=== PATIENT | male | born 1955 | race Caucasian/White ===

== ENCOUNTER 2017-11-30 18:23 | Emergency (ER) | payer OTHER ==
[~2017-11-30] VITALS: Ht 175.3 cm; Wt 90.9 kg
[~2017-11-30 18:23] MED LIST: ASPI-320 PO; DOXE10CA PO; FLUO20CA35 PO; FLV1 PO; LPT40 PO; METO25TA56 PO; MULT-589 PO; NTRSLP4 SL; PANT1TAB4 PO; PLV75 PO; RISP0.5T10 PO; THIA100T27 PO
[2017-11-30 18:29] VITALS: TEMP 36.8; Ht 175.3 cm; Wt 90.9 kg
[2017-11-30] MEDS ORDERED: CETIRIZINE HCL 10 MG TAB PO STA (19:05)
--- NOTE | 2017-11-30 19:17 | EMERGENCY ROOM VISIT NOTE ---
ED Visit Note First contact with patient: 18:36 I have seen and examined this patient with Mague Girard and generally agree with the treatment plan as discussed. Problem List Surgical Problems: (1) H/O umbilical hernia repair Status: Resolved (2) History of back surgery Status: Resolved (3) Hx of neck surgery Status: Resolved (4) S/P inguinal hernia repair Status: Resolved Current/Historical Medications Scheduled Aspirin (Aspirin EC Low Dose), 81 MG PO QAM Atorvastatin (Lipitor), 80 MG PO QAM Clopidogrel Bisulfate (Clopidogrel), 75 MG PO QAM Doxepin (Sinequan), 2 CAP PO HS Fluoxetine (Prozac), 20 MG PO QAM Folic Acid (Folic Acid), 1 MG PO QAM Metoprolol Tartrate (Lopressor) (Lopressor), 1 TAB PO twice weekly Multivitamins (Daily Dahlia), 1 TAB PO QAM Pantoprazole (Pantoprazole Sodium), 40 MG PO QAM Risperidone (Risperdal), 0.5 MG PO BID Thiamine HCl (Vitamin B-1), 100 MG PO QAM Scheduled PRN Nitroglycerin (Nitrostat), 0.4 MG SL PRN PRN for Chest Pain Allergies Coded Allergies: Lorazepam (Verified Adverse Reaction, Severe, SHORTNESS OF BREATH, 11/30/17) Pt. Received 0.5 mg of Ativan at 23:20, subsequently developed shortness of breath and decreased SPO2 - Pt. and subsequently received Flumazenil as well IV Lasix, EKG & CXR Vital Signs Date Time Temp Pulse Resp B/P (MAP) Pulse Ox O2 Delivery O2 Flow Rate FiO2 11/30/17 18:29 36.8 58 20 154/81 94 Room Air Departure Information Referrals Trenton Dean M.D. (PCP) Patient Instructions My [facility]
[2017-11-30] MEDS ORDERED: THIA1TAB11 PO (19:32)
[2017-11-30] MEDS ORDERED: PANT40TA PO (19:32)
[2017-11-30] MEDS ORDERED: LISI-729 PO (19:32)
[2017-11-30] MEDS ORDERED: METO25TA56 PO (19:32)
[2017-11-30] MEDS ORDERED: ASPI81TA28 PO (19:32)
[2017-11-30] MEDS ORDERED: ATOR-24 PO (19:32)
[2017-11-30] MEDS ORDERED: MULT-513 PO (19:32)
[2017-11-30] MEDS ORDERED: NTRGSL/4 UT (19:32)
--- NOTE | 2017-11-30 19:32 | EMERGENCY ROOM VISIT NOTE ---
ED Visit Note First contact with patient: 18:36 CHIEF COMPLAINT: right facial pain HISTORY OF PRESENT ILLNESS: This 62-year-old male patient presents to the emergency department, ambulatory, complaining of right-sided facial pain 3-4 weeks. The patient states he has been experiencing sharp pains intermittently for the past 4 weeks radiating from the right lower jaw to his right forehead. He states the pain does make the eyes water. The pain occurs almost every day at approximately 6 PM. The patient sits outside every day from 6 AM until about 4 PM. The pain occurs in the same location and is not reproducible. Patient denies any mouth swelling or drainage. He denies any dental pain. He denies any fever, chills, nausea, or neck pain. He does report some mild right- sided ear pain and states occasionally he gets vomiting in the mornings. The patient denies any congestion or upper respiratory infection symptoms, but does report some mild postnasal drainage. He has never experienced symptoms similar to this in the past. He has not seen his primary care provider regarding the complaints. REVIEW OF SYSTEMS: A 10 system review of systems was performed with positives and pertinent negatives listed in the history of present illness. All other systems were reviewed and are negative. ALLERGIES: Lorazepam PMH: Heart disease, hyperlipidemia SOCIAL HISTORY: The patient lives locally with family. He admits to smoking cigarettes but denies drug, alcohol use. PHYSICAL EXAM: VITALS: Vitals are noted on the nurse's note and reviewed by myself. Vital signs stable. GENERAL: This is a 62-year-old white male, in no acute distress, nondiaphoretic , well-developed well-nourished. SKIN: The skin was without rashes, erythema, edema, or bruising. There is no tenting of the skin. Capillary reflex less than 2 seconds. HEAD: Normocephalic atraumatic. No facial bone tenderness. No reproducible discomfort in the right mandible, TMJ, or forehead. EARS: Cerumen impaction bilaterally. After removal of most cerumen, external auditory canals clear, tympanic membranes pearly villegas without erythema or effusion bilaterally. EYES: Pupils equal round and reactive to light and accommodation. Conjunctivae without injection, sclerae without icterus. Extraocular movements intact. NOSE: Patent, turbinates without inflammation or discharge. No sinus tenderness. MOUTH: Mucous membranes moist. Tonsils are not enlarged. Pharynx without erythema or exudate. Uvula midline. Airway patent. Tongue does not deviate. NECK: Supple without nuchal rigidity. No lymphadenopathy. No thyromegaly. Cervical spine is nontender. No JVD. HEART: Regular rate and rhythm without murmurs gallops or rubs. LUNGS: Clear to auscultation bilaterally without wheezes, rales or rhonchi. No dullness to percussion. No retractions or accessory muscle use. ABDOMEN: Positive bowel sounds x 4. Normal tympanic percussion. Soft, nontender, without masses or organomegaly. Siegel sign negative. No guarding or rebound tenderness. MUSCULOSKELETAL: No muscle atrophy, erythema, or edema noted. Full range of motion without joint tenderness in all extremities. No tenderness to palpation. Normal gait. Strength 5/5 throughout. NEURO: Patient was alert and oriented to person place and time. Normal sensation to light and sharp touch. Deep tendon reflexes 2+ throughout. No focal neurological deficits. Cranial nerves II through XII intact. EMERGENCY DEPARTMENT COURSE: The patient was seen and evaluated as above. Symptoms are present in the evening after the patient has outside all day. I suspect an allergic rhinitis as the possible cause of the patient's abnormal symptoms. He states he does not experience the symptoms first thing in the morning, and they do seem worse while mowing the grass. The patient's discomfort did improve with Aleve. The patient was given a dose of Zyrtec here in the emergency department. I recommended he start on antihistamine such as Zyrtec 10 mg daily for the next week. I advised him to avoid being outside with high pollen counts or while people are mowing the grass nearby. The patient was agreeable to this treatment plan. He states he does feel that this could potentially be causing his symptoms. He was encouraged to follow-up closely with his PCP, especially if he does not experience significant improvement in symptoms. All questions answered patient satisfaction prior to discharge. Discharge instructions reviewed, the patient was discharged home in good condition. I attest that I have personally reviewed the patient's current medication list. Blood Pressure Screening: Patient was found to have a slightly elevated blood pressure due to circumstances. I do not believe that the patient requires hypertension monitoring. Differential diagnosis includes allergic rhinitis, upper respiratory infection, acute sinusitis, Alcala's palsy, intracranial hemorrhage, headache, stroke, migraine, otitis media, odontalgia, malignancy, and others DIAGNOSIS: Right facial pain The chart was completed utilizing [employer] Speech voice recognition software. Grammatical errors, random word insertions, pronoun errors, and incomplete sentences are an occasional consequence of this system due to software limitations, ambient noise, and hardware issues. Any formal questions or concerns about the content, text, or information contained within the body of this dictation should be directly addressed to the provider for clarification. Problem List Surgical Problems: (1) H/O umbilical hernia repair Status: Resolved (2) History of back surgery Status: Resolved (3) Hx of neck surgery Status: Resolved (4) S/P inguinal hernia repair Status: Resolved Current/Historical Medications Scheduled Aspirin (Aspirin Ec), 81 MG PO DAILY Atorvastatin (Lipitor), 40 MG PO DAILY Doxepin (Sinequan), 2 CAP PO HS Fluoxetine (Prozac), 20 MG PO QAM Folic Acid (Folic Acid), 1 MG PO QAM Lisinopril (Prinivil), 5 MG PO DAILY Metoprolol Tartrate (Lopressor) (Lopressor), 12.5 MG PO BID Multivitamins/Minerals (Mvi With Minerals), 1 TAB PO DAILY Nitroglycerin (Nitrostat), 0.4 MG UT PRN Pantoprazole (Protonix), 40 MG PO DAILY Risperidone (Risperdal), 0.5 MG PO BID Thiamine Mononitrate (Vitamin B1), 100 MG PO DAILY Allergies Coded Allergies: Lorazepam (Verified Adverse Reaction, Severe, SHORTNESS OF BREATH, 11/30/17) Pt. Received 0.5 mg of Ativan at 23:20, subsequently developed shortness of breath and decreased SPO2 - Pt. and subsequently received Flumazenil as well IV Lasix, EKG & CXR Vital Signs Date Time Temp Pulse Resp B/P (MAP) Pulse Ox O2 Delivery O2 Flow Rate FiO2 11/30/17 19:50 52 18 135/87 96 Room Air 11/30/17 18:29 36.8 58 20 154/81 94 Room Air Medications Administered Medications (Trade) Dose Ordered Sig/Ghada Route Start Time Stop Time Status Last Admin Dose Admin Cetirizine HCl (zyrTEC TAB) 10 mg NOW STAT PO 11/30/17 19:05 11/30/17 19:06 DC 11/30/17 19:36 10 MG Departure Information Impression Primary Impression: Right facial pain Dispostion Home / Self-Care Condition GOOD Referrals Trenton Dean M.D. (PCP) Patient Instructions ED Allergy Seasonal, My [facility] Additional Instructions You were seen in the emergency department today for right-sided facial pain. This has been ongoing for approximately 1 month. I do not suspect any acute, severe causes for your symptoms. As discussed, I suspect this may be allergy related. You should take Zyrtec 10 mg daily at bedtime in case of allergy related symptoms. Use Flonase as directed to help with any nasal congestion. Avoid sitting outside during high pollen counts or when grasses being mowed nearby to see if symptoms improve. Follow-up with your PCP in 2-3 days for re-check and ongoing management of your symptoms. Return to the ED for significantly worsening pain, swelling, numbness/tingling, redness, fever, chills, or other concerning symptoms.
[2017-11-30 19:50] VITALS: BP 135/87; PULSE 52; O2SAT 96
== END 2017-11-30 20:12 | disposition home or self-care (01) ==
LOC: C.EDB 18:25 → C.EDD 20:12
DX: R51 Headache (principal); E78.5 Hyperlipidemia, unspecified; F17.210 Nicotine dependence, cigarettes, uncomplicated; Z79.82 Long term (current) use of aspirin; Z79.899 Other long term (current) drug therapy; Z88.8 Allergy status to other drugs, medicaments and biological substances

== ENCOUNTER 2018-05-04 20:46 | Inpatient (IN) | END 2018-05-05 15:06 | disposition home or self-care (01) | LOC: ED 20:46 → 2N 05-05 01:26 → SUATTDRO 05-05 01:26 → 2N 05-05 02:06 ==

== ENCOUNTER 2022-04-25 09:54 | Inpatient (IN) ==
[2022-04-25] MEDS ORDERED: ALBUT/IPRATROP 3MG/0.5MG NEB 3 ML VIAL NEB ONE (10:09)
[2022-04-25] MEDS ORDERED: ALBUT/IPRATROP 3MG/0.5MG NEB 3 ML VIAL NEB STA (10:09)
[2022-04-25] MEDS ORDERED: methylPREDNISolone 125 MG/2 ML VIAL IV STA (10:09)
[2022-04-25] MEDS ORDERED: ALBUT/IPRATROP 3MG/0.5MG NEB 3 ML VIAL ONE (10:11)
[2022-04-25] MEDS ORDERED: AZITHROMYCIN 500 MG in DEXTROSE 5% 250 ML IV ONE (10:12)
[2022-04-25] MEDS: SODIUM CHLORIDE 0.9% 1000ML 1,000 ML IV SCH ×2 (10:25→17:56)
[2022-04-25 10:29] LABS: iSTAT Creatinine 1.7 mg/dl (0.6-1.3); iSTAT Hemoglobin 15.6 g/dl (14.0-18.0); iSTAT Ionized Calcium 1.07 mmol/l (1.12-1.32); iSTAT Potassium 4.8 mmol/L (3.3-5.0)
--- NOTE | 2022-04-25 10:33 | XRay Report ---
XR chest 1V portable CLINICAL HISTORY: Dyspnea TECHNIQUE: Single frontal radiograph of the chest was obtained. Comparison: Comparison is made to chest radiograph dated 721 FINDINGS: ACDF is noted. Calcified aortic knob is seen. Airspace opacities are seen in the bilateral lower lung s, right greater than left. No evidence of pleural effusion or pneumothorax. IMPRESSION: Bilateral lower lung predominant airspace opacities which may represent atelectasis, pneumonia, and/o r aspiration. ACT 112: Negative or not required by law. Electronically signed by: Jimenez Lawrence M.D. 04/25/2022 10:32 AM
[2022-04-25 10:48] LABS: Basophils # (auto) 0.03 K/uL (0-0.2); Basophils % (auto) 0.1 %; Eosinophils # (auto) 0.01 K/uL (0-0.50); Hematocrit (blood only) 41.8 % (40.1-51.0); Hemoglobin 15.3 g/dl (14.0-18.0); Immature Granulocytes % (auto) 1.4 %; Lymphocytes % (auto) 4.6 %; Mean Corpuscular Hemoglobin 37.2 pg (25.0-34.0); Mean Corpuscular Hgb Conc 36.6 g/dL (32.0-36.0); Mean Corpuscular Volume 101.7 fL (80.0-100.0); Monocytes # (auto) 1.26 K/uL (0.24-0.82); Monocytes % (auto) 5.8 %; Neutrophils # (auto) 19.29 K/uL (1.4-6.5); Neutrophils % (auto) 88.1 %; Platelet Count 280 K/uL (130-400); Polychromasia 1+; RDW Standard Deviation 60.3 fL (36.4-46.3); Red Blood Count 4.11 M/uL (4.63-6.08); Toxic Granulation 3+; White Blood Count 21.89 K/ul (4.8-10.8)
[2022-04-25] MEDS ORDERED: cefTRIAXone SODIUM 1,000 MG in DEXTROSE 5% AD-VAN 50 ML IV STA (10:50)
[2022-04-25 10:53] LABS: Albumin Globulin Ratio 0.8 (0.9-2); Albumin Level 3.5 gm/dl (3.4-5.0); Bilirubin,Total 1.9 mg/dl (0.2-1.0); Calcium 8.9 mg/dl (8.5-10.1); Creatinine Clr Calc Pharmacy 40.2 ml/min; Est GFR (African American) 45.1 ml/min; Est GFR (Non-African American) 38.9 ml/min; Globulin 4.4 gm/dl (2.5-4.0); Potassium 4.7 mmol/L (3.5-5.1); Total Protein 7.9 gm/dl (6.0-8.3)
[2022-04-25 10:57] LABS: Troponin I High Sensitivity 36.2 pg/ml (0-20)
--- NOTE | 2022-04-25 11:13 | Emergency Department Note ---
Impression & Plan Pneumonia, COPD with acute exacerbation ED Provider Note CHIEF COMPLAINT: Shortness of breath, cough HISTORY OF PRESENT ILLNESS: This 66-year-old male patient presents to the emergency department with complaints of shortness of breath and cough. The patient states this started several days ago but has become much worse over the last 24 hours. Patient states he currently "cannot breathe." He has never felt this poorly before. He does not wear home oxygen. He did stop smoking and drin stone alcohol 9 days ago. He states he quit "cold turkey." He denies any recent fevers or vomiting. He states he is unable to eat because of nausea, but has been holding fluids down. REVIEW OF SYSTEMS: A review of systems was performed with positives and pertinent negatives listed in the history of present illness. 10 systems were reviewed and are otherwise negative. ALLERGIES: see below MEDICATIONS: see below PMH: see below SOCIAL HISTORY: see below DDx: Reactive airway disease, pneumonia, pneumothorax, COPD, CHF, infections, cardiac ischemia, pulmonary embolism, musculoskeletal, gastrointestinal, as well as other pathologies. PHYSICAL EXAM: Vital signs reviewed. Noted to be hypoxic on room air General: Chronically ill-appearing 66-year-old male, in significant respiratory discomfort HEENT: No scleral icterus, PERRLA, neck supple. Atraumatic. Cardiovascular: Regular rate and rhythm, no extra sounds. Pulmonary: Coarse breath sounds bilaterally, increased work of breathing. On nasal cannula oxygen. Abdomen: Soft, nontender, nondistended, positive bowel sounds. Musculoskeletal: Atraumatic, no peripheral edema. Neurologic: Patient awake alert and oriented x 3, speech is clear Skin: Warm, dry, no rash EMERGENCY DEPARTMENT COURSE/MDM: This patient was evaluated and appeared to be in no significant distress. IV access was obtained the patient was placed on the waredresser noted to be in a sinus tachycardia. Chest x-ray normal sinus rhythm. Chest x-ray is consistent with COPD with patchy lower infiltrates. Blood cultures were obtained, patient was given DuoNeb treatment and IV Solu-Medrol. Patient's WBC is noted to be markedly elevated, procalcito jaky is elevated with a normal lactate. IV ceftriaxone and azithromycin were initiated. Patient's case was discussed with the hospitalist service for admission and further management. Patient is aware of the plan and agreed. MONITORING: An order for cardiac monitoring was placed and the patient is noted to be in a normal sinus rhythm at 99 bpm beats per minute. Chest x-ray to my interpretation reveals changes consistent with COPD and bilateral patchy airspace opacities, otherwise defer to radiology over read. EKG to my interpretation reveals sinus tachycardia with PACs at 101 bpm. Possib le left atrial enlargement. Nonspecific ST abnormality. QTC is 474. DISPOSITION:Admit Past Med/Surg History Medical History Anxiety Arthritis Chronic back pain GERD (gastroesophageal reflux disease) Hearing deficit Hyperlipidemia Hypertension Myocardial infarction 03/06/2017 On anticoagulant therapy on plavix daily Shoulder pain, right Surgical History History of arthroscopy of left shoulder x2 History of cardiac cath 2016 History of esophagogastroduodenoscopy (EGD) History of fusion of cervical spine x2--normal ROM History of heart artery stent 2 stents 02/2017 @ [facility] follows with Dr. Negro History of left inguinal hernia repair History of lumbar discectomy History of right inguinal hernia repair History of surgical procedure on eye proper using laser left History of tooth extraction all teeth removed Family History Mother Family history of diabetes mellitus Family hx of colon cancer Brother Family history of esophageal cancer twin brother Other No family history of adverse response to anesthesia Social History Smoking Status: Former smoker Tobacco Type: Cigarettes Cigarettes Per Day: 20 a day; Second Hand Exposure: No; Hx Alcohol Use: Yes Alcohol type: beer Hx Substance Use: No Preferred Language: [place] Communication Ability: Effective Marketing And Communications Officer Required: No Beliefs That Will Affect Care: None Current Living Situation: Family Feels Safe at Home: Yes Seatbelt Use: always Assistive Devices: None Allergies Allergies Allergy/AdvReac Type Severity Reaction Status Date / Time No Known Allergies Allergy Verified 04/25/22 14:59 Home Meds Previous Rx's Medication Instructions Recorded isosorbide mononitrate 30 mg 30 mg PO QAM #90 tabs 09/08/21 tablet,extended release 24 hr clopidogrel 75 mg tablet (Plavix) 75 mg PO QAM #90 tabs 09/09/21 metoprolol succinate 25 mg 25 mg PO QAM #90 tabs 09/30/21 tablet,extended release 24 hr atorvastatin 40 mg tablet (Lipitor) 40 mg PO QAM #90 tabs 02/06/22 fluticasone furoate 100 1 puff inhalation DAILY #1 inhaler 05/02/22 mcg-vilanterol 25 mcg/dose inhalation powder (Breo Ellipta) ipratropium 0.5 mg-albuterol 3 mg 3 ml inhalation Q6R PRN 05/02/22 (2.5 mg base)/3 mL nebulization cough/wheeze/shortness of breath soln #1 box levofloxacin 750 mg tablet 750 mg PO DAILY 3 days #3 tabs 05/02/22 lisinopril 10 mg tablet 5 mg PO QAM #30 tabs 05/02/22 prednisone 10 mg tablet 10 mg PO DIRECTED #20 tabs 05/02/22 thiamine HCl (vitamin B1) 100 mg 200 mg PO BID 30 days #120 tabs 05/02/22 tablet Results & Data (ED) Vital Signs Vital Signs - 24 hr 04/25/22 09:59 04/25/22 10:24 04/25/22 10:04 Temperature 36.0 C L Temperature Source Temporal Artery Scan Pulse Rate 101 H Pulse Rate [Finger] 99 H 101 H Pulse Rhythm Regular Pulse Strength Normal Respiratory Rate 40 H 38 H 42 H Respiratory Effort / Characteristics Spontaneous Accessory Muscle Use Short of Breath SOB on Exertion Tripoding Spontaneous Accessory Muscle Use Labored Moaning Pursed Lip Respiratory Depth Retractive Respiratory Pattern Tachypnea Tachypnea Blood Pressure 125/60 Blood Pressure [Right Arm] 95/65 L Blood Pressure Mean 81 Blood Pressure Mean [Right Arm] 75 Blood Pressure Position Sitting Blood Pressure Position [Right Arm] Sitting Pulse Oximetry 78 L 91 90 Oxygen Delivery Method Room Air Nebulizer Oxymask Oxygen Flow Rate 7 8 Sepsis Recent Fever Within 48 Hours No Sepsis New/Unexplained Change in Mental Status No Sepsis Action Taken by Nursing Physician Notified 04/25/22 10:04 Temperature Temperature Source Pulse Rate Pulse Rate [Finger] Pulse Rhythm Pulse Strength Respiratory Rate Respiratory Effort / Characteristics Respiratory Depth Respiratory Pattern Blood Pressure Blood Pressure [Right Arm] Blood Pressure Mean Blood Pressure Mean [Right Arm] Blood Pressure Position Blood Pressure Position [Right Arm] Pulse Oximetry 90 Oxygen Delivery Method Oxymask Oxygen Flow Rate 8 Sepsis Recent Fever Within 48 Hours Sepsis New/Unexplained Change in Mental Status Sepsis Action Taken by [facility] Medications Current Medication List: was personally reviewed by me Laboratory Data Attestation: I reviewed the patient's lab results. 05/02/22 06:14 05/02/22 06:14 Lab Results 04/25/22 04/25/22 04/25/22 Range/Units 10:15 10:15 10:15 WBC 21.89 H (4.8-10.8) K/ul RBC 4.11 L (4.63-6.08) M/uL Hgb 15.3 (14.0-18.0) g/dl POC Hgb (14.0-18.0) g/dl Hct 41.8 (40.1-51.0) % POC Hct (42-52) % MCV 101.7 H (80.0-100.0) fL MCH 37.2 H (25.0-34.0) pg MCHC 36.6 H (32.0-36.0) g/dL RDW Std Deviation 60.3 H (36.4-46.3) fL RDW Coeff of Beronica 16.0 H (11.5-14.5) % Plt Count 280 (130-400) K/uL MPV 10.0 (9.4-12.4) fL Immature Gran % (Auto) 1.4 % Neut % (Auto) 88.1 % Lymph % (Auto) 4.6 % [place] % (Auto) 5.8 % Eos % (Auto) 0.0 % Baso % (Auto) 0.1 % Neut # (Auto) 19.29 H (1.4-6.5) K/uL Lymph # (Auto) 1.00 L (1.2-3.4) K/uL [place] # (Auto) 1.26 H (0.24-0.82) K/uL Eos # (Auto) 0.01 (0-0.50) K/uL Baso # (Auto) 0.03 (0-0.2) K/uL Immature Gran # (Auto) 0.30 H (0.00-0.02) K/uL Toxic Granulation 3+ Polychromasia 1+ POC Sodium (135-144) mmol/L Sodium 131 L (136-145) mmol/L POC Potassium (3.3-5.0) mmol/L Potassium 4.7 (3.5-5.1) mmol/L POC Chloride (101-112) mmol/L Chloride 96 L (98-107) mmol/L Carbon Dioxide 23 (21-32) mmol/L POC Total CO2 (24-31) mmol/L Anion Gap 12 H (3-11) POC Anion Gap (16-25) mmol/L POC BUN (7-18) mg/dl BUN 37 H (6-23) mg/dl Creatinine 1.76 H (0.6-1.4) mg/dl POC Creatinine (0.6-1.3) mg/dl Est Cr Clr Drug Dosing 40.2 ml/min Est GFR ( Amer) 45.1 ml/min Est GFR (Non-Af Amer) 38.9 ml/min BUN/Creatinine Ratio 21.0 H (10-20) Glucose 172 H (70-99(Fasting)) mg/dl POC Glucose (other) (70-99) mg/dl Lactate (0.4-2.0) mmol/L Calcium 8.9 (8.5-10.1) mg/dl POC Ioniz Calcium Marti (1.12-1.32) mmol/l Total Bilirubin 1.9 H (0.2-1.0) mg/dl AST 100 H (13-39) U/L ALT 61 H (7-52) U/L Alkaline Phosphatase 101 (34-104) U/L Troponin I High Sens 36.2 H (0-20) pg/ml C-Reactive Protein 33.28 H (0-0.5) mg/dl Total Protein 7.9 (6.0-8.3) gm/dl Albumin 3.5 (3.4-5.0) gm/dl Globulin 4.4 H (2.5-4.0) gm/dl Albumin/Globulin Ratio 0.8 L (0.9-2) Procalcitonin (0-0.5) ng/ml SARS-CoV-2 (PCR) (Negative) 04/25/22 04/25/22 04/25/22 Range/Units 10:15 10:16 11:01 WBC (4.8-10.8) K/ul RBC (4.63-6.08) M/uL Hgb (14.0-18.0) g/dl POC Hgb 15.6 (14.0-18.0) g/dl Hct (40.1-51.0) % POC Hct 46 (42-52) % MCV (80.0-100.0) fL MCH (25.0-34.0) pg MCHC (32.0-36.0) g/dL RDW Std Deviation (36.4-46.3) fL RDW Coeff of Beronica (11.5-14.5) % Plt Count (130-400) K/uL MPV (9.4-12.4) fL Immature Gran % (Auto) % Neut % (Auto) % Lymph % (Auto) % [place] % (Auto) % Eos % (Auto) % Baso % (Auto) % Neut # (Auto) (1.4-6.5) K/uL Lymph # (Auto) (1.2-3.4) K/uL [place] # (Auto) (0.24-0.82) K/uL Eos # (Auto) (0-0.50) K/uL Baso # (Auto) (0-0.2) K/uL Immature Gran # (Auto) (0.00-0.02) K/uL Toxic Granulation Polychromasia POC Sodium 131 L (135-144) mmol/L Sodium (136-145) mmol/L POC Potassium 4.8 (3.3-5.0) mmol/L Potassium (3.5-5.1) mmol/L POC Chloride 98 L (101-112) mmol/L Chloride (98-107) mmol/L Carbon Dioxide (21-32) mmol/L POC Total CO2 22 L (24-31) mmol/L Anion Gap (3-11) POC Anion Gap 17.0 (16-25) mmol/L POC BUN 35 H (7-18) mg/dl BUN (6-23) mg/dl Creatinine (0.6-1.4) mg/dl POC Creatinine 1.7 H (0.6-1.3) mg/dl Est Cr Clr Drug Dosing ml/min Est GFR ( Amer) ml/min Est GFR (Non-Af Amer) ml/min BUN/Creatinine Ratio (10-20) Glucose (70-99(Fasting)) mg/dl POC Glucose (other) 172 H (70-99) mg/dl Lactate 1.6 (0.4-2.0) mmol/L Calcium (8.5-10.1) mg/dl POC Ioniz Calcium Marti 1.07 L (1.12-1.32) mmol/l Total Bilirubin (0.2-1.0) mg/dl AST (13-39) U/L ALT (7-52) U/L Alkaline Phosphatase (34-104) U/L Troponin I High Sens (0-20) pg/ml C-Reactive Protein (0-0.5) mg/dl Total Protein (6.0-8.3) gm/dl Albumin (3.4-5.0) gm/dl Globulin (2.5-4.0) gm/dl Albumin/Globulin Ratio (0.9-2) Procalcitonin 0.86 H (0-0.5) ng/ml SARS-CoV-2 (PCR) (Negative) 04/25/22 Range/Units 11:35 WBC (4.8-10.8) K/ul RBC (4.63-6.08) M/uL Hgb (14.0-18.0) g/dl POC Hgb (14.0-18.0) g/dl Hct (40.1-51.0) % POC Hct (42-52) % MCV (80.0-100.0) fL MCH (25.0-34.0) pg MCHC (32.0-36.0) g/dL RDW Std Deviation (36.4-46.3) fL RDW Coeff of Beronica (11.5-14.5) % Plt Count (130-400) K/uL MPV (9.4-12.4) fL Immature Gran % (Auto) % Neut % (Auto) % Lymph % (Auto) % [place] % (Auto) % Eos % (Auto) % Baso % (Auto) % Neut # (Auto) (1.4-6.5) K/uL Lymph # (Auto) (1.2-3.4) K/uL [place] # (Auto) (0.24-0.82) K/uL Eos # (Auto) (0-0.50) K/uL Baso # (Auto) (0-0.2) K/uL Immature Gran # (Auto) (0.00-0.02) K/uL Toxic Granulation Polychromasia POC Sodium (135-144) mmol/L Sodium (136-145) mmol/L POC Potassium (3.3-5.0) mmol/L Potassium (3.5-5.1) mmol/L POC Chloride (101-112) mmol/L Chloride (98-107) mmol/L Carbon Dioxide (21-32) mmol/L POC Total CO2 (24-31) mmol/L Anion Gap (3-11) POC Anion Gap (16-25) mmol/L POC BUN (7-18) mg/dl BUN (6-23) mg/dl Creatinine (0.6-1.4) mg/dl POC Creatinine (0.6-1.3) mg/dl Est Cr Clr Drug Dosing ml/min Est GFR ( Amer) ml/min Est GFR (Non-Af Amer) ml/min BUN/Creatinine Ratio (10-20) Glucose (70-99(Fasting)) mg/dl POC Glucose (other) (70-99) mg/dl Lactate (0.4-2.0) mmol/L Calcium (8.5-10.1) mg/dl POC Ioniz Calcium Marti (1.12-1.32) mmol/l Total Bilirubin (0.2-1.0) mg/dl AST (13-39) U/L ALT (7-52) U/L Alkaline Phosphatase (34-104) U/L Troponin I High Sens (0-20) pg/ml C-Reactive Protein (0-0.5) mg/dl Total Protein (6.0-8.3) gm/dl Albumin (3.4-5.0) gm/dl Globulin (2.5-4.0) gm/dl Albumin/Globulin Ratio (0.9-2) Procalcitonin (0-0.5) ng/ml SARS-CoV-2 (PCR) NEGATIVE (Negative) Administered Medications Discontinued Medications Albuterol (Albut/Ipratrop 3mg/0.5mg Neb 3 Ml Vial) 3 ml NEB NOW STA; Protocol Stop: 04/25/22 10:10 Last Admin: 04/25/22 10:25 Dose: 3 ml Documented By: ODALIS Albuterol (Albut/Ipratrop 3mg/0.5mg Neb 3 Ml Vial) 12 ml NEB ONE ONE; Protocol Stop: 04/25/22 10:10 Last Admin: 04/25/22 10:20 Dose: 12 ml Documented By: ARLEY Albuterol (Albut/Ipratrop 3mg/0.5mg Neb 3 Ml Vial) Confirm Administered Dose 3 ml .ROUTE .STK-MED ONE Stop: 04/25/22 10:12 Last Admin: 04/25/22 10:25 Dose: Not Given Documented By: ODALIS Albuterol (Albut/Ipratrop 3mg/0.5mg Neb 3 Ml Vial) 3 ml INH Q6R ANGEL Stop: 05/25/22 18:59 Last Admin: 05/02/22 13:20 Dose: Not Given Documented By: Admin: 05/02/22 07:14 Dose: 3 ml Documented By: Admin: 05/02/22 01:58 Dose: Not Given Documented By: Admin: 05/01/22 20:10 Dose: 3 ml Documented By: Admin: 05/01/22 12:32 Dose: 3 ml Documented By: Admin: 05/01/22 07:23 Dose: 3 ml Documented By: Admin: 05/01/22 01:12 Dose: 3 ml Documented By: Admin: 04/30/22 19:36 Dose: 3 ml Documented By: Admin: 04/30/22 13:07 Dose: 3 ml Documented By: Admin: 04/30/22 07:15 Dose: 3 ml Documented By: Admin: 04/30/22 00:12 Dose: 3 ml Documented By: Admin: 04/29/22 20:21 Dose: 3 ml Documented By: Admin: 04/29/22 12:53 Dose: 3 ml Documented By: Admin: 04/29/22 05:08 Dose: 3 ml Documented By: Admin: 04/29/22 00:25 Dose: 3 ml Documented By: Admin: 04/28/22 19:20 Dose: 3 ml Documented By: Admin: 04/28/22 13:02 Dose: 3 ml Documented By: Admin: 04/28/22 07:24 Dose: 3 ml Documented By: Admin: 04/28/22 00:38 Dose: 3 ml Documented By: Admin: 04/27/22 19:33 Dose: Not Given Documented By: Admin: 04/27/22 12:17 Dose: 3 ml Documented By: Admin: 04/27/22 05:04 Dose: 3 ml Documented By: Admin: 04/27/22 00:37 Dose: 3 ml Documented By: Admin: 04/26/22 19:42 Dose: 3 ml Documented By: Admin: 04/26/22 13:06 Dose: 3 ml Documented By: Admin: 04/26/22 05:40 Dose: 3 ml Documented By: Admin: 04/25/22 23:40 Dose: 3 ml Documented By: Admin: 04/25/22 19:14 Dose: 3 ml Documented By: FAVIO Atorvastatin Calcium (Atorvastatin 40 Mg Tab) 40 mg PO QA ANGEL Stop: 05/26/22 08:59 Last Admin: 05/02/22 08:20 Dose: 40 mg Documented By: Admin: 05/01/22 08:53 Dose: 40 mg Documented By: Admin: 04/30/22 08:36 Dose: 40 mg Documented By: Admin: 04/29/22 09:16 Dose: 40 mg Documented By: Admin: 04/28/22 09:52 Dose: 40 mg Documented By: Admin: 04/27/22 08:52 Dose: 40 mg Documented By: Admin: 04/26/22 08:53 Dose: 40 mg Documented By: SAUL Clopidogrel Bisulfate (Clopidogrel Bisulfate 75 Mg Tab) [facility] [place] Stop: 05/26/22 08:59 Last Admin: 05/02/22 09:44 Dose: 75 mg Documented By: Admin: 05/01/22 08:53 Dose: 75 mg Documented By: Admin: 04/30/22 08:36 Dose: 75 mg Documented By: Admin: 04/29/22 09:16 Dose: 75 mg Documented By: Admin: 04/28/22 09:52 Dose: 75 mg Documented By: Admin: 04/27/22 08:52 Dose: 75 mg Documented By: Admin: 04/26/22 08:53 Dose: 75 mg Documented By: SAUL Enoxaparin Sodium (Enoxaparin Inj 40 Mg/0.4 Ml Syr) 40 mg SQ Q24H ANGEL Stop: 05/25/22 16:59 Last Admin: 05/01/22 17:18 Dose: 40 mg Documented By: Admin: 04/30/22 17:45 Dose: 40 mg Documented By: Admin: 04/29/22 18:15 Dose: 40 mg Documented By: Admin: 04/28/22 17:19 Dose: 40 mg Documented By: Admin: 04/27/22 17:41 Dose: 40 mg Documented By: Admin: 04/26/22 17:17 Dose: 40 mg Documented By: Admin: 04/25/22 17:55 Dose: 40 mg Documented By: BISMARK Fluticasone/Vilanterol (Fluticasone/Vilanterol 100/25mcg 14 Puffs/Inhaler) 1 puffs INH DAILY ANGEL Stop: 05/26/22 14:14 Last Admin: 05/02/22 08:20 Dose: 1 puffs Documented By: Admin: 05/01/22 08:53 Dose: 1 puffs Documented By: Admin: 04/30/22 08:36 Dose: 1 puffs Documented By: Admin: 04/29/22 09:16 Dose: 1 puffs Documented By: Admin: 04/28/22 09:53 Dose: 1 puffs Documented By: Admin: 04/27/22 08:52 Dose: 1 puffs Documented By: Admin: 04/26/22 14:39 Dose: 1 puffs Documented By: SAUL Folic Acid (Folic Acid 1 Mg Tab) 1 mg PO QAM ANGEL Stop: 05/25/22 16:59 Last Admin: 05/02/22 08:20 Dose: 1 mg Documented By: Admin: 05/01/22 08:54 Dose: 1 mg Documented By: Admin: 04/30/22 08:36 Dose: 1 mg Documented By: Admin: 04/29/22 09:17 Dose: 1 mg Documented By: Admin: 04/28/22 09:52 Dose: 1 mg Documented By: Admin: 04/27/22 08:52 Dose: 1 mg Documented By: Admin: 04/26/22 08:52 Dose: 1 mg Documented By: Admin: 04/25/22 17:55 Dose: 1 mg Documented By: BISMARK Gabapentin (Gabapentin 600 Mg Tab) 600 mg PO NOW ONE Stop: 04/26/22 14:04 Last Admin: 04/26/22 14:39 Dose: 600 mg Documented By: SAUL Gabapentin (Gabapentin 100 Mg Cap) 100 mg PO ANGEL Stop: 04/27/22 06:01 Last Admin: 04/27/22 05:27 Dose: 100 mg Documented By: Admin: 04/26/22 21:43 Dose: 100 mg Documented By: ANDREAS Gabapentin (Gabapentin 600 Mg Tab) 600 mg PO Q24H ANGEL Stop: 04/27/22 14:31 Last Admin: 04/27/22 14:33 Dose: 600 mg Documented By: MARINE Gabapentin (Gabapentin 400 Mg Cap) 400 mg PO Q24H ANGEL Stop: 04/28/22 14:31 Last Admin: 04/28/22 14:56 Dose: 400 mg Documented By: SUHAIL Gabapentin (Gabapentin 100 Mg Cap) 200 mg PO Q24H ANGEL Stop: 04/29/22 14:31 Last Admin: 04/29/22 14:30 Dose: 200 mg Documented By: KT Guaifenesin (Guaifenesin 600 Mg Tabcr) 1,200 mg PO BID ANGEL Stop: 05/25/22 20:59 Last Admin: 05/02/22 08:19 Dose: 1,200 mg Documented By: Admin: 05/01/22 20:31 Dose: 1,200 mg Documented By: Admin: 05/01/22 08:53 Dose: 1,200 mg Documented By: Admin: 04/30/22 21:32 Dose: 1,200 mg Documented By: Admin: 04/30/22 08:37 Dose: 1,200 mg Documented By: Admin: 04/29/22 22:06 Dose: 1,200 mg Documented By: Admin: 04/29/22 09:17 Dose: 1,200 mg Documented By: Admin: 04/28/22 21:44 Dose: 1,200 mg Documented By: Admin: 04/28/22 09:52 Dose: 1,200 mg Documented By: Admin: 04/27/22 19:42 Dose: 1,200 mg Documented By: Admin: 04/27/22 08:52 Dose: 1,200 mg Documented By: Admin: 04/26/22 21:43 Dose: 1,200 mg Documented By: Admin: 04/26/22 08:52 Dose: 1,200 mg Documented By: Admin: 04/25/22 20:26 Dose: 1,200 mg Documented By: ILIA Azithromycin 500 mg/ Dextrose 255 mls @ 125 mls/hr IV ONE ONE Stop: 04/25/22 12:14 Last Infusion: 04/25/22 13:49 Dose: 0 mls/hr Documented By: [id number] Admin: 04/25/22 11:25 Dose: 125 mls/hr Documented By: [id number] Sodium Chloride (Nss 1000ml) 1,000 mls @ 50 mls/hr IV .Q20H ANGEL Stop: 05/25/22 10:14 Last Infusion: 04/26/22 17:37 Dose: 0 mls/hr Documented By: Admin: 04/26/22 09:26 Dose: 125 mls/hr Documented By: Infusion: 04/26/22 09:26 Dose: 125 mls/hr Documented By: Admin: 04/26/22 01:37 Dose: 125 mls/hr Documented By: Infusion: 04/26/22 01:37 Dose: 125 mls/hr Documented By: Admin: 04/25/22 17:56 Dose: 125 mls/hr Documented By: Infusion: 04/25/22 17:44 Dose: 0 mls/hr Documented By: Admin: 04/25/22 10:25 Dose: 125 mls/hr Documented By: ODALIS Ceftriaxone Sodium 1,000 mg/ (Dextrose) 50 mls @ 100 mls/hr IV NOW STA Stop: 04/25/22 11:19 Last Infusion: 04/25/22 13:49 Dose: 0 mls/hr Documented By: [id number] Admin: 04/25/22 11:25 Dose: 100 mls/hr Documented By: [id number] Ceftriaxone Sodium 1,000 mg/ (Dextrose) 50 mls @ 100 mls/hr IV Q24H ANGEL; Protocol Stop: 05/03/22 10:59 Last Infusion: 04/28/22 12:26 Dose: 0 mls/hr Documented By: KJRafa Admin: 04/28/22 11:45 Dose: 100 mls/hr Documented By: Infusion: 04/27/22 10:47 Dose: 0 mls/hr Documented By: Admin: 04/27/22 10:14 Dose: 100 mls/hr Documented By: Infusion: 04/26/22 14:29 Dose: 0 mls/hr Documented By: Admin: 04/26/22 13:54 Dose: 100 mls/hr Documented By: SAUL Azithromycin 500 mg/ Dextrose 255 mls @ 127.5 mls/hr IV Q24H ANGEL Stop: 05/03/22 10:59 Last Infusion: 04/28/22 12:26 Dose: 0 mls/hr Documented By: Admin: 04/28/22 10:02 Dose: 127.5 mls/hr Documented By: Infusion: 04/27/22 12:43 Dose: 0 mls/hr Documented By: Admin: 04/27/22 10:41 Dose: 127.5 mls/hr Documented By: Infusion: 04/26/22 14:08 Dose: 0 mls/hr Documented By: Admin: 04/26/22 11:31 Dose: 127.5 mls/hr Documented By: SAUL Methylprednisolone 40 mg/ (Syringe) 0.64 mls @ 1.5 mls/min IV BID ANGEL Stop: 05/26/22 20:59 Last Admin: 05/02/22 08:19 Dose: 1.5 mls/min Documented By: Admin: 05/01/22 20:28 Dose: 1.5 mls/min Documented By: Admin: 05/01/22 08:54 Dose: 1.5 mls/min Documented By: Admin: 04/30/22 21:33 Dose: 1.5 mls/min Documented By: Admin: 04/30/22 08:35 Dose: 1.5 mls/min Documented By: Admin: 04/29/22 22:07 Dose: 1.5 mls/min Documented By: Admin: 04/29/22 09:18 Dose: 1.5 mls/min Documented By: Admin: 04/28/22 21:44 Dose: 1.5 mls/min Documented By: Admin: 04/28/22 09:53 Dose: 1.5 mls/min Documented By: Admin: 04/27/22 19:42 Dose: 1.5 mls/min Documented By: Admin: 04/27/22 08:52 Dose: 1.5 mls/min Documented By: Admin: 04/26/22 21:43 Dose: 1.5 mls/min Documented By: ANDREAS Methylprednisolone 60 mg/ (Syringe) 0.96 mls @ 1.5 mls/min IV 0100 ONE Stop: 04/27/22 01:01 Last Admin: 04/27/22 01:41 Dose: 1.5 mls/min Documented By: ANDREAS Cefepime HCl 1,000 mg/ Syringe 10 mls @ 5 mls/min IV Q12H ANGEL; Protocol Stop: 05/06/22 08:44 Last Admin: 05/02/22 08:23 Dose: 5 mls/min Documented By: Admin: 05/01/22 20:27 Dose: 5 mls/min Documented By: Admin: 05/01/22 08:52 Dose: 5 mls/min Documented By: Admin: 04/30/22 21:32 Dose: 5 mls/min Documented By: Admin: 04/30/22 08:35 Dose: 5 mls/min Documented By: Admin: 04/29/22 22:18 Dose: 5 mls/min Documented By: Admin: 04/29/22 09:16 Dose: 5 mls/min Documented By: KT Insulin Aspart (Insulin Aspart Per Unit) 0 units SC ACHS ANGEL Stop: 05/29/22 21:59 Last Admin: 05/02/22 11:53 Dose: Not Given Documented By: Admin: 05/02/22 08:13 Dose: 2 units Documented By: SAUL Co-signed By: [email or web address] Admin: 05/01/22 20:54 Dose: 2 units Documented By: OSKAR Co-signed By: BEAU Admin: 05/01/22 17:01 Dose: 4 units Documented By: KAYLA Co-signed By: [id number] Admin: 05/01/22 12:23 Dose: 6 units Documented By: KAYLA Co-signed By: [id number] Admin: 05/01/22 08:36 Dose: 4 units Documented By: KAYLA Co-signed By: [id number] Admin: 04/30/22 21:32 Dose: Not Given Documented By: Admin: 04/30/22 17:14 Dose: 13 units Documented By: KAYLA Co-signed By: [id number] Admin: 04/30/22 12:40 Dose: 10 units Documented By: KAYLA Co-signed By: [id number] Admin: 04/30/22 08:26 Dose: 2 units Documented By: KAYLA Co-signed By: [id number] Admin: 04/29/22 22:05 Dose: 2 units Documented By: KIKA Co-signed By: BEAU Insulin Glargine (Lantus Per Unit Charge) 8 units SQ HS ANGEL Stop: 05/28/22 21:34 Last Admin: 05/01/22 20:55 Dose: 8 units Documented By: OSKAR Co-signed By: BEAU Admin: 04/30/22 21:32 Dose: 8 units Documented By: KIKA Co-signed By: MARIPOSA Admin: 04/29/22 22:05 Dose: 8 units Documented By: KIKA Co-signed By: BEAU Admin: 04/28/22 21:40 Dose: 8 units Documented By: KIKA Co-signed By: MARIPOSA Ioversol (Optiray 350 100ml) 113 ml IV ONCE ONE Stop: 04/26/22 15:18 Last Admin: 04/26/22 15:19 Dose: 113 ml Documented By: DON Isosorbide Mononitrate (Isosorbide [place] Extended Rel 30 Mg Tabcr) 30 mg PO QAM [facility] Stop: 05/26/22 08:59 Last Admin: 05/02/22 08:19 Dose: 30 mg Documented By: Admin: 05/01/22 08:53 Dose: 30 mg Documented By: Admin: 04/30/22 08:37 Dose: 30 mg Documented By: Admin: 04/29/22 09:17 Dose: 30 mg Documented By: Admin: 04/28/22 09:52 Dose: 30 mg Documented By: Admin: 04/27/22 08:52 Dose: 30 mg Documented By: Admin: 04/26/22 08:52 Dose: 30 mg Documented By: SAUL Levofloxacin (Levofloxacin 750 Mg Tab) 750 mg PO DAILY ANGEL Stop: 05/06/22 15:59 Last Admin: 05/02/22 15:06 Dose: 750 mg Documented By: SAUL Methylprednisolone (Methylprednisolone 125 Mg/2 Ml Vial) 60 mg IV NOW STA Stop: 04/25/22 10:10 Last Admin: 04/25/22 10:23 Dose: 60 mg Documented By: ODALIS Metoprolol Succinate (Metoprolol Succ 25mg Ext Rel Tab) [facility] [place] Stop: 05/26/22 08:59 Last Admin: 05/02/22 08:20 Dose: 25 mg Documented By: Admin: 05/01/22 08:53 Dose: 25 mg Documented By: Admin: 04/30/22 08:36 Dose: 25 mg Documented By: Admin: 04/29/22 09:18 Dose: 25 mg Documented By: Admin: 04/28/22 09:52 Dose: 25 mg Documented By: Admin: 04/27/22 08:52 Dose: 25 mg Documented By: Admin: 04/26/22 08:53 Dose: 25 mg Documented By: SAUL Prednisone (Prednisone 20 Mg Tab) 40 mg PO [facility] Stop: 05/01/22 08:59 Last Admin: 04/26/22 08:52 Dose: 40 mg Documented By: SAUL Sodium Chloride (Sodium Chlor 7% 4 Ml Neb) 4 ml NEB BIDR [facility] Stop: 05/27/22 20:59 Last Admin: 05/02/22 07:14 Dose: 4 ml Documented By: Admin: 05/01/22 20:10 Dose: 4 ml Documented By: Admin: 05/01/22 07:23 Dose: 4 ml Documented By: Admin: 04/30/22 19:36 Dose: 4 ml Documented By: Admin: 04/30/22 07:15 Dose: 4 ml Documented By: Admin: 04/29/22 20:21 Dose: 4 ml Documented By: Admin: 04/29/22 08:05 Dose: 4 ml Documented By: Admin: 04/28/22 19:21 Dose: 4 ml Documented By: Admin: 04/28/22 07:24 Dose: 4 ml Documented By: Admin: 04/27/22 20:33 Dose: Not Given Documented By: CS Thiamine HCl (Thiamine Hcl 100 Mg Tab) 100 mg PO [facility] Stop: 05/25/22 16:59 Last Admin: 05/02/22 08:19 Dose: 100 mg Documented By: Admin: 05/01/22 08:53 Dose: 100 mg Documented By: Admin: 04/30/22 08:36 Dose: 100 mg Documented By: Admin: 04/29/22 09:18 Dose: 100 mg Documented By: Admin: 04/28/22 09:52 Dose: 100 mg Documented By: Admin: 04/27/22 08:52 Dose: 100 mg Documented By: Admin: 04/26/22 08:52 Dose: 100 mg Documented By: Admin: 04/25/22 17:55 Dose: 100 mg Documented By: JRT Imaging Data Radiologist's Impression: Chest X-Ray 04/25/22 10:04 XR chest 1V portable CLINICAL HISTORY: Dyspnea TECHNIQUE: Single frontal radiograph of the chest was obtained. Comparison: Comparison is made to chest radiograph dated 721 FINDINGS: ACDF is noted. Calcified aortic knob is seen. Airspace opacities are seen in the bilateral lower lungs, right greater than left. No evidence of pleural effusion or pneumothorax. IMPRESSION: Bilateral lower lung predominant airspace opacities which may represent atelectasis, pneumonia, and/or aspiration. ACT 112: Negative or not required by law. Electronically signed by: Jimenez Lawrence M.D. 04/25/2022 10:32 AM Blood Pressure Blood Pressure Findings: Low blood pressure Discharge Plan Visit Data Chief Complaint: Cough Stated Complaint: COUGH X9 DAYS ED Provider: Belkys Lozano Discharge Problem: Pneumonia, COPD with acute exacerbation Patient Disposition: Admitted As Inpatient Discharge Instructions Interventions: ED Discharge Assessment Last Done: 04/25/22 15:53
--- NOTE | 2022-04-25 13:03 | History & Physical Report ---
Date of Service April 25, 2022 Assessment & Plan (1) Community acquired pneumonia: Plan: 9 days of night sweats, fatigue, weakness, anorexia. Presented hypoxic 78% on room air, tachypneic with RR 3040s, now breathing more comfortably after nebulizer treatment, IV steroids. CXR: Bilateral lower lung predominant airspace opacities which may represent atelectasis, pneumonia, and/or aspiration. WBC 21 with left shift, Pro-Farzad 0.86, lactate 1.6. CRP pending. COVID-negative. Will treat as CAP, with azithromycin and Rocephin Supportive care: DuoNebs scheduled and as needed, Mucinex, added prednisone, flutter valve and incentive spirometry, Tylenol for pain/fevers. (2) Acute respiratory failure: Plan: Secondary to pneumonia, patient does not wear oxygen at home but a longstand ing history of tobacco use, may have underlying COPD. ABG obtained on presentation, however CO2 on chemistry panel 23. Management of pneumonia as above. (3) Sepsis: Plan: Secondary to bacterial pneumonia, WBC 21, RR 3040s, HR > 90. Management of pneumonia/respiratory failure as above. (4) Acute kidney injury: Plan: Creatinine 1.76, baseline 0.7-0.9. Likely secondary to dehydration and infection. Received IVF in ED, will continue on the floor. Hold lisinopril until renal function improves. Monitor renal function on a.m. labs. Avoid nephrotoxins, renally dose medications as able. (5) Hyponatremia: Plan: 131, is fairly consistent with his baseline of the ears, likely secondary to beer potomania. We will give some IVF for YULISSA likely secondary to dehydration or infection, follow sodium on AM labs. (6) CAD, multiple vessel: Plan: Anterior STEMI 2016: SP PCI, SALBADOR to ostial LAD and circumflex. Repeat May 2018: Patent LAD stent, moderate LCx stent ISR, negative IFR mid RCA Continue metoprolol, isosorbide mononitrate; hold lisinopril due to YULISSA. Continue Plavix. Continue statin. (7) Ischemic cardiomyopathy: Plan: History of after his anterior STEMI in 2015, EF recovered in 19. Exercise SPECT 05/2018: Positive for small amount of mild anterior apical/apical ischemia (SDS 4), 7.2 METS, LVEF 56%. (8) HTN (hypertension): Plan: Patient is borderline hypotensive in the ED, did take his morning meds today, [employer] SERVICES DIRECTOR> metoprolol 25 mg daily, lisinopril 10 mg daily, isosorbide mononitrate 30 mg daily. Will have these scheduled to be given tomorrow, with hold parameters in the case the patient remains hypotensive. Monitor BP closely. (9) Rotator cuff tear, right: Plan: Follows with Dr. Lopez with orthopedic surgery, patient is planning to undergo reverse shoulder replacement this spring. Prescribed Percocet as needed for pain. (10) Alcohol use disorder: Plan: Patient regularly drinks 10 to 10 cans of beer daily, however has not been able to do so for 9 days given his illness. Has been tremulous for the past 9 days may be multifactorial to withdrawal and his night sweats, will place on AWSS this at risk protocol. Daily thiamine and folate supplementation. T bili 1.9, AST 100, ALT 61. Has a history of elevated LFTs, today they are mildly increased compared to labs from November 2020. Without any abdominal pain, vomiting, ascites. Suspect secondary to chronic alcohol use disorder. Continue to trend while admitted. (11) Tobacco abuse: Plan: Longstanding history of 1 pack/day tobacco use, has not smoked in 9 days due to illness. He is declining a nicotine patch at this time. Smoking cessation encouraged. Plan Admit to PCU. SCDs, Lovenox for VTE PPx. Conditional code: Yes to CPR/defibrillation/pressures, NO intubation/artificial airway as discussed with patient at bedside. His surrogate decision maker would be his , Sofia De La Cruz [phone] History of Present Illness Chief Complaint: fatigue, night sweats x 9 days Primary Care Provider: Trenton Dean MD Aram Pedritogloria is a 66-year-old male with past medical history significant for CAD, PAD, hypertension, dyslipidemia, alcohol use disorder, and tobacco use who is presenting today with 9 days of night sweats and fatigue. Nearly 2 weeks ago on , 04/14, patient began developing night sweats, fatigue, chills, and nausea. He has been taking NyQuil regularly for relief of symptoms, without success. He is struggling to eat much and has been only able to drink small amounts of fruit juices and water for the past 9 days, noting he has not had any alcohol, cigarettes, or formed meals for 9 days now. He has been somewhat tremulous which he attributes to both his night sweats and sudden alcohol cessation, otherwise is without any fevers, chest pain, cough, or shortness of breath but notes he just feels fatigued with any activities. He has not not vomited or had any abdominal pain, diarrhea, or constipation. He has not had any seizure-like activity, or audio, visual, or tactile hallucinations. On presentation to ED, he was 78% on room air, tachypneic with RR 3040s, borderline tachycardic and mildly hypotensive however maintaining MAP >65. Now on 6 L NC with SPO2 94%. Labs notable for WBC of 21 with left shift, sodium 131, BUN 37, creatinine 1.76, T bili 1.9, AST 100, ALT 60. Troponin 36.2. CRP and procalcitonin pending, lactate normal at 1.6. COVID-negative. CXR shows bilateral lower lung predominant airspace opacities likely representing atelectasis versus pneumonia versus aspiration. Allergies Allergy/AdvReac Type Severity Reaction Status Date / Time No Known Allergies Allergy Verified 04/25/22 14:59 Home Medications Medication Instructions Recorded Confirmed Type isosorbide mononitrate 30 mg 30 mg PO QAM #90 tabs 09/08/21 04/25/22 Rx tablet,extended release 24 hr clopidogrel 75 mg tablet (Plavix) 75 mg PO QAM #90 tabs 09/09/21 04/25/22 Rx metoprolol succinate 25 mg 25 mg PO QAM #90 tabs 09/30/21 04/25/22 Rx tablet,extended release 24 hr atorvastatin 40 mg tablet (Lipitor) 40 mg PO QAM #90 tabs 02/06/22 04/25/22 Rx fluticasone furoate 100 1 puff inhalation DAILY #1 inhaler 05/02/22 Rx mcg-vilanterol 25 mcg/dose inhalation powder (Breo Ellipta) ipratropium 0.5 mg-albuterol 3 mg 3 ml inhalation Q6R PRN 05/02/22 Rx (2.5 mg base)/3 mL nebulization cough/wheeze/shortness of breath soln #1 box levofloxacin 750 mg tablet 750 mg PO DAILY 3 days #3 tabs 05/02/22 Rx lisinopril 10 mg tablet 5 mg PO QAM #30 tabs 05/02/22 04/25/22 Rx prednisone 10 mg tablet 10 mg PO DIRECTED #20 tabs 05/02/22 Rx thiamine HCl (vitamin B1) 100 mg 200 mg PO BID 30 days #120 tabs 05/02/22 Rx tablet Past Med/Surg History Medical History Anxiety Arthritis Chronic back pain GERD (gastroesophageal reflux disease) Hearing deficit Hyperlipidemia Hypertension Myocardial infarction 03/06/2017 On anticoagulant therapy on plavix daily Shoulder pain, right Surgical History History of arthroscopy of left shoulder x2 History of cardiac cath 2016 History of esophagogastroduodenoscopy (EGD) History of fusion of cervical spine x2--normal ROM History of heart artery stent 2 stents 02/2017 @ [facility] follows with Dr. Negro History of left inguinal hernia repair History of lumbar discectomy History of right inguinal hernia repair History of surgical procedure on eye proper using laser left History of tooth extraction all teeth removed Family History Mother Family history of diabetes mellitus Family hx of colon cancer Brother Family history of esophageal cancer twin brother Other No family history of adverse response to anesthesia Social History Smoking Status: Former smoker Tobacco Type: Cigarettes Cigarettes Per Day: 20 a day; Second Hand Exposure: No; Hx Alcohol Use: Yes Alcohol type: beer Hx Substance Use: No Preferred Language: Romanian Communication Ability: Effective Production Recorder Required: No Beliefs That Will Affect Care: None Current Living Situation: Family Feels Safe at Home: Yes Seatbelt Use: always Assistive Devices: None Review of Systems Review of Systems: Constitutional: night sweats, fatigue, weakness, anorexia x9 days Eyes: No diplopia, no worsening or blurred vision ENT: normal hearing, no trouble swallowing Respiratory: chronic cough, no worsening cough, sputum, dyspnea at rest or on exertion Cardiovascular: No chest pain, tightness or palpitations Abdomen: No pain, nausea, vomiting, diarrhea or constipation : Denies dysuria, hematuria, increased urgency/frequency, urinary retention Musculoskeletal: No joint pain, calf pain, swelling Neurologic: No weakness, numbness/tingling, or balance problems Psychiatric: No anxiety or depression Skin: No rash or itch Physical Exam Physical Exam: General: awake, alert, no apparent distress, on 6 L NC Head: Normocephalic, atraumatic ENT: PERRL, EOMI, no pharyngeal exudate, mucous membranes moist Chest: Coarse breath sounds in bilateral lower lobes with increased work of breathing, no accessory muscle use, on 6 L NC Cardiac: Regular rate and rhythm, no murmur, no JVD, normal peripheral pulses, good capillary refill Abdominal: NABS x 4 quadrants, soft, nontender to palpation, no rebound, guarding or tenderness Extremities: Normal inspection, no peripheral edema or erythema, calfs nontender to palpation Psych: Normal mood and affect Neuro: AAO x 3, strength intact bilaterally and rated 5/5, no motor deficits, speech is clear, no peripheral sensory deficits Skin: no rash or erythema Results & Data Results & Data ([facility]) Vital Signs (Past 12 Hours) Vital Signs Temp Pulse Pulse Resp BP BP Pulse Ox 04/25/22 12:42 94 H 31 H 94 04/25/22 12:42 90/65 L 04/25/22 12:30 88 31 H 86 L 04/25/22 12:30 89/59 L 04/25/22 12:00 99 H 37 H 89 L 04/25/22 12:00 100/59 L 04/25/22 11:30 101 H 37 H 87 L 04/25/22 11:30 87/62 L 04/25/22 11:08 90/57 L 04/25/22 11:08 99 H 27 H 04/25/22 11:00 97 H 47 H 95 04/25/22 11:00 84/61 L 04/25/22 10:04 90 04/25/22 10:04 101 H 42 H 95/65 L 90 04/25/22 10:24 99 H 38 H 91 04/25/22 09:59 36.0 C L 101 H 40 H 125/60 78 L O2 Del Method O2 Flow Rate 04/25/22 12:42 Nasal Cannula 6 04/25/22 12:42 04/25/22 12:30 Nasal Cannula 4 04/25/22 12:30 04/25/22 12:00 Aerosol Mask 7 04/25/22 12:00 04/25/22 11:30 Aerosol Mask 7 04/25/22 11:30 04/25/22 11:08 04/25/22 11:08 04/25/22 11:00 Aerosol Mask 7 04/25/22 11:00 04/25/22 10:04 Oxymask 8 04/25/22 10:04 Oxymask 8 04/25/22 10:24 Nebulizer 7 04/25/22 09:59 Room Air Laboratory Results Abnormal lab results 04/25/22 04/25/22 04/25/22 Range/Units 10:15 10:15 10:15 WBC 21.89 H (4.8-10.8) K/ul RBC 4.11 L (4.63-6.08) M/uL MCV 101.7 H (80.0-100.0) fL MCH 37.2 H (25.0-34.0) pg MCHC 36.6 H (32.0-36.0) g/dL RDW Std Deviation 60.3 H (36.4-46.3) fL RDW Coeff of Beronica 16.0 H (11.5-14.5) % Neut # (Auto) 19.29 H (1.4-6.5) K/uL Lymph # (Auto) 1.00 L (1.2-3.4) K/uL Stearns # (Auto) 1.26 H (0.24-0.82) K/uL Immature Gran # (Auto) 0.30 H (0.00-0.02) K/uL POC Sodium (135-144) mmol/L Sodium 131 L (136-145) mmol/L POC Chloride (101-112) mmol/L Chloride 96 L (98-107) mmol/L POC Total CO2 (24-31) mmol/L Anion Gap 12 H (3-11) POC BUN (7-18) mg/dl BUN 37 H (6-23) mg/dl Creatinine 1.76 H (0.6-1.4) mg/dl POC Creatinine (0.6-1.3) mg/dl BUN/Creatinine Ratio 21.0 H (10-20) Glucose 172 H (70-99(Fasting)) mg/dl POC Glucose (other) (70-99) mg/dl POC Ioniz Calcium Marti (1.12-1.32) mmol/l Total Bilirubin 1.9 H (0.2-1.0) mg/dl AST 100 H (13-39) U/L ALT 61 H (7-52) U/L Troponin I High Sens 36.2 H (0-20) pg/ml Globulin 4.4 H (2.5-4.0) gm/dl Albumin/Globulin Ratio 0.8 L (0.9-2) Procalcitonin 0.86 H (0-0.5) ng/ml 04/25/22 Range/Units 10:16 WBC (4.8-10.8) K/ul RBC (4.63-6.08) M/uL MCV (80.0-100.0) fL MCH (25.0-34.0) pg MCHC (32.0-36.0) g/dL RDW Std Deviation (36.4-46.3) fL RDW Coeff of Beronica (11.5-14.5) % Neut # (Auto) (1.4-6.5) K/uL Lymph # (Auto) (1.2-3.4) K/uL Stearns # (Auto) (0.24-0.82) K/uL Immature Gran # (Auto) (0.00-0.02) K/uL POC Sodium 131 L (135-144) mmol/L Sodium (136-145) mmol/L POC Chloride 98 L (101-112) mmol/L Chloride (98-107) mmol/L POC Total CO2 22 L (24-31) mmol/L Anion Gap (3-11) POC BUN 35 H (7-18) mg/dl BUN (6-23) mg/dl Creatinine (0.6-1.4) mg/dl POC Creatinine 1.7 H (0.6-1.3) mg/dl BUN/Creatinine Ratio (10-20) Glucose (70-99(Fasting)) mg/dl POC Glucose (other) 172 H (70-99) mg/dl POC Ioniz Calcium Marti 1.07 L (1.12-1.32) mmol/l Total Bilirubin (0.2-1.0) mg/dl AST (13-39) U/L ALT (7-52) U/L Troponin I High Sens (0-20) pg/ml Globulin (2.5-4.0) gm/dl Albumin/Globulin Ratio (0.9-2) Procalcitonin (0-0.5) ng/ml Diagnostic Findings Chest X-Ray 04/25/22 10:04 XR chest 1V portable CLINICAL HISTORY: Dyspnea TECHNIQUE: Single frontal radiograph of the chest was obtained. Comparison: Comparison is made to chest radiograph dated 72 FINDINGS: ACDF is noted. Calcified aortic knob is seen. Airspace opacities are seen in the bilateral lower lungs, right greater than left. No evidence of pleural effusion or pneumothorax. IMPRESSION: Bilateral lower lung predominant airspace opacities which may represent atelectasis, pneumonia, and/or aspiration. ACT 112: Negative or not required by law. Electronically signed by: Jimenez Lawrence M.D. 04/25/2022 10:32 AM Code Status & VTE Plan Code Status Conditional Code-- agreeable to CPR/defibrillation/standard ACLS management but DOES NOT want artificial airway/intubation under any circumstances. Supervising Physician Co-Signing Physician Notes Patient seen and examined at bedside. During face to face encounter, I performed a physical examination and clinical history. Patient will be admitted for community acquired pneumonia. Patient will be placed on antibiotics. I discussed plan of care with [facility] Deana and patient. I reviewed above note and agree with it. PG Care Time/CCT Total # of Minutes Spent Total Time Spent with Patient: Total time spent is greater than 50% in coordination of care (as documented) at patient's floor/unit and/or counseling patient: Coding Level of Care Code 90103 INT INP/OBS CARE 3/75MIN Diagnoses Community acquired pneumonia J18.9 Acute respiratory failure J96.00 Sepsis A41.9 Acute kidney injury N17.9 Hyponatremia E87.1 CAD, multiple vessel I25.10 Ischemic cardiomyopathy I25.5 HTN (hypertension) I10 Rotator cuff tear, right M75.101 Alcohol use disorder F19.90 Tobacco abuse Z72.0
[2022-04-25] MEDS ORDERED: POLYETHYLENE (MIRALAX) 17 GM PACK PO PRN (16:35)
[2022-04-25] MEDS ORDERED: LORazepam 2 MG/1 ML VIAL IV PRN (16:35)
[2022-04-25] MEDS ORDERED: ALBUT/IPRATROP 3MG/0.5MG NEB 3 ML VIAL NEB PRN (16:35)
[2022-04-25] MEDS ORDERED: ONDANSETRON INJ 2 MG/ML 2 ML VIAL IV PRN (16:35)
[2022-04-25] MEDS ORDERED: NITROGLYCERIN SL 0.4 MG/TAB TAB SL PRN (16:35)
[2022-04-25] MEDS ORDERED: ACETAMINOPHEN 325 MG TAB PO PRN (16:35)
[2022-04-25] MEDS ORDERED: oxyCODONE/ACETAMINOPHEN 5mg/325mg TAB PO PRN (16:35)
[2022-04-25] MEDS ORDERED: ALUMINUM/MAGNESIUM SUSP 30 ML UDC PO PRN (16:35)
[2022-04-25] MEDS: ENOXAPARIN INJ 40 MG/0.4 ML SYR SQ SCH (17:55)
[2022-04-25] MEDS: FOLIC ACID 1 MG TAB PO SCH (17:55)
[2022-04-25] MEDS: THIAMINE HCL 100 MG TAB PO SCH (17:55)
[2022-04-25] MEDS: ALBUT/IPRATROP 3MG/0.5MG NEB 3 ML VIAL INH SCH ×2 (19:14→23:40)
[2022-04-25] MEDS: guaiFENesin 600 MG TABCR PO SCH (20:26)
[2022-04-26] MEDS: SODIUM CHLORIDE 0.9% 1000ML 1,000 ML IV SCH ×2 (01:37→09:26)
[2022-04-26] MEDS: ALBUT/IPRATROP 3MG/0.5MG NEB 3 ML VIAL INH SCH ×3 (05:40→19:42)
[2022-04-26 07:07] LABS: Hematocrit (blood only) 36.6 % (40.1-51.0); Hemoglobin 13.2 g/dl (14.0-18.0); Mean Corpuscular Hemoglobin 37.8 pg (25.0-34.0); Mean Corpuscular Hgb Conc 36.1 g/dL (32.0-36.0); Mean Corpuscular Volume 104.9 fL (80.0-100.0); Mean Platelet Volume 10.4 fL (9.4-12.4); Platelet Count 258 K/uL (130-400); RDW Coefficient of Variation 15.8 % (11.5-14.5); RDW Standard Deviation 60.4 fL (36.4-46.3); Red Blood Count 3.49 M/uL (4.63-6.08); White Blood Count 24.81 K/ul (4.8-10.8)
[2022-04-26 07:08] LABS: Albumin Globulin Ratio 0.8 (0.9-2); Albumin Level 3.1 gm/dl (3.4-5.0); BUN Creatinine Ratio 39.1 (10-20); Bilirubin,Total 0.8 mg/dl (0.2-1.0); C Reactive Protein 21.98 mg/dl (0-0.5); Calcium 7.8 mg/dl (8.5-10.1); Creatinine Clr Calc Pharmacy 81.3 ml/min; Est GFR (African American) 102.8 ml/min; Est GFR (Non-African American) 88.7 ml/min; Globulin 3.8 gm/dl (2.5-4.0); Potassium 4.3 mmol/L (3.5-5.1); Total Protein 6.9 gm/dl (6.0-8.3)
[2022-04-26 07:17] LABS: Acanthocytes 2+; Basophils # (auto) 0.02 K/uL (0-0.2); Basophils % (auto) 0.1 %; Echinocytes 2+; Lymphocytes # (auto) 1.12 K/uL (1.2-3.4); Lymphocytes % (auto) 4.5 %; Monocytes # (auto) 0.45 K/uL (0.24-0.82); Monocytes % (auto) 1.8 %; Neutrophils # (auto) 22.72 K/uL (1.4-6.5); Neutrophils % (auto) 91.6 %; Polychromasia 1+; Toxic Granulation 2+
[2022-04-26] MEDS: ISOSORBIDE MONO EXTENDED REL 30 MG TABCR PO SCH (08:52)
[2022-04-26] MEDS: guaiFENesin 600 MG TABCR PO SCH ×2 (08:52→21:43)
[2022-04-26] MEDS: FOLIC ACID 1 MG TAB PO SCH (08:52)
[2022-04-26] MEDS: THIAMINE HCL 100 MG TAB PO SCH (08:52)
[2022-04-26] MEDS: METOPROLOL SUCC 25MG EXT REL TAB PO SCH (08:53)
[2022-04-26] MEDS: CLOPIDOGREL BISULFATE 75 MG TAB PO SCH (08:53)
[2022-04-26] MEDS: ATORVASTATIN 40 MG TAB PO SCH (08:53)
[2022-04-26] MEDS ORDERED: predniSONE 20 MG TAB PO SCH (09:00)
[2022-04-26] MEDS: AZITHROMYCIN 500 MG in DEXTROSE 5% 250 ML IV SCH (11:31)
[2022-04-26 11:51] LABS: Influenza A virus by PCR Negative (Neg); Influenza B virus by PCR Negative (Neg); RSV by PCR Negative (Neg); SARS CoV2 RNA(COVID-19) Ceph NEGATIVE (Negative)
[2022-04-26] MEDS: cefTRIAXone SODIUM 1,000 MG in DEXTROSE 5% AD-VAN 50 ML IV SCH (13:54)
[2022-04-26] MEDS ORDERED: GABAPENTIN 600MG ALCOHOL WITHDRAWAL LOAD PO STA (14:03)
[2022-04-26] MEDS ORDERED: LORazepam 1 MG TAB PO PRN ×3 (14:03)
[2022-04-26] MEDS ORDERED: GABAPENTIN 600 MG TAB PO ONE (14:03)
[2022-04-26] MEDS ORDERED: Ativan PO Alcohol Withdrawal--Active Protocol PO PRN (14:03)
--- NOTE | 2022-04-26 14:07 | Hospitalist Progress Note ---
Date of Service April 26, 2022 Assessment & Plan (1) Community acquired pneumonia: Plan: Severe, with resulting acute hypoxic respiratory failure. CXR and CT chest with b/l pneumonia. Remains on rocephin/zithromax. Repeat COVID/flu/RSV today negative. Cont supportive care. adding steroids for likely underlying COPD exacerbation. (2) Acute respiratory failure: Plan: 2nd to #1 Likely with underlying COPD with exacerbation cont abx change prednisone to solumedrol 40mg BID cont bronchodilators add breo once daily mucolytics (3) Sepsis: Plan: 2nd to #1 follow blood cultures (4) Acute kidney injury: Plan: sepsis associated resolved creatinine back at normal stop IVF BMP am (5) Hyponatremia: Plan: 131 yesterday 133 today likely 2nd to chronic etoh use/"beer potomania" daily BMP (6) CAD, multiple vessel: Plan: Anterior STEMI 2016: SP PCI, SALBADOR to ostial LAD and circumflex. Repeat May 2018: Patent LAD stent, moderate LCx stent ISR, negative IFR mid RCA Continue metoprolol, isosorbide mononitrate; hold lisinopril due to YULISSA. Continue Plavix. Continue statin. no evidence of ACS (7) Ischemic cardiomyopathy: Plan: History of after his anterior STEMI in 2016 Exercise SPECT 05/2018: Positive for small amount of mild anterior a pical/apical ischemia (SDS 4), 7.2 METS, LVEF 56%. no clinical or radiographic evidence of decompensated CHF (8) HTN (hypertension): Plan: BPs stable today on metoprolol + imdur (9) Rotator cuff tear, right: Plan: Follows with Dr. 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 Plan Lovenox 40mg daily - DVT proph Conditional code: Yes to CPR/defibrillation/pressures, NO intubation/artificial airway as discussed with patient at bedside by admitting MD Surrogate decision- , Sofia De La Cruz [phone] Admission and Anticipated Discharge Date Admission Date: April 25, 2022 Subjective patient c/o ongoing cough dyspnea wheezing admits that he is "going through withdrawal" he was very angry when I told him he needed a few more days to get better in the hospital he said "I have an appointment on May 03!" Review of Systems Review of Systems: gen - fatigue, appetite fair cv - no chest pain pulm - dyspnea, wheezing, cough GI - no abd pain/nausea/emesis Physical Exam Physical Exam: gen - coughing, looks dyspneic, agitated mouth - MMM neck - no JVD heart - RRR s1 s2; no murmur lungs - diffuse wheezing all lung segments; crackles b/l; tachypnea abd - soft NT ND BS+ ext - no edema, pulses 2+ b/l neuro - tremors present, agitated Results & Data Results & Data ([facility]) Vital Signs (Past 12 Hours) Vital Signs Temp Pulse Pulse Resp BP BP Pulse Ox 04/26/22 13:06 72 18 94 04/26/22 08:00 04/26/22 11:11 36.3 C L 69 22 126/82 92 04/26/22 08:00 73 04/26/22 08:00 04/26/22 07:10 36.8 C 83 20 119/73 91 04/26/22 05:40 90 18 94 04/26/22 03:40 36.4 C L 22 134/78 97 Pulse Ox O2 Del Method O2 Del Method O2 Flow Rate O2 Flow Rate 04/26/22 13:06 Nasal Cannula 6 04/26/22 08:00 92 Nasal Cannula 6 04/26/22 11:11 Nasal Cannula 6 04/26/22 08:00 04/26/22 08:00 Nasal Cannula 6 04/26/22 07:10 Nasal Cannula 6 04/26/22 05:40 Nasal Cannula 6 04/26/22 03:40 Nasal Cannula 6 Laboratory Results Laboratory Results - last 24 hr 04/25/22 04/25/22 04/25/22 14:16 15:46 18:48 WBC RBC Hgb Hct MCV MCH MCHC RDW Std Deviation RDW Coeff of Beronica Plt Count MPV Immature Gran % (Auto) Neut % (Auto) Lymph % (Auto) [place] % (Auto) Eos % (Auto) Baso % (Auto) Neut # (Auto) Lymph # (Auto) [place] # (Auto) Eos # (Auto) Baso # (Auto) Immature Gran # (Auto) Toxic Granulation Polychromasia Echinocytes Acanthocytes (Spur) Sodium Potassium Chloride Carbon Dioxide Anion Gap BUN Creatinine Est Cr Clr Drug Dosing Est GFR ( Amer) Est GFR (Non-Af Amer) BUN/Creatinine Ratio Glucose Calcium Total Bilirubin AST ALT Alkaline Phosphatase Troponin I High Sens 26.0 H D 28.0 H C-Reactive Protein Total Protein Albumin Globulin Albumin/Globulin Ratio Procalcitonin Nasal Screen MRSA (PCR) Negative SARS-CoV-2 (PCR) Influenza Type A (PCR) Influenza Type B (PCR) RSV (RT-PCR) 04/26/22 04/26/22 04/26/22 00:36 06:17 06:17 WBC 24.81 H RBC 3.49 L Hgb 13.2 L Hct 36.6 L MCV 104.9 H MCH 37.8 H MCHC 36.1 H RDW Std Deviation 60.4 H RDW Coeff of Beronica 15.8 H Plt Count 258 MPV 10.4 Immature Gran % (Auto) 2.0 Neut % (Auto) 91.6 Lymph % (Auto) 4.5 [place] % (Auto) 1.8 Eos % (Auto) 0.0 Baso % (Auto) 0.1 Neut # (Auto) 22.72 H Lymph # (Auto) 1.12 L [place] # (Auto) 0.45 Eos # (Auto) 0.00 Baso # (Auto) 0.02 Immature Gran # (Auto) 0.50 H Toxic Granulation 2+ Polychromasia 1+ Echinocytes 2+ Acanthocytes (Spur) 2+ Sodium 133 L Potassium 4.3 Chloride 102 Carbon Dioxide 25 Anion Gap 6 BUN 34 H Creatinine 0.87 D Est Cr Clr Drug Dosing 81.3 Est GFR ( Amer) 102.8 Est GFR (Non-Af Amer) 88.7 BUN/Creatinine Ratio 39.1 H Glucose 161 H Calcium 7.8 L Total Bilirubin 0.8 D AST 77 H ALT 51 Alkaline Phosphatase 82 Troponin I High Sens 29.2 H C-Reactive Protein 21.98 H Total Protein 6.9 Albumin 3.1 L Globulin 3.8 Albumin/Globulin Ratio 0.8 L Procalcitonin Nasal Screen MRSA (PCR) SARS-CoV-2 (PCR) Influenza Type A (PCR) Influenza Type B (PCR) RSV (RT-PCR) 04/26/22 04/26/22 04/26/22 06:17 06:17 10:50 WBC RBC Hgb Hct MCV MCH MCHC RDW Std Deviation RDW Coeff of Beronica Plt Count MPV Immature Gran % (Auto) Neut % (Auto) Lymph % (Auto) [place] % (Auto) Eos % (Auto) Baso % (Auto) Neut # (Auto) Lymph # (Auto) [place] # (Auto) Eos # (Auto) Baso # (Auto) Immature Gran # (Auto) Toxic Granulation Polychromasia Echinocytes Acanthocytes (Spur) Sodium Potassium Chloride Carbon Dioxide Anion Gap BUN Creatinine Est Cr Clr Drug Dosing Est GFR ( Amer) Est GFR (Non-Af Amer) BUN/Creatinine Ratio Glucose Calcium Total Bilirubin AST ALT Alkaline Phosphatase Troponin I High Sens 22.3 H C-Reactive Protein Total Protein Albumin Globulin Albumin/Globulin Ratio Procalcitonin 0.48 Nasal Screen MRSA (PCR) SARS-CoV-2 (PCR) NEGATIVE Influenza Type A (PCR) Negative Influenza Type B (PCR) Negative RSV (RT-PCR) Negative Diagnostic Findings Chest CTA 04/26/22 14:01 CT ANGIOGRAM OF THE CHEST CLINICAL HISTORY: Acute respiratory failure. COMPARISON STUDY: Chest x-ray dated 04/25/2022. Chest CT dated 01/03/2019. TECHNIQUE: Following the IV administration of 113 cc of Optiray 320, CT angiogram of the chest was performed from the upper abdomen to the thoracic inlet utilizing the pulmonary embolus protocol. Images are reviewed in the axial, sagittal, and coronal planes. 3-D MIPS images are created and assessed. IV contrast was administered without complication. A dose lowering technique was utilized adhering to the principles of ALARA. The examination is significantly degraded by motion artifact. CT DOSE: 515.88 mGy.cm FINDINGS: Thyroid: Imaged portions of the thyroid gland are normal in size and attenuation. Thoracic aorta: There is atherosclerotic calcification of the thoracic aorta, which is normal in caliber and demonstrates standard 3-vessel arch anatomy. The thoracic aorta is not well opacified. Pulmonary vasculature: The main pulmonary arteries are dilated indicating pulmonary artery hypertension. There are no filling defects identified in main, lobar, or proximal segmental pulmonary branches to suggest pulmonary embolus. The segmental and subsegmental vessels are suboptimally assessed due to motion artifact. Heart: The heart is enlarged and without pericardial effusion. The coronary arteries density calcified. Lungs and pleural spaces: Evaluation of the lung parenchyma is significantly compromised by motion artifact. Mild emphysematous change is noted. The trachea and central airways appear clear. Multifocal airspace consolidation is seen throughout both lungs, right greater than left. There are scattered calcified granulomas. Trace pleural effusions are seen at both lung bases. Foci of pro bable scarring are seen throughout both lungs. Mediastinum: There are numerous mildly enlarged adjacent lymph nodes. AP window nodes measure up to 14 mm in short axis. A precarinal node measures 11 mm in short axis. Calcified mediastinal nodes are similar to previous. Kaitlynn: Enlarged hilar nodes measure up to 14 mm in short axis. Axillae: There is no axillary lymphadenopathy. Upper abdomen: A 6 cm simple cyst is partially visualized arising from the upper pole of the right kidney. A small hiatal hernia is noted. Skeletal structures: The skeletal structures are osteopenic. There is a chronic compression deformity of T12. Fusion hardware is seen in the lower cervical spine. No lytic or blastic lesion is seen. IMPRESSION: 1. There is no evidence of central pulmonary embolus in the main, lobar, or proximal segmental pulmonary arteries. The segmental and subsegmental branches are suboptimally assessed due to significant motion artifact. 2. Cardiomegaly and mild emphysema. 3. Multifocal airspace consolidation is seen throughout both lungs and is typical in appearance for pneumonia. Radiographic follow-up to resolution is recommended. A follow-up chest CT in several months time is recommended to document complete resolution and to evaluate the underlying lung parenchyma. 4. Trace pleural effusions. 5. Mildly enlarged mediastinal and hilar lymph nodes are likely reactive. 6. Additional findings as above. ACT 112: Negative or not required by law. Electronically signed by: Gilberto Castañeda M.D. 04/26/2022 4:01 PM PG Care Time/CCT Total # of Minutes Spent Total Time Spent with Patient: Total time spent is greater than 50% in coordination of care (as documented) at patient's floor/unit and/or counseling patient: Coding Level of Care Code 93681 SUB INP/OBS CARE 3/50MIN Diagnoses Community acquired pneumonia J18.9 Acute respiratory failure J96.00 Sepsis A41.9 Acute kidney injury N17.9 Hyponatremia E87.1 CAD, multiple vessel I25.10 Ischemic cardiomyopathy I25.5 HTN (hypertension) I10 Rotator cuff tear, right M75.101 Alcohol use disorder F19.90 Tobacco abuse Z72.0
[2022-04-26] MEDS: FLUTICASONE/VILANTEROL 100/25MCG 14 PUFFS/INHALER INH SCH (14:39)
[2022-04-26] MEDS ORDERED: OPTIRAY 350 100ml IV ONE (15:17)
--- NOTE | 2022-04-26 16:03 | CT Scan Report ---
CT ANGIOGRAM OF THE CHEST CLINICAL HISTORY: Acute respiratory failure. COMPARISON STUDY: Chest x-ray dated 04/25/2022. Chest CT dated 01/03/2019. TECHNIQUE: Following the IV administration of 113 cc of Optiray 320, CT angiogram of the chest was pe rformed from the upper abdomen to the thoracic inlet utilizing the pulmonary embolus protocol. Images are reviewed in the axial, sagittal, and coronal planes. 3-D MIPS images are created and assessed. I V contrast was administered without complication. A dose lowering technique was utilized adhering to the principles of ALARA. The examination is significantly degraded by motion artifact. CT DOSE: 515.88 mGy.cm FINDINGS: Thyroid: Imaged portions of the thyroid gland are normal in size and attenuation. Thoracic aorta: There is atherosclerotic calcification of the thoracic aorta, which is normal in jimy eric and demonstrates standard 3-vessel arch anatomy. The thoracic aorta is not well opacified. Pulmonary vasculature: The main pulmonary arteries are dilated indicating pulmonary artery hypertensi on. There are no filling defects identified in main, lobar, or proximal segmental pulmonary branches to suggest pulmonary embolus. The segmental and subsegmental vessels are suboptimally assessed due to motion artifact. Heart: The heart is enlarged and without pericardial effusion. The coronary arteries density calcifie d. Lungs and pleural spaces: Evaluation of the lung parenchyma is significantly compromised by motion ar tifact. Mild emphysematous change is noted. The trachea and central airways appear clear. Multifocal airspace consolidation is seen throughout both lungs, right greater than left. There are scattered ca lcified granulomas. Trace pleural effusions are seen at both lung bases. Foci of probable scarring ar e seen throughout both lungs. Mediastinum: There are numerous mildly enlarged adjacent lymph nodes. AP window nodes measure up to 1 4 mm in short axis. A precarinal node measures 11 mm in short axis. Calcified mediastinal nodes are s imilar to previous. Kaitlynn: Enlarged hilar nodes measure up to 14 mm in short axis. Axillae: There is no axillary lymphadenopathy. Upper abdomen: A 6 cm simple cyst is partially visualized arising from the upper pole of the right ki dney. A small hiatal hernia is noted. Skeletal structures: The skeletal structures are osteopenic. There is a chronic compression deformity of T12. Fusion hardware is seen in the lower cervical spine. No lytic or blastic lesion is seen. IMPRESSION: 1. There is no evidence of central pulmonary embolus in the main, lobar, or proximal segmental pulmon yary arteries. The segmental and subsegmental branches are suboptimally assessed due to significant mo tion artifact. 2. Cardiomegaly and mild emphysema. 3. Multifocal airspace consolidation is seen throughout both lungs and is typical in appearance for p neumonia. Radiographic follow-up to resolution is recommended. A follow-up chest CT in several months time is recommended to document complete resolution and to evaluate the underlying lung parenchyma. 4. Trace pleural effusions. 5. Mildly enlarged mediastinal and hilar lymph nodes are likely reactive. 6. Additional findings as above. ACT 112: Negative or not required by law. Electronically signed by: Gilberto Castañeda M.D. 04/26/2022 4:01 PM
[2022-04-26] MEDS: ENOXAPARIN INJ 40 MG/0.4 ML SYR SQ SCH (17:17)
[2022-04-26] MEDS: GABAPENTIN 100 MG CAP PO SCH (21:43)
[2022-04-26] MEDS: methylPREDNISolone 40 MG in SYRINGE 0 ML IV SCH (21:43)
[2022-04-27] MEDS: ALBUT/IPRATROP 3MG/0.5MG NEB 3 ML VIAL INH SCH ×4 (00:37→19:33)
[2022-04-27] MEDS ORDERED: methylPREDNISolone 60 MG in SYRINGE 0 ML IV ONE (01:00)
[2022-04-27 02:48] LABS: Appearance Urine Clear (Clear); Bilirubin Urine Negative (Negative); Blood Urine Negative (Negative); Color Urine Yellow; Glucose Urine UA Negative (Negative); Ketones Urine Negative (Negative); Leukocyte Esterase Urine Negative (Negative); Nitrite Urine Negative (Negative); Protein Urine Negative (Negative); Urobilinogen Urine Positive (Negative); pH Urine 5.5 (4.5-7.5)
[2022-04-27] MEDS: GABAPENTIN 100 MG CAP PO SCH (05:27)
[2022-04-27] MEDS: THIAMINE HCL 100 MG TAB PO SCH (08:52)
[2022-04-27] MEDS: ISOSORBIDE MONO EXTENDED REL 30 MG TABCR PO SCH (08:52)
[2022-04-27] MEDS: methylPREDNISolone 40 MG in SYRINGE 0 ML IV SCH ×2 (08:52→19:42)
[2022-04-27] MEDS: METOPROLOL SUCC 25MG EXT REL TAB PO SCH (08:52)
[2022-04-27] MEDS: CLOPIDOGREL BISULFATE 75 MG TAB PO SCH (08:52)
[2022-04-27] MEDS: guaiFENesin 600 MG TABCR PO SCH ×2 (08:52→19:42)
[2022-04-27] MEDS: FOLIC ACID 1 MG TAB PO SCH (08:52)
[2022-04-27] MEDS: FLUTICASONE/VILANTEROL 100/25MCG 14 PUFFS/INHALER INH SCH (08:52)
[2022-04-27] MEDS: ATORVASTATIN 40 MG TAB PO SCH (08:52)
[2022-04-27] MEDS: cefTRIAXone SODIUM 1,000 MG in DEXTROSE 5% AD-VAN 50 ML IV SCH (10:14)
[2022-04-27] MEDS: AZITHROMYCIN 500 MG in DEXTROSE 5% 250 ML IV SCH (10:41)
[2022-04-27 10:54] LABS: Hematocrit (blood only) 33.3 % (40.1-51.0); Hemoglobin 11.9 g/dl (14.0-18.0); Mean Corpuscular Hemoglobin 37.5 pg (25.0-34.0); Mean Corpuscular Hgb Conc 35.7 g/dL (32.0-36.0); Mean Platelet Volume 10.3 fL (9.4-12.4); Platelet Count 262 K/uL (130-400); RDW Coefficient of Variation 16.5 % (11.5-14.5); RDW Standard Deviation 64.5 fL (36.4-46.3); Red Blood Count 3.17 M/uL (4.63-6.08); White Blood Count 19.74 K/ul (4.8-10.8)
[2022-04-27 11:16] LABS: BUN Creatinine Ratio 32.9 (10-20); Creatinine Clr Calc Pharmacy 96.8 ml/min; Est GFR (African American) 110.5 ml/min; Est GFR (Non-African American) 95.3 ml/min; Potassium 4.4 mmol/L (3.5-5.1)
[2022-04-27 11:32] LABS: Thyroid Stimulating Hormone 0.125 uIu/ml (0.300-4.500)
[2022-04-27 12:04] LABS: T4 Free Thyroxine 1.51 ng/dl (0.61-1.60)
[2022-04-27] MEDS ORDERED: GABAPENTIN 600 MG TAB PO SCH (14:30)
[2022-04-27] MEDS: ENOXAPARIN INJ 40 MG/0.4 ML SYR SQ SCH (17:41)
--- NOTE | 2022-04-27 20:16 | Hospitalist Progress Note ---
Date of Service April 27, 2022 Assessment & Plan (1) Community acquired pneumonia: Plan: Severe, with resulting acute hypoxic respiratory failure. CXR and CT chest with b/l pneumonia. Remains on rocephin/zithromax. Day #2 of each. Plan 7 days total of IV/PO abx. Send sputum cx. Blood cultures negative. Repeat COVID/flu/RSV negative. Cont supportive care. (2) Acute respiratory failure: Plan: 2nd to #1 Likely with underlying COPD with exacerbation as well ongoing O2 requirement - slightly better than yesterday cont abx cont solumedrol 40mg BID - no change today cont bronchodilators cont breo once daily add saline nebs BID (3) Sepsis: Plan: 2nd to #1 follow blood cultures but thus far negative (4) Acute kidney injury: Plan: sepsis associated resolved creatinine back at normal BMP am (5) Hyponatremia: Plan: stable likely 2nd to chronic etoh use/"beer potomania" daily BMP (6) CAD, multiple vessel: Plan: Anterior STEMI 2016: SP PCI, SALBADOR to ostial LAD and circumflex. Repeat May 2018: Patent LAD stent, moderate LCx stent ISR, negative IFR mid RCA Continue metoprolol, isosorbide mononitrate; hold lisinopril due to YULISSA. Continue Plavix. Continue statin. no evidence of ACS (7) Ischemic cardiomyopathy: Plan: History of after his anterior STEMI in 2016 Exercise SPECT 05/2018: Positive for small amount of mild anterior apical/apical ischemia (SDS 4), 7.2 METS, LVEF 56%. no clinical or radiographic evidence of decompensated CHF stopped IVF (8) HTN (hypertension): Plan: BPs acceptable on metoprolol + imdur (9) Rotator cuff tear, right: Plan: Follows with Dr. 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 Plan Lovenox 40mg daily - DVT proph Conditional code: Yes to CPR/defibrillation/pressures, NO intubation/artificial airway as discussed with patient at bedside by admitting MD Surrogate decision- , Sofia De La Cruz [phone] will need PT/OT Admission and Anticipated Discharge Date Admission Date: April 25, 2022 Subjective patient feels similar to yesterday except "maybe not as shaky" cough continues with sputum production no dyspnea at rest; ongoing GOMEZ ongoing wheezing eating better tele overnight NSR Review of Systems Review of Systems: gen - no fevers or chills cv - no chest pain pulm - no hemoptysis GI - no nausea/vomiting Physical Exam Physical Exam: gen - coughing, looks a little better than yesterday mouth - MMM neck - no JVD heart - RRR s1 s2; no murmur lungs - diffuse wheezing all lung segments - no changes; rhonchi; scattered crackles b/l; tachypnea a little better today abd - soft NT ND BS+ ext - no edema, pulses 2+ b/l neuro - tremors a bit better today psych - a/o x 3 Results & Data Results & Data ([facility]) Vital Signs (Past 12 Hours) Vital Signs Temp Pulse Pulse Resp BP Pulse Ox O2 Del Method 04/27/22 20:13 Nasal Cannula 04/27/22 19:38 36.5 C 68 18 153/83 H 95 Nasal Cannula 04/27/22 17:00 36.7 C 87 18 118/63 97 Room Air 04/27/22 16:05 74 04/27/22 12:17 76 91 Nasal Cannula 04/27/22 08:45 Nasal Cannula O2 Flow Rate 04/27/22 20:13 4 04/27/22 19:38 6 04/27/22 17:00 04/27/22 16:05 04/27/22 12:17 4 04/27/22 08:45 4 Laboratory Results Laboratory Results - last 24 hr 04/27/22 04/27/22 04/27/22 00:30 10:41 10:41 WBC 19.74 H RBC 3.17 L Hgb 11.9 L Hct 33.3 L MCV 105.0 H MCH 37.5 H MCHC 35.7 RDW Std Deviation 64.5 H RDW Coeff of Beronica 16.5 H Plt Count 262 MPV 10.3 Sodium 133 L Potassium 4.4 Chloride 101 Carbon Dioxide 27 Anion Gap 5 BUN 24 H Creatinine 0.73 Est Cr Clr Drug Dosing 96.8 Est GFR ( Amer) 110.5 Est GFR (Non-Af Amer) 95.3 BUN/Creatinine Ratio 32.9 H Glucose 256 H Calcium 8.0 L Vitamin B12 Folate TSH Free T4 Urine Color Yellow Urine Appearance Clear Urine pH 5.5 Ur Specific [place] 1.040 H Urine Protein Negative Urine Glucose (UA) Negative Urine Ketones Negative Urine Blood Negative Urine Nitrite Negative Urine Bilirubin Negative Urine Urobilinogen Positive H Ur Leukocyte Esterase Negative 04/27/22 04/27/22 10:41 10:41 WBC RBC Hgb Hct MCV MCH MCHC RDW Std Deviation RDW Coeff of Beronica Plt Count MPV Sodium Potassium Chloride Carbon Dioxide Anion Gap BUN Creatinine Est Cr Clr Drug Dosing Est GFR ( Amer) Est GFR (Non-Af Amer) BUN/Creatinine Ratio Glucose Calcium Vitamin B12 953 H Folate 16.85 TSH 0.125 L Free T4 1.51 Urine Color Urine Appearance Urine pH Ur Specific [place] Urine Protein Urine Glucose (UA) Urine Ketones Urine Blood Urine Nitrite Urine Bilirubin Urine Urobilinogen Ur Leukocyte Esterase Diagnostic Findings blood cx's negative PG Care Time/CCT Total # of Minutes Spent Total Time Spent with Patient: Total time spent is greater than 50% in coordination of care (as documented) at patient's floor/unit and/or counseling patient: Coding Level of Care Code 93482 SUB INP/OBS CARE 2/35MIN Diagnoses Community acquired pneumonia J18.9 Acute respiratory failure J96.00 Sepsis A41.9 Acute kidney injury N17.9 Hyponatremia E87.1 CAD, multiple vessel I25.10 Ischemic cardiomyopathy I25.5 HTN (hypertension) I10 Rotator cuff tear, right M75.101 Alcohol use disorder F19.90 Tobacco abuse Z72.0
[2022-04-27] MEDS: SODIUM CHLOR 7% 4 ML NEB NEB SCH (20:33)
[2022-04-28] MEDS: ALBUT/IPRATROP 3MG/0.5MG NEB 3 ML VIAL INH SCH ×4 (00:38→19:20)
[2022-04-28] MEDS: SODIUM CHLOR 7% 4 ML NEB NEB SCH ×2 (07:24→19:21)
[2022-04-28] MEDS: FOLIC ACID 1 MG TAB PO SCH (09:52)
[2022-04-28] MEDS: THIAMINE HCL 100 MG TAB PO SCH (09:52)
[2022-04-28] MEDS: guaiFENesin 600 MG TABCR PO SCH ×2 (09:52→21:44)
[2022-04-28] MEDS: ATORVASTATIN 40 MG TAB PO SCH (09:52)
[2022-04-28] MEDS: METOPROLOL SUCC 25MG EXT REL TAB PO SCH (09:52)
[2022-04-28] MEDS: ISOSORBIDE MONO EXTENDED REL 30 MG TABCR PO SCH (09:52)
[2022-04-28] MEDS: CLOPIDOGREL BISULFATE 75 MG TAB PO SCH (09:52)
[2022-04-28] MEDS: methylPREDNISolone 40 MG in SYRINGE 0 ML IV SCH ×2 (09:53→21:44)
[2022-04-28] MEDS: FLUTICASONE/VILANTEROL 100/25MCG 14 PUFFS/INHALER INH SCH (09:53)
[2022-04-28] MEDS: AZITHROMYCIN 500 MG in DEXTROSE 5% 250 ML IV SCH (10:02)
[2022-04-28 10:39] LABS: Estimated Average Glucose 131 mg/dl; Hemoglobin A1C 6.2 % (4.5-5.6)
[2022-04-28] MEDS: cefTRIAXone SODIUM 1,000 MG in DEXTROSE 5% AD-VAN 50 ML IV SCH (11:45)
[2022-04-28] MEDS ORDERED: GABAPENTIN 400 MG CAP PO SCH (14:30)
[2022-04-28] MEDS: ENOXAPARIN INJ 40 MG/0.4 ML SYR SQ SCH (17:19)
--- NOTE | 2022-04-28 21:34 | Hospitalist Progress Note ---
Date of Service April 28, 2022 Assessment & Plan (1) Community acquired pneumonia: Plan: Severe, with resulting acute hypoxic respiratory failure. CXR and CT chest with b/l pneumonia. Remains on rocephin/zithromax. Day #3 of each. Plan 7 days total of IV/PO abx. Sputum cx pending. Blood cultures negative to date. Repeat COVID/flu/RSV negative. Cont supportive care. (2) Acute respiratory failure: Plan: ACUTE HYPOXIC RESPIRATORY FAILURE 2nd to #1, and likely has COPD exacerbation as well ongoing O2 requirement - slightly better than yesterday - now down to 3 L NC O2 cont abx for pneumonia; f/u on sputum cx cont solumedrol 40mg BID - no change today cont bronchodilators cont breo once daily cont saline nebs BID cont mucinex BID (3) Sepsis: Plan: 2nd to #1 resolved blood cx's negative (4) Acute kidney injury: Plan: sepsis associated resolved creatinine now normal repeat BMP am (5) Hyponatremia: Plan: stable likely 2nd to chronic etoh use/"beer potomania" AM BMP for stability (6) CAD, multiple vessel: Plan: Anterior STEMI 2016: SP PCI, SALBADOR to ostial LAD and circumflex. Repeat May 2018: Patent LAD stent, moderate LCx stent ISR, negative IFR mid RCA Continue metoprolol, isosorbide mononitrate; hold lisinopril due to YULISSA. Continue Plavix. Continue statin. no evidence of ACS (7) Ischemic cardiomyopathy: Plan: History of after his anterior STEMI in 2016 Exercise SPECT 05/2018: Positive for small amount of mild anterior apical/apical ischemia (SDS 4), 7.2 METS, LVEF 56%. no clinical or radiographic evidence of decompensated CHF (8) HTN (hypertension): Plan: BPs mildly high today on metoprolol + imdur if still high tomorrow consider titration etoh withdrawal likely contributing to high BPs as well (9) Rotator cuff tear, right: Plan: Follows with Dr. 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 Plan Lovenox 40mg daily - DVT proph Conditional code: Yes to CPR/defibrillation/pressures, NO intubation/artificial airway as discussed with patient at bedside by admitting MD Surrogate decision- , Sofia De La Cruz [phone] will need PT/OT Admission and Anticipated Discharge Date Admission Date: April 25, 2022 Subjective patient receiving a neb during my visit coughing up copious amounts of purulent sputum still with dyspnea and dyspnea on exertion along with wheezing still with shakes but feels they are mild and he denies needing more medication for this no fevers eating 100% of meals tele overnight wnl down to 3 L NC O2 Review of Systems Review of Systems: gen - no fevers cv - no chest pain pulm - no hemoptysis GI - no diarrhea; normal BMs Physical Exam Physical Exam: gen - significant coughing, copious sputum (spitting into the trash can); shaky mouth - MMM neck - no JVD heart - RRR s1 s2; no murmur lungs - diffuse wheezing all lung segments - scant improvement if any; airation, however, is improved; rhonchi anteriorly/upper lobes; scattered crackles b/l; ta chypnea still present abd - soft NT ND BS+ ext - no edema, pulses 2+ b/l neuro - tremors same as yesterday psych - a/o x 3; no DTs Results & Data Results & Data ([facility]) Vital Signs (Past 12 Hours) Vital Signs Temp Pulse Pulse Resp BP Pulse Ox Pulse Ox 04/28/22 19:44 36.7 C 72 20 153/81 H 95 04/28/22 19:21 64 89 L 04/28/22 16:25 68 04/28/22 16:00 89 L 04/28/22 16:00 89 L 04/28/22 15:41 36.4 C L 81 20 149/72 H 89 L 04/28/22 13:02 56 L 18 94 04/28/22 11:54 36.3 C L 61 18 144/81 H 95 O2 Del Method O2 Del Method O2 Flow Rate O2 Flow Rate 04/28/22 19:44 Nasal Cannula 3 04/28/22 19:21 Nasal Cannula 3 04/28/22 16:25 04/28/22 16:00 Nasal Cannula 3 04/28/22 16:00 Nasal Cannula 3 04/28/22 15:41 Nasal Cannula 3 04/28/22 13:02 Nasal Cannula 4 04/28/22 11:54 Nasal Cannula Laboratory Results Laboratory Results - last 24 hr 04/27/22 04/28/22 04/28/22 10:41 07:25 11:18 POC Glucose 140 H 162 H Estimat Average Glucose 131 Hemoglobin A1c 6.2 H 04/28/22 04/28/22 16:31 20:12 POC Glucose 172 H 228 H Estimat Average Glucose Hemoglobin A1c Diagnostic Findings blood cx's negative sputum cx pending PG Care Time/CCT Total # of Minutes Spent Total Time Spent with Patient: Total time spent is greater than 50% in coordination of care (as documented) at patient's floor/unit and/or counseling patient: Coding Level of Care Code 22993 SUB INP/OBS CARE 2/35MIN Diagnoses Community acquired pneumonia J18.9 Acute respiratory failure J96.00 Sepsis A41.9 Acute kidney injury N17.9 Hyponatremia E87.1 CAD, multiple vessel I25.10 Ischemic cardiomyopathy I25.5 HTN (hypertension) I10 Rotator cuff tear, right M75.101 Alcohol use disorder F19.90 Tobacco abuse Z72.0
[2022-04-28] MEDS: LANTUS PER UNIT CHARGE SQ SCH (21:40)
[2022-04-29] MEDS: ALBUT/IPRATROP 3MG/0.5MG NEB 3 ML VIAL INH SCH ×4 (00:25→20:21)
[2022-04-29 07:13] LABS: Hematocrit (blood only) 36.7 % (40.1-51.0); Hemoglobin 13.3 g/dl (14.0-18.0); Mean Corpuscular Hgb Conc 36.2 g/dL (32.0-36.0); Mean Corpuscular Volume 102.2 fL (80.0-100.0); Platelet Count 289 K/uL (130-400); RDW Coefficient of Variation 16.1 % (11.5-14.5); RDW Standard Deviation 59.8 fL (36.4-46.3); Red Blood Count 3.59 M/uL (4.63-6.08); White Blood Count 15.64 K/ul (4.8-10.8)
[2022-04-29 07:47] LABS: BUN Creatinine Ratio 31.8 (10-20); Calcium 8.2 mg/dl (8.5-10.1); Creatinine Clr Calc Pharmacy 107.1 ml/min; Est GFR (African American) 115.1 ml/min; Est GFR (Non-African American) 99.3 ml/min; Magnesium 1.8 mg/dl (1.7-2.4); Potassium 4.3 mmol/L (3.5-5.1)
[2022-04-29] MEDS: SODIUM CHLOR 7% 4 ML NEB NEB SCH ×2 (08:05→20:21)
[2022-04-29] MEDS ORDERED: AZITHROMYCIN 250 MG TAB PO SCH (09:00)
--- NOTE | 2022-04-29 09:09 | XRay Report ---
XR chest 1V portable CLINICAL HISTORY: Pneumonia. COMPARISON STUDY: Chest radiograph April 25, [address] April 26, 2022. FINDINGS: There is no pneumothorax or pleural effusion. Mild bilateral hilar enlargement is unchanged . Cardiomediastinal silhouette is stable. There is no evidence for pulmonary edema. Reticulonodular i nterstitial thickening is again noted. Patchy opacities have slightly improved. IMPRESSION: Findings suggestive of slight improvement in multifocal pneumonia. Continued radiographi c follow-up to ensure resolution is recommended. ACT 112: Negative or not required by law. Electronically signed by: Juve Patel M.D. 04/29/2022 9:07 AM
[2022-04-29] MEDS: CLOPIDOGREL BISULFATE 75 MG TAB PO SCH (09:16)
[2022-04-29] MEDS: FLUTICASONE/VILANTEROL 100/25MCG 14 PUFFS/INHALER INH SCH (09:16)
[2022-04-29] MEDS: ATORVASTATIN 40 MG TAB PO SCH (09:16)
[2022-04-29] MEDS: CEFEPIME 1,000 MG in SYRINGE 0 ML IV SCH ×2 (09:16→22:18)
[2022-04-29] MEDS: FOLIC ACID 1 MG TAB PO SCH (09:17)
[2022-04-29] MEDS: guaiFENesin 600 MG TABCR PO SCH ×2 (09:17→22:06)
[2022-04-29] MEDS: ISOSORBIDE MONO EXTENDED REL 30 MG TABCR PO SCH (09:17)
[2022-04-29] MEDS: METOPROLOL SUCC 25MG EXT REL TAB PO SCH (09:18)
[2022-04-29] MEDS: methylPREDNISolone 40 MG in SYRINGE 0 ML IV SCH ×2 (09:18→22:07)
[2022-04-29] MEDS: THIAMINE HCL 100 MG TAB PO SCH (09:18)
--- NOTE | 2022-04-29 14:16 | Hospitalist Progress Note ---
Date of Service April 29, 2022 Assessment & Plan (1) Community acquired pneumonia: Plan: Gram-negative's isolated. Considering his history of alcoholism, this could be Klebsiella. Antibiotics switched to cefepime, day 1. Await final identification of pathogen and adjust antibiotics accordingly. Chest x-ray obtained today, April 29, looks a little better. Will obtain chest x-rays every 2 days while hospitalized. He will need outpatient chest x-ray until pne umonia has completely cleared. Blood cultures negative. Repeat COVID/flu/RSV negative. (2) Acute respiratory failure: Plan: ACUTE HYPOXIC RESPIRATORY FAILURE. Due to pneumonia and suspected exacerbation of COPD. Treat underlying pneumonia and wean oxygen off as tolerated. Serial chest x-rays until clear. (3) Sepsis: Plan: Present on admission. Now resolved. Blood cx's negative (4) Acute kidney injury: Plan: sepsis associated. Resolved with IV fluids. Monitor intake and output. Serial labs (5) Hyponatremia: Plan: stable. Mild. Likely 2nd to chronic etoh use/"beer potomania". Serial labs (6) CAD, multiple vessel: Plan: History of Anterior STEMI 2016: SP PCI, SALBADOR to ostial LAD and circumflex. Stable. Medical management (7) Ischemic cardiomyopathy: Plan: History of after his anterior STEMI in 2016. Currently stable. Medical management (8) HTN (hypertension): Plan: Treated with metoprolol and Imdur. Blood pressure is acceptable (9) Rotator cuff tear, right: Plan: Follows with Dr. Lopez with orthopedic surgery. Planned reverse shoulder replacement later this year (10) Alcohol use disorder: Plan: Patient regularly drinks beer daily. Cont AWSS protocol with gabapentin + symptom/score triggered ativan prn . Telemetry . (11) Tobacco abuse: Plan: Longstanding history of 1 pack/day tobacco use. Counselled to quit Plan Lovenox 40mg daily - DVT proph Disposition: Hopeful discharge to home later this week. Admission and Anticipated Discharge Date Admission Date: April 25, 2022 Subjective Alert and oriented. No new problems. He feels his respiratory status has improved. Portable chest x-ray obtained today, April 29, appears better. Gram-negative rods isolated in the sputum. Antibiotics switched to intravenous cefepime, day 1. Considering his alcoholism history, this could be Klebsiella. He is also on intravenous Solu-Medrol. He continues to require oxygen per nasal cannula. White blood cell count is trending down Review of Systems Review of Systems: Constitutional-no fever or chills ENT-no blurred vision, no double vision, no epistaxis, no sore throat Respiratory-productive cough. No wheezing. No hemoptysis Cardiac-no palpitations, no chest pain, no syncope GI-no nausea, vomiting, diarrhea, melena, hematochezia -no urinary retention, no urinary incontinence, no dysuria, no hematuria Musculoskeletal-no joint pain, no muscle tenderness Skin-no bruising, no rashes, no pruritus Neuro-no isolated weakness, no paresthesia, no weakness Psych-no depression, no anxiety Physical Exam Physical Exam: General-alert and oriented x3, no fevers, no chills HEENT-head atraumatic and normocephalic, pupils equal and reactive to light, extraocular muscles intact Neck-no lymphadenopathy or thyromegaly, trachea midline Chest-scattered bilateral rhonchi. No wheezing Cardiac-regular rate and rhythm, normal S1 and S2 Abdomen-normal bowel sounds, nontender, no hepatosplenomegaly Extremities-no cyanosis, clubbing, or edema Neuro-cranial nerves II through XII intact, motor and sensory function within normal limits, strength symmetrical , no focal deficits Psych-normal affect, normal mood Results & Data Results & Data ([facility]) Vital Signs (Past 12 Hours) Vital Signs Temp Pulse Pulse Resp BP BP Pulse Ox 04/29/22 12:53 66 20 94 04/29/22 12:28 91 04/29/22 12:21 36.4 C L 70 20 145/83 H 93 04/29/22 07:00 66 04/29/22 08:00 04/29/22 11:22 04/29/22 08:05 88 22 89 L 04/29/22 08:02 36.3 C L 58 L 19 161/88 H 92 04/29/22 07:34 04/29/22 05:08 61 20 92 04/29/22 02:58 36.4 C L 64 20 149/84 H 92 Pulse Ox Pulse Ox Pulse Ox Pulse Ox O2 Del Method O2 Del Method O2 Flow Rate 04/29/22 12:53 Nasal Cannula 2 04/29/22 12:28 04/29/22 12:21 Nasal Cannula 3 04/29/22 07:00 04/29/22 08:00 92 Nasal Cannula 04/29/22 11:22 90 88 L 90 04/29/22 08:05 Nasal Cannula 2.5 04/29/22 08:02 Nasal Cannula 3 04/29/22 07:34 Nasal Cannula 2 04/29/22 05:08 Nasal Cannula 2 04/29/22 02:58 Nasal Cannula 3 O2 Flow Rate O2 Flow Rate O2 Flow Rate O2 Flow Rate 04/29/22 12:53 04/29/22 12:28 04/29/22 12:21 04/29/22 07:00 04/29/22 08:00 3 04/29/22 11:22 2.5 2.5 2.5 04/29/22 08:05 04/29/22 08:02 04/29/22 07:34 04/29/22 05:08 04/29/22 02:58 Laboratory Results 04/29/22 06:21 04/29/22 06:21 PG Care Time/CCT Total # of Minutes Spent Total Time Spent with Patient: Total time spent is greater than 50% in coordination of care (as documented) at patient's floor/unit and/or counseling patient: Coding Level of Care Code 22626 SUB INP/OBS CARE 3/50MIN Diagnoses Community acquired pneumonia J18.9 Acute respiratory failure J96.00 Sepsis A41.9 Acute kidney injury N17.9 Hyponatremia E87.1 CAD, multiple vessel I25.10 Ischemic cardiomyopathy I25.5 HTN (hypertension) I10 Rotator cuff tear, right M75.101 Alcohol use disorder F19.90 Tobacco abuse Z72.0
[2022-04-29] MEDS ORDERED: GABAPENTIN 100 MG CAP PO SCH (14:30)
[2022-04-29] MEDS: ENOXAPARIN INJ 40 MG/0.4 ML SYR SQ SCH (18:15)
[2022-04-29] MEDS: INSULIN ASPART PER UNIT SC SCH (22:05)
[2022-04-29] MEDS: LANTUS PER UNIT CHARGE SQ SCH (22:05)
[2022-04-30] MEDS: ALBUT/IPRATROP 3MG/0.5MG NEB 3 ML VIAL INH SCH ×4 (00:12→19:36)
[2022-04-30] MEDS: SODIUM CHLOR 7% 4 ML NEB NEB SCH ×2 (07:15→19:36)
[2022-04-30] MEDS: INSULIN ASPART PER UNIT SC SCH ×4 (08:26→21:32)
[2022-04-30] MEDS: methylPREDNISolone 40 MG in SYRINGE 0 ML IV SCH ×2 (08:35→21:33)
[2022-04-30] MEDS: CEFEPIME 1,000 MG in SYRINGE 0 ML IV SCH ×2 (08:35→21:32)
[2022-04-30] MEDS: FLUTICASONE/VILANTEROL 100/25MCG 14 PUFFS/INHALER INH SCH (08:36)
[2022-04-30] MEDS: CLOPIDOGREL BISULFATE 75 MG TAB PO SCH (08:36)
[2022-04-30] MEDS: ATORVASTATIN 40 MG TAB PO SCH (08:36)
[2022-04-30] MEDS: METOPROLOL SUCC 25MG EXT REL TAB PO SCH (08:36)
[2022-04-30] MEDS: THIAMINE HCL 100 MG TAB PO SCH (08:36)
[2022-04-30] MEDS: FOLIC ACID 1 MG TAB PO SCH (08:36)
[2022-04-30] MEDS: guaiFENesin 600 MG TABCR PO SCH ×2 (08:37→21:32)
[2022-04-30] MEDS: ISOSORBIDE MONO EXTENDED REL 30 MG TABCR PO SCH (08:37)
[2022-04-30] MEDS: ENOXAPARIN INJ 40 MG/0.4 ML SYR SQ SCH (17:45)
[2022-04-30] MEDS: LANTUS PER UNIT CHARGE SQ SCH (21:32)
--- NOTE | 2022-04-30 23:10 | Hospitalist Progress Note ---
Date of Service April 30, 2022 Assessment & Plan (1) Community acquired pneumonia: Plan: Gram-negative's isolated. Considering his history of alcoholism, this could be Klebsiella. Antibiotics switched to cefepime, day 1. Await final identification of pathogen and adjust antibiotics accordingly. Chest x-ray obtained today, April 29, looks a little better. Will obtain chest x-rays every 2 days while hospitalized. He will need outpatient chest x-ray until pne umonia has completely cleared. Blood cultures negative. Repeat COVID/flu/RSV negative. (2) Acute respiratory failure: Plan: ACUTE HYPOXIC RESPIRATORY FAILURE. Due to pneumonia and suspected exacerbation of COPD. Treat underlying pneumonia and wean oxygen off as tolerated. Serial chest x-rays until clear. (3) Sepsis: Plan: Present on admission. Now resolved. Blood cx's negative (4) Acute kidney injury: Plan: sepsis associated. Resolved with IV fluids. Monitor intake and output. Serial labs (5) Hyponatremia: Plan: stable. Mild. Likely 2nd to chronic etoh use/"beer potomania". Serial labs (6) CAD, multiple vessel: Plan: History of Anterior STEMI 2016: SP PCI, SALBADOR to ostial LAD and circumflex. Stable. Medical management (7) Ischemic cardiomyopathy: Plan: History of after his anterior STEMI in 2016. Currently stable. Medical management (8) HTN (hypertension): Plan: Treated with metoprolol and Imdur. Blood pressure is acceptable (9) Rotator cuff tear, right: Plan: Follows with Dr. Lopez with orthopedic surgery. Planned reverse shoulder replacement later this year (10) Alcohol use disorder: Plan: Patient regularly drinks beer daily. Cont AWSS protocol with gabapentin + symptom/score triggered ativan prn . Telemetry . (11) Tobacco abuse: Plan: Longstanding history of 1 pack/day tobacco use. Counselled to quit Plan Lovenox 40mg daily - DVT proph Disposition: Hopeful discharge to home later this week. Admission and Anticipated Discharge Date Admission Date: April 25, 2022 Subjective Patient reports improvement in his respiratory status progressively portable Gram-negative rods isolated in the sputum. Add patient on intravenous cefepime, . He is also on intravenous Solu-Medrol. He continues to require oxygen per nasal cannula. White blood cell count is trending down Physical Exam Physical Exam: Head and ENT no thyroid enlargement trachea midline Cardiovascular S1-S2 are normal no S3 Lungs bilateral air entry fair no wheezing Abdomen soft nondistended positive bowel sounds no rebound tenderness Extremity shows trace edema Neurologically no focal deficits Skin shows no rash no cyanosis Results & Data Results & Data ([facility]) Vital Signs (Past 12 Hours) Vital Signs Temp Pulse Resp BP Pulse Ox O2 Del Method O2 Del Method 04/30/22 21:47 Nasal Cannula 04/30/22 19:32 36.5 C 53 L 20 109/62 92 Nasal Cannula 04/30/22 19:38 69 20 91 Nasal Cannula 04/30/22 16:52 36.8 C 66 16 115/68 94 Nasal Cannula 04/30/22 16:00 Nasal Cannula 04/30/22 14:00 92 Nasal Cannula 04/30/22 13:08 64 18 Nasal Cannula 04/30/22 11:54 36.5 C 77 20 100/63 90 Nasal Cannula O2 Flow Rate O2 Flow Rate 04/30/22 21:47 2.5 04/30/22 19:32 2.0 04/30/22 19:38 2 04/30/22 16:52 2 04/30/22 16:00 2 04/30/22 14:00 2.5 04/30/22 13:08 2 04/30/22 11:54 2 PG Care Time/CCT Total # of Minutes Spent Total Time Spent with Patient: Total time spent is greater than 50% in coordination of care (as documented) at patient's floor/unit and/or counseling patient: Coding Level of Care Code 39043 SUB INP/OBS CARE 2/35MIN Diagnoses Community acquired pneumonia J18.9 Acute respiratory failure J96.00 Sepsis A41.9 Acute kidney injury N17.9 Hyponatremia E87.1 CAD, multiple vessel I25.10 Ischemic cardiomyopathy I25.5 HTN (hypertension) I10 Rotator cuff tear, right M75.101 Alcohol use disorder F19.90 Tobacco abuse Z72.0
[2022-05-01] MEDS: ALBUT/IPRATROP 3MG/0.5MG NEB 3 ML VIAL INH SCH ×4 (01:12→20:10)
[2022-05-01 07:06] LABS: Basophils # (auto) 0.13 K/uL (0-0.2); Basophils % (auto) 0.7 %; Hematocrit (blood only) 38.1 % (40.1-51.0); Hemoglobin 13.7 g/dl (14.0-18.0); Immature Granulocytes # (auto) 0.73 K/uL (0.00-0.02); Immature Granulocytes % (auto) 4.1 %; Lymphocytes # (auto) 2.38 K/uL (1.2-3.4); Lymphocytes % (auto) 13.3 %; Mean Corpuscular Hemoglobin 37.4 pg (25.0-34.0); Mean Corpuscular Volume 104.1 fL (80.0-100.0); Mean Platelet Volume 10.2 fL (9.4-12.4); Monocytes # (auto) 0.84 K/uL (0.24-0.82); Monocytes % (auto) 4.7 %; Neutrophils # (auto) 13.84 K/uL (1.4-6.5); Neutrophils % (auto) 77.2 %; Platelet Count 280 K/uL (130-400); RDW Coefficient of Variation 16.1 % (11.5-14.5); RDW Standard Deviation 61.7 fL (36.4-46.3); Red Blood Count 3.66 M/uL (4.63-6.08); White Blood Count 17.92 K/ul (4.8-10.8)
[2022-05-01] MEDS: SODIUM CHLOR 7% 4 ML NEB NEB SCH ×2 (07:23→20:10)
[2022-05-01 07:28] LABS: BUN Creatinine Ratio 35.7 (10-20); Calcium 8.2 mg/dl (8.5-10.1); Creatinine Clr Calc Pharmacy 77.6 ml/min; Est GFR (African American) 104.3 ml/min
[2022-05-01] MEDS: INSULIN ASPART PER UNIT SC SCH ×4 (08:36→20:54)
[2022-05-01] MEDS: CEFEPIME 1,000 MG in SYRINGE 0 ML IV SCH ×2 (08:52→20:27)
[2022-05-01] MEDS: guaiFENesin 600 MG TABCR PO SCH ×2 (08:53→20:31)
[2022-05-01] MEDS: THIAMINE HCL 100 MG TAB PO SCH (08:53)
[2022-05-01] MEDS: FLUTICASONE/VILANTEROL 100/25MCG 14 PUFFS/INHALER INH SCH (08:53)
[2022-05-01] MEDS: ATORVASTATIN 40 MG TAB PO SCH (08:53)
[2022-05-01] MEDS: ISOSORBIDE MONO EXTENDED REL 30 MG TABCR PO SCH (08:53)
[2022-05-01] MEDS: CLOPIDOGREL BISULFATE 75 MG TAB PO SCH (08:53)
[2022-05-01] MEDS: METOPROLOL SUCC 25MG EXT REL TAB PO SCH (08:53)
[2022-05-01] MEDS: FOLIC ACID 1 MG TAB PO SCH (08:54)
[2022-05-01] MEDS: methylPREDNISolone 40 MG in SYRINGE 0 ML IV SCH ×2 (08:54→20:28)
[2022-05-01] MEDS: ENOXAPARIN INJ 40 MG/0.4 ML SYR SQ SCH (17:18)
--- NOTE | 2022-05-01 19:31 | Hospitalist Progress Note ---
Date of Service May 01, 2022 Assessment & Plan (1) Community acquired pneumonia: Plan: Gram-negative's isolated. Considering his history of alcoholism, this could be Klebsiella. Antibiotics switched to cefepime, Await final identification of pathogen and adjust antibiotics accordingly. Chest x-ray obtained today, April 29, looks a little better. Will obtain chest x-rays every 2 days while hospitalized. He will need outpatient chest x-ray until pneumonia has completely cleared. Blood cultures negative. Repeat COVID/flu/RSV negative. 05/01 -patient showing progress in respiratory status on IV antibiotics Continue oxygen supplementation to maintain sats over 90 (2) Acute respiratory failure: Plan: ACUTE HYPOXIC RESPIRATORY FAILURE. Due to pneumonia and suspected exacerbation of COPD. Treat underlying pneumonia and wean oxygen off as tolerated. Serial chest x-rays until clear. (3) Sepsis: Plan: Present on admission. Now resolved. Blood cx's negative (4) Acute kidney injury: Plan: sepsis associated. Resolved with IV fluids. Monitor intake and output. Serial labs (5) Hyponatremia: Plan: stable. Mild. Likely 2nd to chronic etoh use/"beer potomania". Serial labs (6) CAD, multiple vessel: Plan: History of Anterior STEMI 2016: SP PCI, SALBADOR to ostial LAD and circumflex. Stable. Medical management (7) Ischemic cardiomyopathy: Plan: History of after his anterior STEMI in 2016. Currently stable. Medical management (8) HTN (hypertension): Plan: Treated with metoprolol and Imdur. Blood pressure is acceptable (9) Rotator cuff tear, right: Plan: Follows with Dr. Lopez with orthopedic surgery. Planned reverse shoulder replacement later this year (10) Alcohol use disorder: Plan: Patient regularly drinks beer daily. Cont AWSS protocol with gabapentin + symptom/score triggered ativan prn . Telemetry . Continue monitoring for withdrawal and with patient's repeated tendency to aspiration patient advised alcohol support assistance (11) Tobacco abuse: Plan: Longstanding history of 1 pack/day tobacco use. Counselled to quit Plan Admission and Anticipated Discharge Date Admission Date: April 25, 2022 Subjective Patient has slight improvement in his respiratory status on IV antibiotics but still requires oxygen supplementation No chest pain or shortness of breath reported Review of Systems Review of Systems: Constitutional-no fever or chills ENT-no blurred vision, no double vision, no epistaxis, no sore throat Respiratory-productive cough. No wheezing. No hemoptysis Cardiac-no palpitations, no chest pain, no syncope GI-no nausea, vomiting, diarrhea, melena, hematochezia -no urinary retention, no urinary incontinence, no dysuria, no hematuria Musculoskeletal-no joint pain, Physical Exam Physical Exam: Head and ENT no thyroid enlargement trachea midline Cardiovascular S1-S2 are normal no S3 Lungs bilateral air entry fair no wheezing Abdomen soft nondistended positive bowel sounds no rebound tenderness Extremity shows trace edema Neurologically no focal deficits Skin shows no rash no cyanosis Results & Data Results & Data ([facility]) Vital Signs (Past 12 Hours) Vital Signs Temp Pulse Resp BP BP Pulse Ox Pulse Ox 05/01/22 19:21 36.6 C 59 L 18 151/81 H 94 05/01/22 16:00 95 05/01/22 15:58 36.7 C 65 22 127/69 96 05/01/22 12:33 36.5 C 67 18 128/74 93 05/01/22 12:32 71 20 91 05/01/22 08:00 05/01/22 08:46 93 05/01/22 08:28 36.5 C 94 H 24 101/67 88 L O2 Del Method O2 Del Method O2 Flow Rate O2 Flow Rate 05/01/22 19:21 Nasal Cannula 3 05/01/22 16:00 Nasal Cannula 3 05/01/22 15:58 Nasal Cannula 3 05/01/22 12:33 Nasal Cannula 2 05/01/22 12:32 Nasal Cannula 3 05/01/22 08:00 Nasal Cannula 2 05/01/22 08:46 Nasal Cannula 3 05/01/22 08:28 Nasal Cannula 2 PG Care Time/CCT Total # of Minutes Spent Total Time Spent with Patient: Total time spent is greater than 50% in coordination of care (as documented) at patient's floor/unit and/or counseling patient: Coding Level of Care Code 24390 SUB INP/OBS CARE 2/35MIN Diagnoses Community acquired pneumonia J18.9 Acute respiratory failure J96.00 Sepsis A41.9 Acute kidney injury N17.9 Hyponatremia E87.1 CAD, multiple vessel I25.10 Ischemic cardiomyopathy I25.5 HTN (hypertension) I10 Rotator cuff tear, right M75.101 Alcohol use disorder F19.90 Tobacco abuse Z72.0
[2022-05-01] MEDS: LANTUS PER UNIT CHARGE SQ SCH (20:55)
[2022-05-02] MEDS: ALBUT/IPRATROP 3MG/0.5MG NEB 3 ML VIAL INH SCH ×3 (01:58→13:20)
[2022-05-02 06:54] LABS: Basophils # (auto) 0.13 K/uL (0-0.2); Basophils % (auto) 0.7 %; Hematocrit (blood only) 37.3 % (40.1-51.0); Hemoglobin 13.5 g/dl (14.0-18.0); Immature Granulocytes # (auto) 0.78 K/uL (0.00-0.02); Immature Granulocytes % (auto) 4.4 %; Lymphocytes % (auto) 13.6 %; Mean Corpuscular Hemoglobin 36.8 pg (25.0-34.0); Mean Corpuscular Hgb Conc 36.2 g/dL (32.0-36.0); Mean Corpuscular Volume 101.6 fL (80.0-100.0); Mean Platelet Volume 10.1 fL (9.4-12.4); Monocytes # (auto) 1.05 K/uL (0.24-0.82); Monocytes % (auto) 5.9 %; Neutrophils # (auto) 13.29 K/uL (1.4-6.5); Neutrophils % (auto) 75.4 %; Nucleated RBC # (auto) 0.02 K/uL (0-0); Nucleated RBC % (auto) 0.1 %; Platelet Count 262 K/uL (130-400); RDW Coefficient of Variation 16.3 % (11.5-14.5); RDW Standard Deviation 59.9 fL (36.4-46.3); Red Blood Count 3.67 M/uL (4.63-6.08); White Blood Count 17.65 K/ul (4.8-10.8)
[2022-05-02] MEDS: SODIUM CHLOR 7% 4 ML NEB NEB SCH (07:14)
[2022-05-02 07:31] LABS: BUN Creatinine Ratio 37.8 (10-20); Calcium 8.3 mg/dl (8.5-10.1); Creatinine Clr Calc Pharmacy 88.5 ml/min; Est GFR (African American) 109.8 ml/min; Est GFR (Non-African American) 94.8 ml/min; Potassium 4.8 mmol/L (3.5-5.1)
[2022-05-02] MEDS: INSULIN ASPART PER UNIT SC SCH ×2 (08:13→11:53)
[2022-05-02] MEDS: ISOSORBIDE MONO EXTENDED REL 30 MG TABCR PO SCH (08:19)
[2022-05-02] MEDS: guaiFENesin 600 MG TABCR PO SCH (08:19)
[2022-05-02] MEDS: methylPREDNISolone 40 MG in SYRINGE 0 ML IV SCH (08:19)
[2022-05-02] MEDS: THIAMINE HCL 100 MG TAB PO SCH (08:19)
[2022-05-02] MEDS: METOPROLOL SUCC 25MG EXT REL TAB PO SCH (08:20)
[2022-05-02] MEDS: FOLIC ACID 1 MG TAB PO SCH (08:20)
[2022-05-02] MEDS: FLUTICASONE/VILANTEROL 100/25MCG 14 PUFFS/INHALER INH SCH (08:20)
[2022-05-02] MEDS: ATORVASTATIN 40 MG TAB PO SCH (08:20)
[2022-05-02] MEDS: CEFEPIME 1,000 MG in SYRINGE 0 ML IV SCH (08:23)
[2022-05-02] MEDS: CLOPIDOGREL BISULFATE 75 MG TAB PO SCH (09:44)
--- NOTE | 2022-05-02 15:21 | Discharge Summary ---
Date of Service date of admission - April 25, 2022 date of discharge - May 02, 2022 Admission HPI Per Admitting Provider Aram De La Cruz is a 66-year-old male with past medical history significant for CAD, PAD, hypertension, dyslipidemia, alcohol use disorder, and tobacco use who is presenting today with 9 days of night sweats and fatigue. Nearly 2 weeks ago on , 04/14, patient began developing night sweats, fatigue, chills, and nausea. He has been taking NyQuil regularly for relief of symptoms, without success. He is struggling to eat much and has been only able to drink small amounts of fruit juices and water for the past 9 days, noting he has not had any alcohol, cigarettes, or formed meals for 9 days now. He has been somewhat tremulous which he attributes to both his night sweats and sudden alcohol cessation, otherwise is without any fevers, chest pain, cough, or shortness of breath but notes he just feels fatigued with any activities. He has not not vomited or had any abdominal pain, diarrhea, or constipation. He has not had any seizure-like activity, or audio, visual, or tactile hallucinations. On presentation to ED, he was 78% on room air, tachypneic with RR 3040s, borderline tachycardic and mildly hypotensive however maintaining MAP >65. Now on 6 L NC with SPO2 94%. Labs notable for WBC of 21 with left shift, sodium 131, BUN 37, creatinine 1.76, T bili 1.9, AST 100, ALT 60. Troponin 36.2. CRP and procalcitonin pending, lactate normal at 1.6. COVID-negative. CXR shows bilateral lower lung predominant airspace opacities likely representing atelectasis versus pneumonia versus aspiration. Principal Diagnosis 1. acute hypoxic respiratory failure 2. bilateral pneumonia 3. suspected COPD with exacerbation 4. alcohol abuse with alcohol withdrawal 5. CAD 6. acute kidney injury - resolved 7. sepsis 2nd to #2 - resolved Discharge Exam gen - looks much better than earlier in the stay; shakes/tremors resolved; minimal cough; thin mouth - MMM neck - no JVD heart - RRR s1 s2; no murmur lungs - b/l wheezing much improved from prior exams; airation improved b/l; rhonchi resolved; crackles improved b/l; no increased work of breathing abd - soft NT ND BS+ ext - no edema, pulses 2+ b/l neuro - tremors resolved psych - a/o x 3; no DTs Discharge Data Allergies Allergy/AdvReac Type Severity Reaction Status Date / Time No Known Allergies Allergy Verified 04/25/22 14:59 Consultations PT, OT Diabetes Education Procedures Performed 2-step ambulatory O2 test -- no need for home O2 Ordered Studies Chest X-Ray 04/25/22 10:04 XR chest 1V portable CLINICAL HISTORY: Dyspnea TECHNIQUE: Single frontal radiograph of the chest was obtained. Comparison: Comparison is made to chest radiograph dated 721 FINDINGS: ACDF is noted. Calcified aortic knob is seen. Airspace opacities are seen in the bilateral lower lungs, right greater than left. No evidence of pleural effusion or pneumothorax. IMPRESSION: Bilateral lower lung predominant airspace opacities which may represent atelectasis, pneumonia, and/or aspiration. ACT 112: Negative or not required by law. Electronically signed by: Jimenez Lawrence M.D. 04/25/2022 10:32 AM Chest CTA 04/26/22 14:01 CT ANGIOGRAM OF THE CHEST CLINICAL HISTORY: Acute respiratory failure. COMPARISON STUDY: Chest x-ray dated 04/25/2022. Chest CT dated 01/03/2019. TECHNIQUE: Following the IV administration of 113 cc of Optiray 320, CT angiogram of the chest was performed from the upper abdomen to the thoracic inlet utilizing the pulmonary embolus protocol. Images are reviewed in the axial, sagittal, and coronal planes. 3-D MIPS images are created and assessed. IV contrast was administered without complication. A dose lowering technique was utilized adhering to the principles of ALARA. The examination is significantly degraded by motion artifact. CT DOSE: 515.88 mGy.cm FINDINGS: Thyroid: Imaged portions of the thyroid gland are normal in size and attenuation. Thoracic aorta: There is atherosclerotic calcification of the thoracic aorta, which is normal in caliber and demonstrates standard 3-vessel arch anatomy. The thoracic aorta is not well opacified. Pulmonary vasculature: The main pulmonary arteries are dilated indicating pulmonary artery hypertension. There are no filling defects identified in main, lobar, or proximal segmental pulmonary branches to suggest pulmonary embolus. The segmental and subsegmental vessels are suboptimally assessed due to motion artifact. Heart: The heart is enlarged and without pericardial effusion. The coronary arteries density calcified. Lungs and pleural spaces: Evaluation of the lung parenchyma is significantly compromised by motion artifact. Mild emphysematous change is noted. The trachea and central airways appear clear. Multifocal airspace consolidation is seen throughout both lungs, right greater than left. There are scattered calcified granulomas. Trace pleural effusions are seen at both lung bases. Foci of probable scarring are seen throughout both lungs. Mediastinum: There are numerous mildly enlarged adjacent lymph nodes. AP window nodes measure up to 14 mm in short axis. A precarinal node measures 11 mm in short axis. Calcified mediastinal nodes are similar to previous. Kaitlynn: Enlarged hilar nodes measure up to 14 mm in short axis. Axillae: There is no axillary lymphadenopathy. Upper abdomen: A 6 cm simple cyst is partially visualized arising from the upper pole of the right kidney. A small hiatal hernia is noted. Skeletal structures: The skeletal structures are osteopenic. There is a chronic compression deformity of T12. Fusion hardware is seen in the lower cervical spine. No lytic or blastic lesion is seen. IMPRESSION: 1. There is no evidence of central pulmonary embolus in the main, lobar, or proximal segmental pulmonary arteries. The segmental and subsegmental branches are suboptimally assessed due to significant motion artifact. 2. Cardiomegaly and mild emphysema. 3. Multifocal airspace consolidation is seen throughout both lungs and is typical in appearance for pneumonia. Radiographic follow-up to resolution is recommended. A follow-up chest CT in several months time is recommended to document complete resolution and to evaluate the underlying lung parenchyma. 4. Trace pleural effusions. 5. Mildly enlarged mediastinal and hilar lymph nodes are likely reactive. 6. Additional findings as above. ACT 112: Negative or not required by law. Electronically signed by: Gilberto Castañeda M.D. 04/26/2022 4:01 PM Chest X-Ray 04/29/22 08:43 XR chest 1V portable CLINICAL HISTORY: Pneumonia. COMPARISON STUDY: Chest radiograph April 25, [address] April 26, 2022. FINDINGS: There is no pneumothorax or pleural effusion. Mild bilateral hilar enlargement is unchanged. Cardiomediastinal silhouette is stable. There is no evidence for pulmonary edema. Reticulonodular interstitial thickening is again noted. Patchy opacities have slightly improved. IMPRESSION: Findings suggestive of slight improvement in multifocal pneumonia. Continued radiographic follow-up to ensure resolution is recommended. ACT 112: Negative or not required by law. Electronically signed by: Juve Patel M.D. 04/29/2022 9:07 AM Hospital Course (1) Bilateral pneumonia: Severe, with resulting acute hypoxic respiratory failure. CXR and CT chest with b/l pneumonia. Peak O2 requirement was 8 L NC O2. By discharge was fully weaned off supplemental O2, and he passed his 2-step ambulatory O2 test. Blood cultures were negative while here. COVID/Flu/RSV testing were negative. Initially was treated with IV rocephin/zithromax. Sputum culture, however, grew pansensitive pseudomonas and thus the above antibiotics were changed to IV cefepime. He received IV cefepime until the day of discharge at which time he was changed to PO Levaquin 750mg daily for 3 additional days. He did receive dedicated pseudomonas coverage for a total of 7 days of IV/PO therapy. I recommended that he establish care with [facility] in light of suspected COPD, the severity of his pneumonia, need for follow-up imaging and PFTs, etc. (2) Acute respiratory failure: ACUTE HYPOXIC RESPIRATORY FAILURE - 2nd to #1, and likely has underlying COPD with exacerbation as well. Received IV antibiotics, IV steroids, bronchodilators, saline nebs, mucolytics, and other supportive care. Again his peak O2 requirement was 8 liters NC O2. By discharge he was fully weaned off O2 and passed his 2-step ambulatory O2 test. He will finish a course of PO antibiotics/steroids, continue on albuterol/ipratropium nebs prn, and remain on Breo daily until seen by [facility]. (3) Sepsis: 2nd to #1 resolved blood cx's negative while here (4) Acute kidney injury: sepsis associated YULISSA - resolved peak Cr was 1.7 discharge Cr was 0.7 (5) Hyponatremia: likely 2nd to chronic etoh use/"beer potomania" lowest Na level = 131 discharge Na level = 132 his hyponatremia is largely chronic as Na levels dating back to 2019 have been low (6) CAD, multiple vessel: Anterior STEMI 2016: PCI, SALBADOR to ostial LAD and circumflex. Repeat cath in May 2018: * 40-50% ostial circumflex in-stent restenosis, 40-50% diffuse mid circumflex * 50-60% latemid RCA (IFR 0.96). * Widely patent proximal LAD stent, distal LAD with CHRISTINE II flow potentially suggestive of microvascular dysfunction Continue metoprolol, isosorbide mononitrate; lisinopril was held due to YULISSA but later resumed at 1/2 his previous dose - he will now take 5mg daily. Continue Plavix. Continue statin. no evidence of ACS while here. (7) Ischemic cardiomyopathy: History of such after his anterior STEMI in 2016. Exercise SPECT 05/2018: Positive for small amount of mild anterior apical/apical ischemia (SDS 4), 7.2 METS, LVEF 56%. No clinical or radiographic evidence of decompensated CHF during his stay or during his acute hypoxic respiratory failure. (8) HTN (hypertension): BPs were initially low at time of ER presentation likely due to sepsis from his pneumonia. BPs quickly normalized. Later in the stay his BPs were high likely due to etoh withdrawal. BPs at discharge are stable/controlled. (9) Rotator cuff tear, right: Follows with Dr. Rufino Lopez with [facility] orthopedic surgery Patient is planning to undergo reverse shoulder replacement later this year. (10) Alcohol use disorder: Patient regularly drinks 10+ cans of beer daily. He presented in active Etoh withdrawal. He was placed on AWSS protocol with gabapentin + symptom/score triggered ativan prn. During his withdrawal he remained stable on telemetry. He was given folate/thiamine supplementation. By discharge his alcohol withdrawal was finished. He was counseled and encouraged to remain abstinent from EtoH and tobacco but I am uncertain if he will comply. (11) Tobacco abuse: Longstanding history of 1 pack/day tobacco use. Counseled and encouraged to remain smoke free. (12) Alcohol withdrawal: See #10 above. resolved by time of discharge. (13) COPD (chronic obstructive pulmonary disease): SUSPECTED based on long-standing tobacco abuse, emphysematous changes on CT chest, extensive wheezing on examination, etc. He has been set up with [facility] to establish care, obtain PFTs, etc. (14) Prediabetes: Hba1c 6.2%. I encouraged him to speak with his PCP about this diagnosis and the ramifications of such. No specific medicinal Rx advised at this time. f/u with PCP for ongoing surveillance. Plan passed PT/OT evals he will be returning to [facility]rest home Total Time Total Time Spent Total Time Spent (In Minutes): 50 Discharge Plan Discharge Items Patient Disposition: Home - Self-Care Reason For Visit: Pneumonia Discharge Diagnosis: 1. Severe pneumonia - improving 2. Suspected COPD with exacerbation - follow-up with [facility] needed 3. Sepsis due to #1 4. Coronary Artery Disease 5. Alcohol and tobacco use 6. Newly found "prediabetes" Activity: As commented below Activity Comment: gradually increase your activities over the next 7 days Non-emergency contact: Primary Care Provider and Quarter Inspector Call non-emergency contact if: you have any medication questions, your symptoms worsen and you have a fever Follow-up/Referrals: Trenton Dean III, MD [Primary Care Provider] - 05/05/22 3:00 pm (see the [facility] office in 1 week for recheck May 05, 2022 @ 3 pm [facility] Attempted to call, no answer, unable to leave message) Durga Smith MD [Physician] - 05/19/22 8:45 am ( see Dr Smith or any of his pulmonology partners for suspected COPD ; first available appointment May 19 2022 @ [address] Posey Attempted to call, no answer, unable to leave message) Diet: Heart Healthy Addtl Attending Provider Instructions: Mr Dorothy, You had a lengthy hospitalization due to severe pneumonia. I also suspect that you have underlying COPD (emphysema) due to tobacco usage. You also went through alcohol withdrawal. Your pneumonia improved with antibiotics, the suspected COPD improved with nebulizer treatments & steroids, and your alcohol withdrawal has resolved. Please make every effort to abstain from alcohol moving forward. If you need help abstaining from alcohol please speak with your family doctor about resources in the community to remain alcohol-free. Recommendations - 1. antibiotics - levofloxacin 750mg once daily x 3 days beginning 05/03/22. 2. for your breathing - * prednisone taper - begin on 05/03/22; take with food; the prednisone will reduce inflammation in your lungs and help with your breathing * duoneb treatments - 1 treatment every 6 hours as needed for cough/wheeze/shortness of breath * Breo inhaler - 1 puff once daily every day; rinse your mouth with water and spit out after using the inhaler * [id number] mucinex is good for cough; you can take up to 1200mg twice daily as needed for cough 3. take thiamine 200mg twice daily x 30 days 4. LOWER your lisinopril dose to 5mg (1/2 tablet) once daily 5. your hemoglobin a1c - a blood test for sugar diabetes - returned mildly high at 6.2%; this value places you in the "prediabetes" category. I am not recommending any medication at this time for this problem. See handouts on pre- diabetes & the "a1c" test. Talk to your doctor about ways to control this with diet. Alcohol cessation will lower your chances of developing diabetes. 6. please make every effort to remain smoke-free. Continued smoking will allow ongoing damage to your lungs much of which will be permanent. Please talk to your doctor about ways to quit smoking. Follow-up - see separate section Return to [facility] if - * you have recurrent fevers over 100 degrees * you have worsening shortness of breath * you have chest pains * you develop severe diarrhea * any other concerns It was our pleasure to care for you at [facility]! Please continue to feel better, Dr Norris Pending Studies at Discharge: No Stand-Alone Forms: My [facility], Smoking Cessation Medications and DC Order Prescriptions: New ipratropium-albuterol 0.5 mg-3 mg(2.5 mg base)/3 mL Solution For Nebulization 3 ml inhalation Q6R PRN (Reason: cough/wheeze/shortness of breath) Qty: 1 0RF thiamine HCl (vitamin B1) 100 mg Tablet 200 mg PO BID 30 Days Qty: 120 0RF fluticasone furoate-vilanterol [Breo Ellipta] 100-25 mcg/dose Blister With Device 1 puff inhalation DAILY Qty: 1 2RF Rx Instructions: rinse mouth with water after using. prednisone 10 mg tablet 10 mg PO DIRECTED Qty: 20 0RF Rx Instructions: start 05/03/22: 4 tabs days 1/2; 3 tabs days 3/4; 2 tabs days 5/6; 1 tab days 7/8. Take with food. Continued isosorbide mononitrate 30 mg tablet extended release 24 hr 30 mg PO QAM Qty: 90 3RF clopidogrel [Plavix] 75 mg tablet 75 mg PO QAM Qty: 90 3RF metoprolol succinate 25 mg tablet extended release 24 hr 25 mg PO QAM Qty: 90 3RF atorvastatin [Lipitor] 40 mg tablet 40 mg PO QAM Qty: 90 3RF Changed lisinopril 10 mg tablet 5 mg PO QAM Qty: 30 11RF Discharge Orders: Discharge Order (Routine); Ordered 05/02/22 Ordered By: Paul Norris Admission Data Admit Date/Time: 04/25/22 13:08 Attending Provider: Paul Norris Admit Provider: Jose Garcia Primary Care Provider: Trenton Dean III Other Providers: Jose Garcia Other Interventions: Discharge Summary Assessment (RN) Last Done: 05/02/22 14:48 Coding Level of Care Code HOSP INP/OBS DISCH >30 MIN Diagnoses Bilateral pneumonia J18.9 Acute respiratory failure J96.00 Sepsis A41.9 Acute kidney injury N17.9 Hyponatremia E87.1 CAD, multiple vessel I25.10 Ischemic cardiomyopathy I25.5 HTN (hypertension) I10 Rotator cuff tear, right M75.101 Alcohol use disorder F19.90 Tobacco abuse Z72.0 Alcohol withdrawal F10.939 COPD (chronic obstructive pulmonary disease) J44.9 Prediabetes R73.03
[2022-05-02] MEDS ORDERED: levoFLOXacin 750 MG TAB PO SCH (16:00)
== END 2022-05-02 15:41 | disposition home or self-care (01) | DRG 871 ==
LOC: ED 09:54 → 2S 13:08 → SUATTDRO 13:08 → 2S 15:53
DX: I25.2 Old myocardial infarction; Z79.02 Long term (current) use of antithrombotics/antiplatelets; J96.01 Acute respiratory failure with hypoxia; F17.210 Nicotine dependence, cigarettes, uncomplicated; I25.10 Atherosclerotic heart disease of native coronary artery without angina pectoris; Z79.899 Other long term (current) drug therapy; J43.9 Emphysema, unspecified; M75.101 Unspecified rotator cuff tear or rupture of right shoulder, not specified as traumatic; J15.1 Pneumonia due to Pseudomonas; I10 Essential (primary) hypertension; E87.1 Hypo-osmolality and hyponatremia; R65.20 Severe sepsis without septic shock; E86.0 Dehydration; Z83.3 Family history of diabetes mellitus; E78.5 Hyperlipidemia, unspecified; Z20.822 Contact with and (suspected) exposure to COVID-19; F10.139 Alcohol abuse with withdrawal, unspecified; I25.5 Ischemic cardiomyopathy; Z95.5 Presence of coronary angioplasty implant and graft; A41.52 Sepsis due to Pseudomonas; N17.9 Acute kidney failure, unspecified; R73.03 Prediabetes; Z79.51 Long term (current) use of inhaled steroids

== ENCOUNTER 2022-06-13 04:41 | Inpatient (IN) ==
--- NOTE | 2022-05-16 09:58 | PAT Medication Instructions ---
Medication Instructions Date of Service May 16, 2022 Home Medications Medication Instructions Recorded isosorbide mononitrate 30 mg 30 mg PO QAM #90 tabs 09/08/21 tablet,extended release 24 hr clopidogrel 75 mg tablet (Plavix) 75 mg PO QAM #90 tabs 09/09/21 metoprolol succinate 25 mg 25 mg PO QAM #90 tabs 09/30/21 tablet,extended release 24 hr atorvastatin 40 mg tablet (Lipitor) 40 mg PO QAM #90 tabs 02/06/22 thiamine HCl (vitamin B1) 100 mg 200 mg PO BID 30 days #120 tabs 05/02/22 tablet isosorbide mononitrate 30 mg tablet,extended release 24 hr 30 mg PO QAM clopidogrel 75 mg tablet (Plavix) 75 mg PO QAM metoprolol succinate 25 mg tablet,extended release 24 hr 25 mg PO QAM atorvastatin 40 mg tablet (Lipitor) 40 mg PO QAM thiamine HCl (vitamin B1) 100 mg tablet 200 mg PO BID fluticasone furoate 100 mcg-vilanterol 25 mcg/dose inhalation powder (Breo Ellipta) 1 puff inhalation QAM ipratropium 0.5 mg-albuterol 3 mg (2.5 mg base)/3 mL nebulization soln 3 ml inhalation Q6H PRN lisinopril 10 mg tablet 10 mg PO QAM nitroglycerin 0.4 mg sublingual tablet 0.4 mg sublingual UD PRN Continue as directed nitroglycerin 0.4 mg sublingual tablet 0.4 mg sublingual UD PRN(if needed) ASK your prescriber and surgeon clopidogrel 75 mg tablet (Plavix) 75 mg PO QAM STOP taking 2 weeks before surgery (or as soon as possible if surgery is within 2 weeks) DO NOT take the morning of surgery thiamine HCl (vitamin B1) 100 mg tablet 200 mg PO BID lisinopril 10 mg tablet 10 mg PO QAM Take morning of surgery With a small sip of water, OTHERWISE NOTHING TO EAT OR DRINK AFTER MIDNIGHT: isosorbide mononitrate 30 mg tablet,extended release 24 hr 30 mg PO QAM metoprolol succinate 25 mg tablet,extended release 24 hr 25 mg PO QAM atorvastatin 40 mg tablet (Lipitor) 40 mg PO QAM fluticasone furoate 100 mcg-vilanterol 25 mcg/dose inhalation powder (Breo Ellipta) 1 puff inhalation QAM ipratropium 0.5 mg-albuterol 3 mg (2.5 mg base)/3 mL nebulization soln 3 ml inhalation Q6H PRN(if needed) Take evening before surgery thiamine HCl (vitamin B1) 100 mg tablet 200 mg PO BID ipratropium 0.5 mg-albuterol 3 mg (2.5 mg base)/3 mL nebulization soln 3 ml inhalation Q6H PRN(if needed) Other Notes If you have any questions please call us at [phone] or [phone] or [phone] or [phone]
--- NOTE | 2022-06-06 08:59 | Anesthesiology Consultation ---
Date of Service June 06, 2022 Assessment & Plan (1) Encounter for pre-operative examination: Chart Review Chart Review: Acceptable Risk for Surgery and Patient seen in Pre Admission Testing -Discussed with Dr. Alcantar- pt follows routinely with cardio- good functional status- patient can proceed as scheduled Prior to 04/2022 [facility] admission- drinking 10-12 beers daily- currently drinking 4-5 beers/week Pt is NOT an Outpatient Joint candidate Per PAT appt on 06/06/22, patient denies any recent travel. Pt resides at [facility]. Pt is NOT vaccinated for Covid. Preop Covid testing needed (surgeon's office informed) . Educated on importance of using Covid precautions one week prior to surgery Pt admitted to [facility] 04/26/22-05/02/22= patient admitted for acute hypoxic respiratory failure, bilateral pneumonia, suspected COPD with exacerbation, alcohol abuse with alcohol withdrawal, CAD, YULISSA (resolved), sepsis secondary to pneumonia (resolved). Bilateral pneumoniaresulting in acute hypoxic respiratory failure. Was up to 8 L NC O2. By discharge was fully weaned off supplemental oxygen. Repeat blood cultures were negative elevated. COVID/flu/RSV testing was negative. Treated with IV antibiotics. Hyponatremialikely secondary to chronic EtOH use. CADcontinue current medications. No evidence of ACS while here. Ischemic cardiomyopathystatus post anterior STEMI in 2015. EF improved 2018. No clinical or radiographic evidence of decompensated CHF during stay. Hypertensioninitially low at time of ER presentationBPs quickly normalized. Stable/controlled at discharge. Rotator cuff tearfollowing with Orthoplanning to undergo right reverse shoulder replacement later this year. Alcohol usedrinks 10+ cans of beer daily. By discharge alcohol withdrawal was finished. Tobacco abuse. COPDsuspectedhas been set up with pulmonary to establish care. Prediabetesencouraged to follow-up with PCP. Last seen by cardiology 02/02/2022 = anterior STEMI status post PCI to ostial LAD and circumflex in 2015. Repeat cath 2018 showed patent LAD stent, moderate left circumflex in-stent restenosis. Negative IFR of mid RCA. Ischemic cardiomyopathy/LV dysfunctionrecovered EF May 2018. Hypertension. Suspected PAD with diminished lower extremity pulses. No recent claudication. Dyslipidemiaon statin. Heavy alcohol use. Tobacco use. " Stable from cardiac standpoint. Primary limited by right upper extremity pain/numbness in the setting of rotator cuff and median ulnar neuropathy. With walking no recurrent anginal symptoms. Plan to continue single antiplatelet therapy with Plavix. Increase lisinopril from 5 to 10 mg. Continue Imdur/metoprolol. Will resume atorvastatin. Follow-up in 9 months. Teaching & Discussion Pre-Anesthesia Teaching/Discussion Notes: Instructed NPO after midnight before surgery,except medications with 15 cc of water. Medication instructions provided according to the PAT guidelines. History Surgery Operation Date: 06/13/22 08:50 Proposed Procedures p Right Reverse Total Shoulder Arthroplasty - Rufino Lopez DO s Right Carpal Tunnel Release - Rufino Lopez DO Height/Weight Height: 5 ft 9 in Weight: 74.8 kg Allergies Allergy/AdvReac Type Severity Reaction Status Date / Time No Known Allergies Allergy Verified 05/13/22 09:42 Medications Home Medications Medication Instructions Recorded Confirmed Last Taken isosorbide mononitrate 30 mg 30 mg PO QAM #90 tabs 09/08/21 05/13/22 Unknown tablet,extended release 24 hr clopidogrel 75 mg tablet (Plavix) 75 mg PO QAM #90 tabs 09/09/21 05/13/22 Unknown metoprolol succinate 25 mg 25 mg PO QAM #90 tabs 09/30/21 05/13/22 Unknown tablet,extended release 24 hr atorvastatin 40 mg tablet (Lipitor) 40 mg PO QAM #90 tabs 02/06/22 05/13/22 Unknown fluticasone furoate 100 1 puff inhalation QAM 05/13/22 05/13/22 Unknown mcg-vilanterol 25 mcg/dose inhalation powder (Breo Ellipta) ipratropium 0.5 mg-albuterol 3 mg 3 ml inhalation Q6H PRN 05/13/22 05/13/22 Unknown (2.5 mg base)/3 mL nebulization cough/wheeze/shortness of breath soln lisinopril 10 mg tablet 10 mg PO QAM 05/13/22 05/13/22 Unknown nitroglycerin 0.4 mg sublingual 0.4 mg sublingual UD PRN Chest Pain 05/13/22 05/13/22 Unknown tablet oxycodone-acetaminophen 5 mg-325 1 tab PO Q6H PRN pain #20 tabs 05/20/22 Unknown mg tablet (Percocet) Past Medical History Medical History (Updated 06/07/22 @ 08:33 by Chuyita Valente PA-C) Alcohol use disorder Anxiety CAD (coronary artery disease) Anterior STEMI 2015- PCI, [place] to ostial LAD and Cx Repeat cath 2018- showed 40-50% ostial Cx in stent restenosis, 40-50% d iffuse mid circumflex, 50-60% latemid RCA (IFR 0.96). Widely patent proximal LAD stent, distal LAD with CHRISTINE II flow potentially suggestive of microvascular dysfunction Chronic back pain COPD (chronic obstructive pulmonary disease) Breathing stable GERD (gastroesophageal reflux disease) Well controlled and stable Hearing deficit No hearing aids History of pneumonia [facility] admission, 04/2022 > currently using inhaler and nebulizer at home PRN- symptoms improved HTN (hypertension) Hx of carpal tunnel syndrome Right Hyperlipidemia Hypertension Hyponatremia Ischemic cardiomyopathy Myocardial infarction 2017 Poor historian Prediabetes Hgb A1C 6.2 on 04/27/22 Sepsis 04/2022- admitted for sepsis and pneumonia - treated- symptoms resolved Tobacco abuse Exercise / Class Metabolic Activity II 4-5 Yardwork/Stairs/Walk up hill (one flight of stairs - no chest pain or SOB ) Past Family History Family History Mother Family history of diabetes mellitus Family hx of colon cancer Brother Family history of esophageal cancer twin brother Other No family history of adverse response to anesthesia Past Surgical History Surgical History History of arthroscopy of left shoulder x2 History of cardiac cath 2017 > stents x2 2019 > no stents History of esophagogastroduodenoscopy (EGD) History of fusion of cervical spine x2--normal ROM History of heart artery stent 2 stents 02/2017 @ [facility] follows with Dr. Negro History of left inguinal hernia repair History of lumbar discectomy History of right inguinal hernia repair History of surgical procedure on eye proper using laser left History of tooth extraction all teeth removed Past Anesthesia History No Hx of Anesthesia Complications and No Family Hx of Anesthesia Complications History of PONV No Hx of PONV and No Hx of Motion Sickness Social History Smoking Status: Current every day smoker tobacco type: cigarettes Smoking cigarettes per day: 4cigs/day (heavier smoker prior to 04/2022) Do You Dip or Chew Tobacco: Yes (hx-quit 27 years ago) Hx Alcohol Use: Yes Alcohol type: beer alcohol intake frequency: other Alcohol Intake Frequency Comment: Was drinking 10-12 beers per day- now 4 beers/week since 04/2022 Hx Substance Use: No substance use type: does not use Review of Systems Patient denies chest pain, shortness of breath, dyspnea on exertion, cough, wheezing, palpitations. No hx of seizures, stroke, apnea/snoring. No hx of blood clots or blood transfusions Physical Exam Vital Signs VITALS BP 147/74 P 54 TEMP 98.1 SP02 96% RESP 16 Constitutional no acute distress ENMT Mouth: no TMJ clicking Thyromental Distance: > or= 3.5 Finger Breadths (3.5) Mallampati Class: II Full dentures on top and bottom Neck + limited neck extension (mild) Respiratory normal respiratory effort; no respiratory distress Auscultation: lungs clear to auscultation bilaterally (mild course breath sounds throughout) and + diminished lung sounds; no wheezes Cardiovascular Rate/Rhythm: regular rate and regular rhythm Heart Sounds: no murmur Vessels: no carotid bruit Musculoskeletal Spine: no pain with cervical ROM Extremities: extremities normal to inspection Psychiatric Orientation: alert Lab Results Anesthesia Preop Results Results Anesthesia Widget: WBC 10.13 K/ul (4.8-10.8) 06/06/22 Hgb 14.1 g/dl (14.0-18.0) 06/06/22 Hct 40.4 % (42.0-52.0) L 06/06/22 Plt 180 K/uL (130-400) 06/06/22 Na 136 mmol/L (136-145) 06/06/22 K 4.5 mmol/L (3.5-5.1) 06/06/22 Cl 103 mmol/L (98-107) 06/06/22 CO2 28 mmol/L (21-32) 06/06/22 BUN 14 mg/dl (6-23) 06/06/22 Creat 0.94 mg/dl (0.6-1.4) 06/06/22 Glucose Level 95 mg/dl (70-99(Fasting)) 06/06/22 PT 11.4 Seconds (9.0-12.0) 06/06/22 PTT 29.9 Seconds (21.0-31.0) 06/06/22 INR 1.1 (0.9-1.1) 06/06/22 TSH 0.125 uIu/ml (0.300-4.500) L 04/27/22 Free T4 1.51 ng/dl (0.61-1.60) 04/27/22 HA1c 6.2 % (4.5-5.6) H 04/27/22 Urine Color Yellow 04/27/22 Urine Appearance Clear (Clear) 04/27/22 Urine pH 5.5 (4.5-7.5) 04/27/22 Urine Specific [place] 1.040 (1.000-1.030) H 04/27/22 Urine Protein Negative (Negative) 04/27/22 Urine Glucose (UA) Negative (Negative) 04/27/22 Urine Ketones Negative (Negative) 04/27/22 Urine Blood Negative (Negative) 04/27/22 Urine Nitrite Negative (Negative) 04/27/22 Urine Bilirubin Negative (Negative) 04/27/22 Urine Urobilinogen Positive (Negative) H 04/27/22 Urine Leukocyte Esterase Negative (Negative) 04/27/22 Blood Type O Positive 06/06/22 Antibody Screen NEGATIVE 06/06/22 Testing Electrocardiogram Date: 06/06/22 Findings: + SB @ (48bpm) Otherwise normal EKG per cardio. Chest X-Ray Date: 06/06/22 Findings: + NAD Echocardiogram Date: 05/05/18 EF: 50-55% LV Function: normal Other Findings: + LVH (Borderline/asymmetric) and + diastolic dysfunction (Grade 1) Mild apical inferior hypokinesis Compared to study from 2016, the LV systolic function has improved and the wall motion is now nearly normal Stress Test Date: 05/25/18 Type: nuclear SUMMARY: 1. Myocardial perfusion study positive for a small amount of mild anteroapical, apical ischemia (SDS 4). 2. Stress ECG uninterpretable. 3. Average functional capacity. Achieved 7.2 METS. No exercise-induced chest pain. 4. Normal LV size. Normal LV function EF 56% with paradoxical septal motion. (Had subsequent cardiac cath- see below) Cardiac Catheterization Date: 06/18/18 Findings: LM -moderate caliber, mild diffuse disease LAD -widely patent ostial to proximal stent, mid segment 30% at takeoff of diagonals, distal LAD largely free disease as wraps around apex, CHRISTINE II flow in distal LAD. 2 small diagonals without significant disease Circumflex -40-50% ostial in-stent restenosis, diffuse 4050% mid segment disease. Small to moderate caliber OM 2, OM 3 without significant disease RCA -dominant, diffuse 20% proximal to mid, late-mid 50-60% focal, distal luminal irregularities in right PDA, PLB Summary: 1. Moderate nonobstructive coronary artery disease -40-50% ostial circumflex in-stent restenosis, 40-50% diffuse mid circumflex 50-60% latemid RCA (IFR 0.96). Widely patent proximal LAD stent, distal LAD with CHRISTINE II flow potentially suggestive of microvascular dysfunction 2. Mildly elevated intracardiac filling pressure Recommendations: Continued ASCVD risk factor modification Blood pressure control, diuretics for elevated LVEDP Continue to maximize antianginal therapy for residual disease, microvascular dysfunction COVID-19 Risk Screen Screening Information COVID-19 Screen Date: 06/06/22 Exposure 21 Days Family/Household +COVID Last 21 Days: No Exposure 10 Days Any COVID Exposure Last 10 Days: No Symptoms Last 10 Days Experienced COVID Sx Last 10 Days: No + COVID 0-90 Days COVID + in Last 0-90 Days: No Risk Plan COVID Risk Plan: No Risk Identified Patient Education COVID Preop Screening Education Complete: Yes
[2022-06-13] MEDS ORDERED: ACETAMINOPHEN 500 MG TAB PO SCH (06:00)
[2022-06-13] MEDS ORDERED: TRANEXAMIC ACID 1,000 MG **IV Pre-op IV SCH (06:00)
[2022-06-13] MEDS ORDERED: LR 60ML/HR IV SCH (06:00)
[2022-06-13] MEDS ORDERED: FAMOTIDINE 20 MG TAB PO SCH (06:00)
[2022-06-13] MEDS ORDERED: dexAMETHasone 4 MG TAB PO SCH (06:00)
[2022-06-13] MEDS ORDERED: ORTHO JOINT MIX INFIL SCH (06:00)
[2022-06-13] MEDS ORDERED: GABAPENTIN 300 MG CAP PO SCH (06:00)
[2022-06-13] MEDS ORDERED: ceFAZolin 2000MG 2,000 MG/15 ML SYR IV SCH (06:00)
[2022-06-13] MEDS ORDERED: TRANEXAMIC ACID 1,000 MG **IV Intra-op IV SCH (06:00)
[2022-06-13] MEDS ORDERED: BUPIVACAINE 0.5 % 5 MG/1 ML PF 10ML VIAL ONE (06:13)
[2022-06-13] MEDS ORDERED: ORTHO JOINT ANESTHETIC ONE (06:35)
[2022-06-13] MEDS ORDERED: fentaNYL citrate 100 MCG/2 ML VIAL IV PRN (06:36)
[2022-06-13] MEDS ORDERED: ePHEDrine sulfate 50 MG/ML AMP IV PRN (06:36)
[2022-06-13] MEDS ORDERED: ONDANSETRON INJ 2 MG/ML 2 ML VIAL IV PRN ×2 (06:36→09:31)
[2022-06-13] MEDS ORDERED: ATROPINE SULFATE 0.1 MG/ML 10ML SYR IV PRN (06:36)
[2022-06-13] MEDS ORDERED: HYDROmorphone INJ 1 MG/ML SYRINGE IV PRN (06:36)
[2022-06-13] MEDS ORDERED: MIDAZOLAM HCL 1 MG/ML 2ML VIAL ONE (06:43)
[2022-06-13] MEDS ORDERED: fentaNYL citrate 100 MCG/2 ML VIAL ONE (06:43)
--- NOTE | 2022-06-13 06:50 | History & Physical Bridge Note ---
Date of Service June 13, 2022 History & Physical Bridge Note I have examined the patient, reviewed the History & Physical and in the interval since the performance of the History & Physical I have noted the following changes of clinical significance: no changes noted
[2022-06-13] MEDS ORDERED: LIDOCAINE 2% MPF LOCAL 5 ML VIAL INFIL ONE (07:10)
[2022-06-13] MEDS ORDERED: ONDANSETRON INJ 2 MG/ML 2 ML VIAL ONE (07:10)
[2022-06-13] MEDS ORDERED: PROPOFOL IV EMULSION 10 MG/ML 20 ML VIAL IV ONE (07:10)
[2022-06-13] MEDS ORDERED: ePHEDrine sulfate 50 MG/ML SYR ONE (07:19)
--- NOTE | 2022-06-13 08:22 | Operative Report ---
PG Post Operative Report Pre & Post Diagnosis Operation Date: 06/13/22 07:00 Pre-Op Diagnosis: Right Shoulder Cuff Tear Arthropathy, Right Carpal Tunnel Syndrome Post-Op Diagnosis: Right Shoulder Cuff Tear Arthropathy, Right Carpal Tunnel Syndrome I identified the patient and participated in the time-out.: Yes Procedure Operation Date: 06/13/22 07:00 Actual Procedures p Right Reverse Total Shoulder Arthroplasty, Uncemented(Right) - Rufino Lopez DO s Right Carpal Tunnel Release(Right) - Rufino Lopez DO Surgeon Rufino Lopez DO Landfill Grader Rufino Palacios PA-C Estimated Blood Loss 200 Findings Consistent with Post-Op Diagnosis Specimens Right humeral head Description of Procedure A CPT code modifier 59: The long head of the biceps tendon was enlarged and inflamed consistent with tendinopathy. A tenodesis was opted. This was a separate and distinct portion of the procedure. For these reasons, a CPT code modifier 59 will be added to this case. Implants used: I used a [employer]omet Comprehensive reverse total shoulder arthroplasty system with a size 16 press fit micro humeral stem, a standard humeral tray and a +3 retentive humeral bearing, a 25 mm small augment baseplate with a 6.5 mm central screw and superior and inferior locking screws, and a size 40 mm eccentric glenosphere. Aram arrived at [facility] for the above procedure. He was seen in the preoperative holding area and the operative extremity was identified and signed. He was given a preoperative antibiotic, TXA, and an interscalene nerve block. He was taken back to the operating room, laid on table in supine position, and put under general anesthesia. He was then put into the beachchair position. The shoulder and wrist were prepped and draped in sterile fashion. A timeout was done and the patient and the operative extremity was properly identified. The carpal tunnel was done first. A longitudinal incision was made directly over the transverse carpal ligament. Dissection was taken down through the fascia. The ligament was easily identified. A sharp knife and tenotomy scissors were then used to release the transverse carpal ligament. The median nerve was protected throughout the procedure. Care was taken to ensure complete proximal and distal release. Hemostasis was obtained. The wound was then irrigated. The wound was then closed with 3-0 nylon suture in a vertical mattress fashion. He was then placed in a soft dressing. Attention was then turned to the shoulder. A deltopectoral approach was used. Dissection was taken down through the fascia and the deltoid was retracted laterally and the conjoined tendon was retracted medially. The anterior shoulder was exposed. The biceps groove was opened up and the biceps tendon was examined extensively. The biceps tendon demonstrated enlargement and inflammatory changes consistent with longstanding inflammation in the context of osteoarthritis and cuff arthropathy. The long head of the biceps tendon was then tenodesed to the upper border of the pectoralis major. This was a separate and distinct portion of the procedure. The subscapularis was then directly released off the lesser tuberosity with a peel technique. The inferior capsule was released and the humeral head was dislocated. A canal finding reamer was sent down the center of the humeral canal. Sequential reaming up to a size 16 reamer was done. Off that reamer, a proximal humeral resection guide was placed. The proximal humerus was resected at 135 of inclination and 25 of retroversion. Osteophytes were then removed and the glenoid was exposed. Time was spent doing a complete capsular and labral release. The glenoid guide was then placed in the inferior aspect of the glenoid. A 3.2 mm Steinmann pin was then placed into the glenoid vault at 10 of inclination. The glenoid baseplate was then reamed. The final size 25 mm small augment baseplate was then impacted in the place. A 6.5 mm central screw was then placed followed by superior and inferior locking screws. A 40 mm eccentric glenosphere was then impacted into place. Surrounding soft tissues were then injected with 100 cc an orthopedic pain control cocktail. The proximal humerus was then exposed. Sequential broaching of the humerus up to a size 16 broach was done. Off that broach a +3 retentive humeral tray was trialed. The shoulder was then reduced, brought through a full range of motion, and felt to be stable. The shoulder was then dislocated and the broach was removed. The final size 16 micro press-fit humeral stem was then impacted into place. A +3 retentive humeral bearing was then snapped onto a standard humeral tray. The humeral tray was then impacted onto the humeral stem. The shoulder was once again reduced, brought through a full range of motion, and felt to be stable. The subscapularis was then tenodesed back to the lesser tuberosity with transosseous FiberWire sutures and side to side sutures with the arm in 45 of external rotation. A dilute betadyne lavage was then done for 3 minutes. The joint was then irrigated with normal saline solution. Hemostasis was obtained. The interval was closed with 2-0 Vicryl suture. The skin was then closed with 2-0 Vicryl and melisa. A Silverlon dressing was placed and the arm was rested in a regular arm sling. He was then extubated and transferred to a hospital bed. He taken to the postanesthesia care unit in stable condition. He tolerated the procedure well. Rufino Palacios PA-C, was present for the entire procedure. He was critical for patient positioning, prepping, draping, retraction exposure, wound closure and application of sterile dressing. I attest to the content of the Intraoperative Record and any orders documented therein. Any exceptions are noted below.
[2022-06-13] MEDS ORDERED: oxyCODONE HCL IR 5 MG TAB (IMMEDIATE RELEASE) PO PRN (09:31)
[2022-06-13] MEDS ORDERED: NALOXONE HCL 0.4 MG/1 ML VIAL/CARP IV PRN (09:31)
[2022-06-13] MEDS ORDERED: METOCLOPRAMIDE HCL INJ 5 MG/ML 2 ML VIAL IV PRN (09:31)
[2022-06-13] MEDS ORDERED: bisacodyL 10 MG SUPP PR PRN (09:31)
[2022-06-13] MEDS ORDERED: NITROGLYCERIN SL 0.4 MG/TAB TAB SL PRN (09:31)
[2022-06-13] MEDS ORDERED: ALBUT/IPRATROP 3MG/0.5MG NEB 3 ML VIAL INH PRN (09:31)
[2022-06-13] MEDS ORDERED: MAGNESIUM HYDROXIDE SUSP 30 ML UDC PO PRN (09:31)
[2022-06-13] MEDS ORDERED: HYDROmorphone INJ 0.5 MG/0.5 ML SYR IV PRN (09:31)
[2022-06-13] MEDS: SODIUM CHLORIDE 0.9% 1000ML 1,000 ML IV SCH ×2 (09:52→18:37)
[2022-06-13] MEDS: METOPROLOL SUCC 25MG EXT REL TAB PO SCH (10:29)
[2022-06-13] MEDS: ATORVASTATIN 40 MG TAB PO SCH (10:39)
[2022-06-13] MEDS: ISOSORBIDE MONO EXTENDED REL 30 MG TABCR PO SCH (10:39)
[2022-06-13] MEDS: CLOPIDOGREL BISULFATE 75 MG TAB PO SCH (10:41)
[2022-06-13] MEDS: lisinopril 10 MG TAB PO SCH (10:41)
[2022-06-13] MEDS: KETOROLAC TROMETHAMINE 15 MG/ML VIAL IV SCH ×3 (10:42→21:05)
[2022-06-13] MEDS: DOCUSATE SODIUM 100 MG CAP PO SCH ×2 (10:42→21:06)
[2022-06-13] MEDS: MULTIVITAMIN TAB PO SCH (10:42)
[2022-06-13] MEDS: FLUTICASONE/VILANTEROL 100/25MCG 14 PUFFS/INHALER INH SCH (10:42)
--- NOTE | 2022-06-13 12:33 | XRay Report ---
XR shoulder RT min 2V routine CLINICAL HISTORY: Post shoulder surgery COMPARISON: Right shoulder radiographs May 03, 2021 and MRI of the right shoulder October 05, 2021. Right shoulder radiographs March 08, 2022. FINDINGS: Postoperative findings within the spine are incidentally noted. Alignment of the reverse t otal right shoulder arthroplasty is anatomic. There is no periprosthetic fracture or unexpected radio paque foreign body. There are skin melisa. IMPRESSION: Expected findings following reverse total right shoulder arthroplasty. ACT 112: Negative or not required by law. Electronically signed by: Juve Patel M.D. 06/13/2022 12:32 PM
--- NOTE | 2022-06-13 13:58 | Anesthesiology Progress Note ---
Date of Service June 13, 2022 Anesthesia Post Procedure Vital Signs Vital Signs: Temp Pulse Pulse Resp BP Pulse Ox O2 Del Method 06/13/22 13:04 93 Room Air 06/13/22 12:08 36.4 C L 60 18 121/69 94 Nasal Cannula 06/13/22 11:10 36.5 C 59 L 16 102/58 L 93 Nasal Cannula 06/13/22 10:19 36.3 C L 57 L 16 109/67 99 Nasal Cannula 06/13/22 10:14 Nasal Cannula 06/13/22 09:50 36.6 C 60 16 101/66 95 Nasal Cannula 06/13/22 09:16 36.5 C 58 L 16 108/63 93 Nasal Cannula 06/13/22 09:08 36.5 C 60 18 116/78 96 Nasal Cannula 06/13/22 09:00 63 20 116/67 94 Nasal Cannula 06/13/22 08:50 67 18 130/85 96 Oxymask 06/13/22 08:40 36.4 C L 70 16 124/67 95 Oxymask 06/13/22 05:33 36.5 C 57 L 18 128/71 97 Room Air O2 Flow Rate 06/13/22 13:04 06/13/22 12:08 1 06/13/22 11:10 1 06/13/22 10:19 2 06/13/22 10:14 2 06/13/22 09:50 2 06/13/22 09:16 2 06/13/22 09:08 2 06/13/22 09:00 2 06/13/22 08:50 4 06/13/22 08:40 7 06/13/22 05:33 Transfer of Care Handoff Completed per policy Notes Mental Status: alert / awake / arousable and participated in evaluation Patient Amnestic to Procedure: Yes Nausea / Vomiting: adequately controlled Pain: adequately controlled Airway Patency, RR, SpO2: stable & adequate BP & HR: stable & adequate Hydration State: stable & adequate Anesthetic Complications: no major complications apparent and Pt Satisfied with anesthetic care
[2022-06-13] MEDS: ACETAMINOPHEN 500 MG TAB PO SCH ×2 (14:56→21:05)
[2022-06-13] MEDS: ceFAZolin 2000MG 2,000 MG/15 ML SYR IV SCH ×2 (14:58→23:10)
[2022-06-13] MEDS ORDERED: SENNA 8.6 MG TAB PO SCH (21:00)
[2022-06-14] MEDS: ACETAMINOPHEN 500 MG TAB PO SCH (05:00)
[2022-06-14] MEDS: KETOROLAC TROMETHAMINE 15 MG/ML VIAL IV SCH ×2 (05:01→10:09)
--- NOTE | 2022-06-14 06:07 | Orthopedic Progress Note ---
Date of Service June 14, 2022 Assessment & Plan (1) Status post reverse total replacement of right shoulder: Overall is doing fairly well. He is not having any pain in his shoulder. He will be seen by physical therapy today for ambulation and range of motion exercises. He can be discharged home later today. He will follow-up orthopedics in 2 weeks. Isaac Macario was seen and examined at bedside this morning. Overall is doing very well. He is not having any pain in the right shoulder. The nerve block is still in tact. He has no complaints.. Review of Systems All systems reviewed & are unremarkable except as noted in HPI & below. Physical Exam On physical examination the right shoulder, the dressing is clean and dry. The nerve block is still intact. He does not have any dorsiflexion of his wrist or extension of his fingers.. Results & Data Results & Data Laboratory Results . Diagnostic Findings Postoperative x-rays of the right shoulder show the prosthesis to be in anatomic alignment without any evidence of fracture, screws, or loosening. PG Care Time/CCT Total # of Minutes Spent Total Time Spent with Patient: Total time spent is greater than 50% in coordination of care (as documented) at patient's floor/unit and/or counseling patient: Coding Level of Care Code 48613 Post Operative Follow-Up Diagnoses Status post reverse total replacement of right shoulder Z96.611
--- NOTE | 2022-06-14 06:09 | Discharge Summary ---
Date of Service June 14, 2022 Principal Diagnosis Same as "Discharge Diagnosis" noted below under Discharge Instructions. Discharge Exam On physical examination the right shoulder, the dressing is clean and dry. The nerve block is still intact. He does not have any dorsiflexion of his wrist or extension of his fingers.. Discharge Data Procedures Performed Operation Date: 06/13/22 07:00 Actual Procedures p Right Reverse Total Shoulder Arthroplasty, Uncemented(Right) - Rufino Lopez DO s Right Carpal Tunnel Release(Right) - Rufino Lopez DO Ordered Studies 06/13/22 05:00 US - OR guided needle placemen Routine Hospital Course (1) Status post reverse total replacement of right shoulder: On June 13, 2022 Renaldo arrived at [facility] and underwent a right reverse shoulder replacement and carpal tunnel release without complication. He had a general anesthetic and a right interscalene nerve block. Postoperatively he was placed in a sling and transferred to the general orthopedic floors. His hospital course was uneventful. On postop day #1, his vital signs were stable and his pain was well controlled. He was able to participate well with physical therapy doing ambulation and range of motion exercises. He was then discharged home. He will follow with orthopedics in 2 weeks. PG Care Time/CCT Total # of Minutes Spent Total Time Spent with Patient: Total time spent is greater than 50% in coordination of care (as documented) at patient's floor/unit and/or counseling patient: Discharge Plan Discharge Items Patient Disposition: Home - Home Health Services Reason For Visit: DJD Right Shoulder, Right Carpal Tunnel Syndrome Discharge Diagnosis: Right reverse shoulder replacement and carpal tunnel release Activity: Per Instructions section Non-emergency contact: Surgeon Call non-emergency contact if: your wound has increased redness and your wound has increased drainage Follow-up/Referrals: PCP,NO [Primary Care Provider] - Diet: Regular Addtl Attending Provider Instructions: Activity and Therapy Recommendations: * If you are using [facility] then therapy will be provided at your home until they feel you have accomplished all of your goals. * If you are using [facility] then Physical Therapy will be provided until they feel you are ready to start Outpatient Physical Therapy. * If you are not using home therapy then Outpatient Physical Therapy should start about 3-5 days from your day of surgery. Therapy will last about 8-12 weeks * Wear your sling for 3 weeks, unless otherwise instructed. You may remove your sling to shower and to dress, but otherwise, you should be in your sling at all times, including while sleeping * The shoulder replacement is very stable and you can use your hand while in the sling * You were shown a series of exercises in the hospital. Do these exercises daily including the exercises you were shown in physical therapy. Medications: * Narcotic You will likely be sent home from the hospital with a prescription for the narcotic pain medication that worked best throughout your stay. * Other medications may be prescribed for specific circumstances. If you have any questions, please call the office at . * Resume previous home medications unless otherwise instructed Dressing Care: Leave the dressing on your hand in place for 5 days. After 5 days she may remove the dressing and cover it with a Band-Aid if needed. Leave the Silverlon dressing on the shoulder in place for 7 days. After 7 days you may remove the dressing. If the incision is not draining then you may leave the emlisa open to air. If there is a little bit of drainage or if the melisa are getting stuck on your clothing then cover the incision with a dry dressing. The melisa will be removed at your 2 week follow-up appointment. Showering: Do not get the right hand wet until the dressing is removed at 5 days. You may shower with the Silverlon dressing in place. Do not let the shower spray hit the dressing directly. Pat the Silverlon dressing dry. If the dressing becomes wet underneath, then simply remove the dressing. Keep the incision dry until you are 7 days out from the day of surgery. After 7 days you may remove the Silverlon dressing and shower with the melisa exposed. Let soapy water run over the melisa and pat them dry. Do not scrub or soak the incision. Things To Watch For: * Drainage from the incision site that occurs more than one week after your surgery. * Increased redness at the incision site. * Fever above 102 degrees Fahrenheit. * Unusual chest pain or shortness of breath. * Call [facility] at with any of the above problems Follow-Up Visit: Follow-up with Dr. Lopez's PA (Rufino Palacios) 2-3 weeks after your day of surgery. He will remove your melsia and answer any questions. If you have any additional questions or concerns, Dr Lopez is usually in the office at the same time and will be available An appointment was probably scheduled when you signed-up for surgery in the office. If you have any questions call More detailed instructions as well as Frequently Asked Questions were provided in a folder by our office when you signed-up for surgery. Please review these instructions when you get home. If you have any further questions or concerns, please feel free to call the office at [phone] Pending Studies at Discharge: No Stand-Alone Forms: My [facility]ics, Smoking Cessation Medications and DC Order Prescriptions: Continued isosorbide mononitrate 30 mg tablet extended release 24 hr 30 mg PO QAM Qty: 90 3RF clopidogrel [Plavix] 75 mg tablet 75 mg PO QAM Qty: 90 3RF metoprolol succinate 25 mg tablet extended release 24 hr 25 mg PO QAM Qty: 90 3RF atorvastatin [Lipitor] 40 mg tablet 40 mg PO QAM Qty: 90 3RF nitroglycerin 0.4 mg Tablet, Sublingual 0.4 mg sublingual UD PRN (Reason: Chest Pain) ipratropium-albuterol 0.5 mg-3 mg(2.5 mg base)/3 mL solution for nebulization 3 ml inhalation Q6H PRN (Reason: cough/wheeze/shortness of breath) lisinopril 10 mg tablet 10 mg PO QAM fluticasone furoate-vilanterol [Breo Ellipta] 100-25 mcg/dose blister with device 1 puff inhalation QAM Rx Instructions: rinse mouth with water after using. oxycodone-acetaminophen [Percocet] 5-325 mg tablet 1 tab PO Q6H PRN (Reason: pain) Qty: 40 0RF Discharge Orders: Discharge Order (Routine); Ordered 06/14/22 Ordered By: Rufino Lopez Admission Data Admit Date/Time: 06/13/22 08:40 Attending Provider: Rufino Lopez Admit Provider: Rufino Lopez Primary Care Provider: PCPKARL
[2022-06-14] MEDS ORDERED: dexAMETHasone 4 MG TAB PO SCH (08:00)
[2022-06-14] MEDS: FLUTICASONE/VILANTEROL 100/25MCG 14 PUFFS/INHALER INH SCH (08:14)
[2022-06-14] MEDS: ISOSORBIDE MONO EXTENDED REL 30 MG TABCR PO SCH (08:14)
[2022-06-14] MEDS: ATORVASTATIN 40 MG TAB PO SCH (08:14)
[2022-06-14] MEDS: lisinopril 10 MG TAB PO SCH (08:15)
[2022-06-14] MEDS: DOCUSATE SODIUM 100 MG CAP PO SCH (08:15)
[2022-06-14] MEDS: METOPROLOL SUCC 25MG EXT REL TAB PO SCH (08:15)
[2022-06-14] MEDS: MULTIVITAMIN TAB PO SCH (08:15)
[2022-06-14] MEDS: CLOPIDOGREL BISULFATE 75 MG TAB PO SCH (08:16)
== END 2022-06-14 11:51 | disposition home health service (06) | DRG 483 ==
LOC: ASU 04:41 → 3E 08:40 → INTOOBSV 08:40 → OBSVTOIN 08:40

== ENCOUNTER 2024-05-28 05:50 | Inpatient (IN) ==
--- NOTE | 2024-05-03 10:05 | PAT Medication Instructions ---
Medication Instructions Date of Service May 03, 2024 Home Medications Medication Instructions Recorded isosorbide mononitrate 30 mg 30 mg PO QAM #90 tabs 12/28/23 tablet,extended release 24 hr meloxicam 15 mg tablet 15 mg PO DAILY #30 tabs 01/04/24 metoprolol succinate 25 mg 25 mg PO QAM #90 tabs 03/25/24 tablet,extended release 24 hr tizanidine 4 mg tablet 4 mg PO BID PRN muscle spasticity 03/29/24 #30 tabs clopidogrel 75 mg tablet (Plavix) 75 mg PO QAM #30 tabs 04/19/24 lisinopril 10 mg tablet 10 mg PO QAM #90 tabs 05/01/24 nitroglycerin 0.4 mg sublingual tablet 0.4 mg sublingual UD PRN Chest Pain atorvastatin 20 mg tablet 20 mg PO DAILY isosorbide mononitrate 30 mg tablet,extended release 24 hr 30 mg PO QAM meloxicam 15 mg tablet 15 mg PO DAILY metoprolol succinate 25 mg tablet,extended release 24 hr 25 mg PO QAM tizanidine 4 mg tablet 4 mg PO BID PRN muscle spasticity clopidogrel 75 mg tablet (Plavix) 75 mg PO QAM lisinopril 10 mg tablet 10 mg PO QAM Continue as directed nitroglycerin 0.4 mg sublingual tablet 0.4 mg sublingual UD PRN Chest Pain (if needed) ASK your surgeon for instructions meloxicam 15 mg tablet 15 mg PO DAILY ASK your prescriber and surgeon clopidogrel 75 mg tablet (Plavix) 75 mg PO QAM DO NOT take the morning of surgery lisinopril 10 mg tablet 10 mg PO QAM Take morning of surgery With a small sip of water, OTHERWISE NOTHING TO EAT OR DRINK AFTER MIDNIGHT: atorvastatin 20 mg tablet 20 mg PO DAILY isosorbide mononitrate 30 mg tablet,extended release 24 hr 30 mg PO QAM metoprolol succinate 25 mg tablet,extended release 24 hr 25 mg PO QAM tizanidine 4 mg tablet 4 mg PO BID PRN muscle spasticity (if needed) Take evening before surgery tizanidine 4 mg tablet 4 mg PO BID PRN muscle spasticity (if needed) Other Notes If you have any questions please call us at [phone] or [phone] or [phone] or [phone]
--- NOTE | 2024-05-09 12:24 | Anesthesiology Consultation ---
Date of Service May 09, 2024 Assessment & Plan (1) Encounter for pre-operative examination: - Check BSG DOS - Infectious disease screening: Per assessment on 05/09/24- No known recent infectious disease contacts. Cough/headache with symptom onset ~04/24/24. Symptoms resolved except residual mild symptoms. DOS 05/28/24. Advised to contact PAT/surgeon if symptoms not at baseline prior to surgery. - S/P Right reverse TSA, Right CTR (06/13/22): LMA#5 igel + regional at [facility] - Cardiology visit 05/09/24: "Anterior STEMI status 02/2016 PCI to ostial LAD and circumflex. Residual multi-vessel coronary artery disease with 60% RCA and 70% small OM1.. Repeat cath 05/2018 patent LAD stent, moderate LCx stent ISR, negative IFR mid RCA.. Ischemic cardiomyopathy/left ventricular dysfunction, recovered EF 05/2018.. Suspected LE PAD -- reduced pulses with mild RLE>LT claudication.. Patient remains stable from a cardiovascular standpoint. Remains fairly active (>4METS) without anginal type symptoms. On exam no signs of heart failure. From cardiac standpoint OK to proceed with planned neck surgery without additional cardiac testing/intervention prior.. Continue single antiplatelet therapy with clopidogrel, can switch to ASA perioperative period if preferred but needs to remain on AM of surgery" Chart Review Chart Review: Acceptable Risk for Surgery and Patient seen in Pre Admission Testing Teaching & Discussion Pre-Anesthesia Teaching/Discussion Notes: Instructed NPO after midnight before surgery,except medications with 15 cc of water. Medication instructions provided according to the PAT guidelines. History Surgery Operation Date: 05/28/24 07:15 Proposed Procedures p C3-C4 Anterior Cervical Discectomy and Fusion, C4-C7 Plate Removal, Spinal Cord Monitoring - Duane Amos MD Height/Weight Height: 5 ft 9 in Weight: 75.9 kg Allergies Allergy/AdvReac Type Severity Reaction Status Date / Time No Known Allergies Allergy Verified 05/09/24 13:39 Medications Home Medications Medication Instructions Recorded Confirmed Last Taken nitroglycerin 0.4 mg sublingual 0.4 mg sublingual UD PRN Chest Pain 05/13/22 05/09/24 Unknown tablet atorvastatin 20 mg tablet 20 mg PO DAILY 10/08/23 05/09/24 Unknown isosorbide mononitrate 30 mg 30 mg PO QAM #90 tabs 12/28/23 05/09/24 Unknown tablet,extended release 24 hr meloxicam 15 mg tablet 15 mg PO DAILY #30 tabs 01/04/24 05/09/24 Unknown metoprolol succinate 25 mg 25 mg PO QAM #90 tabs 03/25/24 05/09/24 Unknown tablet,extended release 24 hr tizanidine 4 mg tablet 4 mg PO BID PRN muscle spasticity 03/29/24 05/09/24 Unknown #30 tabs lisinopril 10 mg tablet 10 mg PO QAM #90 tabs 05/01/24 05/09/24 Unknown clopidogrel 75 mg tablet (Plavix) 75 mg PO QAM #90 tabs 05/09/24 05/09/24 Unknown Past Medical History Medical History (Updated 05/06/24 @ 15:56 by Talisha Hale) Alcohol use disorder Anxiety pt denies CAD (coronary artery disease) Anterior STEMI 2015- PCI, [place] to ostial LAD and Cx Repeat cath 2018- showed 40-50% ostial Cx in stent restenosis, 40-50% diffuse mid circumflex, 50-60% latemid RCA (IFR 0.96). Widely patent proximal LAD stent, distal LAD with CHRISTINE II flow potentially suggestive of microvascular dysfunction Cervical spinal stenosis Chronic back pain COPD (chronic obstructive pulmonary disease) Depression pt denies GERD (gastroesophageal reflux disease) Hearing deficit No hearing aids HTN (hypertension) Hyperlipidemia Ischemic cardiomyopathy Follows with [facility] cardio Myocardial infarction 02/2016 - Dr Marky Moses historian Prediabetes Patient denies HGBA1C 04/27/22 6.2% Exercise / Class Metabolic Activity II 4-5 Yardwork/Stairs/Walk up hill (one FS: no CP, no SOB) Past Family History Family History Mother Family history of diabetes mellitus Family hx of colon cancer Brother Family history of esophageal cancer twin brother Other No family history of adverse response to anesthesia Past Surgical History Surgical History (Updated 05/06/24 @ 15:56 by Talisha Hale) History of arthroscopy of left shoulder x2 History of cardiac cath 2017 > stents x2 2019 > no stents History of carpal tunnel surgery of right wrist (06/13/22) History of esophagogastroduodenoscopy (EGD) (2019) History of fusion of cervical spine x2 History of heart artery stent 2017 > stents x2 History of left inguinal hernia repair History of lumbar discectomy History of reverse total replacement of right shoulder joint (06/13/22) Right reverse TSA, Right CTR (06/13/22): LMA#5 igel + regional at [facility] History of right inguinal hernia repair History of surgical procedure on eye proper using laser left History of tooth extraction all teeth removed - Dentures Past Anesthesia History No Hx of Anesthesia Complications and No Family Hx of Anesthesia Complications History of PONV No Hx of PONV and No Hx of Motion Sickness Social History Smoking Status: Current every day smoker tobacco type: cigarettes Smoking cigarettes per day: < 1/2 PPD Do You Dip or Chew Tobacco: No Hx Alcohol Use: Yes Alcohol type: beer alcohol intake frequency: 3 or more drinks per day (3-4 drinks/day (varies, no ETOH x 3 days)) Hx Substance Use: No substance use type: does not use Review of Systems Patient denies chest pain, shortness of breath, dyspnea on exertion, fever, chills, cough, wheezing, palpitations. Physical Exam Vital Signs BP 102/62 P 69 TEMP 97.9 SP02 95%RA RESP 16 Physical Decreased cervical extension range of motion. Full TMJ range of motion. TMD 3 finger breaths Mallampati Score II Dentition: full upper/lower plates Lungs: clear throughout to auscultation Cardiac: regular rate and rhythm, no murmurs noted Spine: normal Carotid arteries: negative bruit Extremities: no LE edema Lab Results Anesthesia Preop Results Results Anesthesia Widget: WBC 8.99 K/ul (4.8-10.8) 05/09/24 Hgb 15.2 g/dl (14.0-18.0) 05/09/24 Hct 43.1 % (42.0-52.0) 05/09/24 Plt 220 K/uL (130-400) 05/09/24 Na 131 mmol/L (136-145) L 05/09/24 K 4.4 mmol/L (3.5-5.1) 05/09/24 Cl 97 mmol/L (98-107) L 05/09/24 CO2 27 mmol/L (21-32) 05/09/24 BUN 16 mg/dl (6-23) 05/09/24 Creat 1.05 mg/dl (0.6-1.4) 05/09/24 Glucose Level 162 mg/dl (70-99(Fasting)) H 05/09/24 PT 11.4 Seconds (9.0-12.0) 05/09/24 PTT 29 Seconds (21-31) 05/09/24 INR 1.1 (0.9-1.1) 05/09/24 Blood Type O Positive 05/09/24 Antibody Screen NEGATIVE 05/09/24 Testing Laboratory Results *Chronic hyponatremia* Electrocardiogram Date: 05/09/24 NSR at 61bpm. Possible septal infarct, age undetermined. Echocardiogram Date: 05/05/18 EF: 50-55% LV Function: normal Other Findings: + LVH (Borderline/asymmetric) and + diastolic dysfunction (Grade 1) Mild apical inferior hypokinesis Compared to study from 2016, the LV systolic function has improved and the wall motion is now nearly normal Stress Test Date: 05/25/18 Type: nuclear SUMMARY: 1. Myocardial perfusion study positive for a small amount of mild anteroapical, apical ischemia (SDS 4). 2. Stress ECG uninterpretable. 3. Average functional capacity. Achieved 7.2 METS. No exercise-induced chest pain. 4. Normal LV size. Normal LV function EF 56% with paradoxical septal motion. (Had subsequent cardiac cath- see below) Cardiac Catheterization Date: 06/18/18 Findings: LM -moderate caliber, mild diffuse disease LAD -widely patent ostial to proximal stent, mid segment 30% at takeoff of diagonals, distal LAD largely free disease as wraps around apex, CHRISTINE II flow in distal LAD. 2 small diagonals without significant disease Circumflex -40-50% ostial in-stent restenosis, diffuse 4050% mid segment disease. Small to moderate caliber OM 2, OM 3 without significant disease RCA -dominant, diffuse 20% proximal to mid, late-mid 50-60% focal, distal luminal irregularities in right PDA, PLB Summary: 1. Moderate nonobstructive coronary artery disease. 40-50% ostial circumflex in-stent restenosis, 40-50% diffuse mid circumflex. 50-60% latemid RCA (IFR 0.96). Widely patent proximal LAD stent, distal LAD with CHRISTINE II flow potentially suggestive of microvascular dysfunction. 2. Mildly elevated intracardiac filling pressure Recommendations: Continued ASCVD risk factor modification. Blood pressure control, diuretics for elevated LVEDP. Continue to maximize antianginal therapy for residual disease, microvascular dysfunction
[2024-05-28] MEDS ORDERED: REMIFENTANIL HCL 1 MG VIAL IV ONE ×2 (06:23→09:57)
[2024-05-28] MEDS: LR 15ML/HR IV SCH (06:25)
[2024-05-28] MEDS: ACETAMINOPHEN 500 MG TAB PO SCH (06:32)
[2024-05-28] MEDS: LR 60ML/HR IV SCH (06:32)
[2024-05-28] MEDS: GABAPENTIN 300 MG CAP PO SCH (06:32)
[2024-05-28] MEDS ORDERED: MIDAZOLAM HCL 1 MG/ML 2ML VIAL ONE (06:35)
[2024-05-28] MEDS ORDERED: PHENYLEPHRINE HCL 10 MG/ML VIAL ONE (06:35)
[2024-05-28] MEDS ORDERED: ROCURONIUM BROMIDE 10 MG/ML 5 ML VIAL IV ONE (06:35)
[2024-05-28] MEDS ORDERED: SUCCINYLCHOLINE 100MG/5ML SYR IV ONE (06:35)
[2024-05-28] MEDS ORDERED: fentaNYL citrate PF 100 MCG/2 ML VIAL ONE (06:35)
[2024-05-28] MEDS ORDERED: ePHEDrine sulfate 50 MG/ML AMP IV PRN (06:54)
[2024-05-28] MEDS ORDERED: ATROPINE SULFATE 0.1 MG/ML 10ML SYR IV PRN (06:54)
[2024-05-28] MEDS ORDERED: ONDANSETRON INJ 2 MG/ML 2 ML VIAL IV PRN ×2 (06:54→12:59)
--- NOTE | 2024-05-28 07:31 | History & Physical Bridge Note ---
Date of Service May 28, 2024 History & Physical Bridge Note I have examined the patient, reviewed the History & Physical and in the interval since the performance of the History & Physical I have noted the following changes of clinical significance: no changes noted
[2024-05-28] MEDS ORDERED: GLYCOPYRROLATE 0.2 MG/ML VIAL ONE ×3 (07:46→12:30)
[2024-05-28] MEDS ORDERED: ePHEDrine sulfate 50 MG/ML AMP ONE ×2 (07:48→12:14)
[2024-05-28] MEDS ORDERED: DEXAMETHASONE SOD INJ 4 MG/ML VIAL ONE (08:31)
[2024-05-28] MEDS ORDERED: ONDANSETRON INJ 2 MG/ML 2 ML VIAL ONE (09:59)
[2024-05-28] MEDS ORDERED: PROPOFOL IV EMULSION 10 MG/ML 100 ML VIAL IV ONE (11:22)
[2024-05-28] MEDS ORDERED: ceFAZolin 330 MG/ML 1 GM VIAL ONE (11:30)
[2024-05-28] MEDS ORDERED: HYDROmorphone INJ 2 MG/ML SYR/VIAL ONE (12:10)
[2024-05-28] MEDS: THROMBIN 5000 UNITS KIT ONE (12:21)
[2024-05-28] MEDS: GELATIN SPONGE 12-7MM ONE (12:21)
[2024-05-28] MEDS: VANCOMYCIN HCL 1000MG/20ML VIAL ONE (12:22)
[2024-05-28] MEDS ORDERED: NEOSTIGMINE METHYLSULFATE 1 MG/ML 10ML VIAL ONE (12:30)
--- NOTE | 2024-05-28 12:57 | Post Operative Brief Note ---
PG Immediate Post Op with CF Date of Surgery May 28, 2024 Pre & Post Diagnosis Operation Date: 05/28/24 07:30 Pre-Op Diagnosis: Pseudoarthrosis of Cervical Spine, Neck Pain with Post-Op Diagnosis: Pseudoarthrosis of Cervical Spine, Neck Pain with I identified the patient and participated in the time-out.: Yes Procedure Operation Date: 05/28/24 07:30 Actual Procedures p C3-C4 Anterior Cervical Discectomy and Fusion, Hardware Removal, Spinal Cord Monitoring - Duane Amos MD Surgeon Duane Amos MD Business Education Instructor none Estimated Blood Loss 30 Findings Consistent with Post-Op Diagnosis Specimens Specimen Description: no specimen collected per surgeon Drains Hood Catheter
[2024-05-28] MEDS ORDERED: DO NOT ADMINISTER PNEUMOCOCCAL VACCINE PRN (12:59)
[2024-05-28] MEDS ORDERED: MAGNESIUM HYDROXIDE SUSP 30 ML UDC PO PRN (12:59)
[2024-05-28] MEDS ORDERED: FAMOTIDINE 20 MG TAB PO PRN (12:59)
[2024-05-28] MEDS ORDERED: SOD PHOSPHATE/SOD BIPHOSPHATE ENEMA 132 ML BTL PR PRN (12:59)
[2024-05-28] MEDS ORDERED: dexAMETHasone 8 MG in SYRINGE 0 ML IV PRN (12:59)
[2024-05-28] MEDS ORDERED: METOCLOPRAMIDE HCL INJ 5 MG/ML 2 ML VIAL IV PRN (12:59)
[2024-05-28] MEDS ORDERED: LORazepam 2 MG/1 ML VIAL IV PRN ×2 (12:59→17:55)
[2024-05-28] MEDS ORDERED: bisacodyL 10 MG SUPP PR PRN (12:59)
[2024-05-28] MEDS ORDERED: RACEPINEPHRINE 2.25% NEBU SOLN 0.5 ML VIAL INH PRN (12:59)
[2024-05-28] MEDS ORDERED: LORazepam 0.5 MG TAB PO PRN (12:59)
[2024-05-28] MEDS ORDERED: DO NOT ADMINISTER FLU VACCINE PRN (12:59)
[2024-05-28] MEDS ORDERED: ACETAMINOPHEN 500 MG TAB PO PRN (12:59)
[2024-05-28] MEDS ORDERED: hydrOXYzine HCl 25 MG TAB PO PRN (12:59)
[2024-05-28] MEDS ORDERED: NALOXONE HCL 0.4 MG/1 ML VIAL/CARP IV PRN (12:59)
[2024-05-28] MEDS ORDERED: ONDANSETRON 4 MG OD TAB PO PRN (12:59)
[2024-05-28] MEDS ORDERED: PROMETHAZINE 12.5 MG/50.5 ML BAG IV PRN (12:59)
[2024-05-28] MEDS ORDERED: diphenhydrAMINE Capsule 25 MG CAP PO PRN (12:59)
[2024-05-28] MEDS ORDERED: ACETAMINOPHEN 1,000 MG/100 ML VIAL IV PRN (12:59)
[2024-05-28] MEDS ORDERED: ALUMINUM/MAGNESIUM SUSP 30 ML UDC PO PRN (12:59)
[2024-05-28] MEDS ORDERED: NITROGLYCERIN SL 0.4 MG/TAB TAB SL PRN (13:05)
--- NOTE | 2024-05-28 13:12 | Anesthesiology Progress Note ---
Date of Service May 28, 2024 Anesthesia Post Procedure Vital Signs Vital Signs: Temp Pulse Resp BP Pulse Ox O2 Del Method 05/28/24 06:16 98.1 F 54 L 20 128/73 97 Room Air Pain Intensity Neck: Pain Intensity: 5 Transfer of Care Handoff Completed per policy Notes Mental Status: alert / awake / arousable and participated in evaluation Patient Amnestic to Procedure: Yes Nausea / Vomiting: adequately controlled Pain: adequately controlled Airway Patency, RR, SpO2: stable & adequate BP & HR: stable & adequate Hydration State: stable & adequate Anesthetic Complications: no major complications apparent and Pt Satisfied with anesthetic care
[2024-05-28] MEDS: fentaNYL citrate PF 100 MCG/2 ML VIAL IV PRN (13:17)
--- NOTE | 2024-05-28 13:39 | Fluoroscopy Report ---
FL cervical 2-3V CLINICAL HISTORY: ACDF C3-C4 C4-C7 PLATE REMOVAL COMPARISON STUDY: Cervical spine MRI February 08, 2024. Cervical spine radiographs May 09, 2024. FLUOROSCOPY TIME: 9 9.4 seconds. Ka,r: 9.21 mGy FLUOROSCOPIC IMAGES: 11 FINDINGS: Fluoroscopy was provided during hardware removal and subsequent C3-C4 anterior discectomy a nd fusion. Previous C4 through C7 anterior discectomy and fusion is noted. Endotracheal tube is parti ally imaged. IMPRESSION: Fluoroscopy provided during hardware removal and subsequent C3-C4 anterior discectomy an d fusion. ACT 112: Negative or not required by law. Electronically signed by: Juve Patel M.D. 05/28/2024 1:38 PM
[2024-05-28 13:42] LABS: BUN Creatinine Ratio 8.7 (10-20); Calcium 8.8 mg/dl (8.6-10.3); Creatinine Clr Calc Pharmacy 66.7 ml/min
[2024-05-28] MEDS: TRANEXAMIC ACID / 0.7% NACL 1000MG/100ML BAG IV ONE (16:11)
[2024-05-28] MEDS: TRANEXAMIC ACID 100 MG/ML 10 ML VIAL IV STA (16:12)
[2024-05-28] MEDS: ceFAZolin 2000MG 2,000 MG/15 ML SYR IV SCH ×2 (17:52→18:36)
[2024-05-28] MEDS: FLOSEAL HEMOSTATIC MATRIX 5ML TOP ONE (17:52)
[2024-05-28] MEDS ORDERED: GLUCOSE 40% GEL 15 GM TUBE PO PRN (17:58)
[2024-05-28] MEDS ORDERED: DEXTROSE 50% 50 ML SYRINGE IV PRN (17:58)
[2024-05-28] MEDS ORDERED: GLUCAGON FOR INJ 1 MG VIAL SQ PRN (17:58)
[2024-05-28] MEDS ORDERED: CARBOHYDRATES FOR HYPOGLYCEMIA PO PRN (17:58)
[2024-05-28] MEDS ORDERED: GLUCOSE 10 TAB/TUBE PO PRN (17:58)
--- NOTE | 2024-05-28 18:03 | Hospitalist Consultation ---
Date of Consultation May 28, 2024 Assessment & Plan (1) Cervical spinal stenosis due to adjacent segment disease after fusion procedure: s/p C3-C4 Anterior Cervical Discectomy and Fusion, Hardware Removal, Spinal Cord Monitoring - Duane Amos MD EBL 30cc however do note he had some bleeding post-op, now w/ dressing in place/c/d/i and notable was on plavix through 05/27 as discussed w/ primary They would like to HOLD OFF RESUMING ANY ASA/PLAVIX FOR NOW No CP/SOB reported, on 2L NC post-op, titrate as able Had been given TXA for bleeding IVF, pain control, bowel regimen, PT/OT per primary service Monitor labs, CBC, BMP, Mag in AM but also checking B12/folate given MCV >100 and etoh use (2) CAD (coronary artery disease): Follows w/ [facility], recent note 05/09/24 Hx Anterior STEMI 2015- PCI, SALBADOR to ostial LAD and CxRepeat cath 2018- showed 40-50% ostial Cx in stent restenosis, 40-50% diffuse mid circumflex, 50-60% latemid RCA (IFR 0.96). Widely patent proximal LAD stent, distal LAD with CHRISTINE II flow potentially suggestive of microvascular dysfunction Continue Lipitor 20mg, ISMN 30mg daily, metoprolol 25mg daily PLAVIX ON HOLD FOR NOW ABOVE Holding lisinopril until AM BMP/BP assessed prior to resuming No CP/SOB reported (3) Alcohol use disorder: 2-3 beers daily, no hx withdrawal reported AWSS ordered for precaution Notable MCV 108 on recent CBC, will add B12/Folate to AM labs and suspect one if not both will be low and likely benefit from supplementation at dc Will start thiamine 100mg QAM empirically and also would likely benefit from continued use at dc (4) Prediabetes: last A1c 6.2 BSG AC/HS, SSI added while inpatient. Monitor BSG/adjustment as needed (5) COPD (chronic obstructive pulmonary disease): not on any medications at home, supplemental o2 as need edpost op rec outpt PFT if not already done smoking cessation encouraged, nicotine patch if needed (6) Hyperlipidemia: can continue lipitor 20mg daily Plan Dispo: continued inpatient stay Thank you for allowing hospitalist service to participate in the care of Mr De La Cruz Will follow along in AM. Please call with any questions/concerns. Supervising Physician Co-Signing Physician Notes The patient was seen by me. The chart was reviewed. Case discussed with DOT [place]. Agree with assessment and plan History of Present Illness Reason for Consultation: medical management Requesting Physician: Dr Amos Attending Physician: Duane Amos MD History of Present Illness 68yo male presented for C3-C4 Anterior Cervical Discectomy and Fusion, Hardware Removal with Dr Amos this morning. Eval in 304, did have some bleeding in PACU, TXA provided. Dressing changed. Dressing in place. Discussed Plavix use, cardiology recs to continue day of surgery. Patient DENIES taking this morning. Denies aspirin use either. Suspect increased bleeding from ongoing plavix use, messaged primary to let them know he had been on Plavix until yesterday. Numbness/tingling much improved. Placed on ice chips at present time, tolerating. No stridor. No CP/SOB reported. Does drink 2-3 beers daily, no hx withdrawal. Did drink last night. Current everyday smoker. Holding lisinopril for now, will monitor renal function/BMP in AM. Questions/concerns addressed at this time. Allergies Allergy/AdvReac Type Severity Reaction Status Date / Time No Known Allergies Allergy Verified 05/28/24 06:12 Home Medications Medication Instructions Recorded Confirmed Type nitroglycerin 0.4 mg sublingual 0.4 mg sublingual UD PRN Chest Pain 05/13/22 05/28/24 History tablet atorvastatin 20 mg tablet (Lipitor) 20 mg PO DAILY 10/08/23 05/28/24 History isosorbide mononitrate 30 mg 30 mg PO QAM #90 tabs 12/28/23 05/28/24 Rx tablet,extended release 24 hr meloxicam 15 mg tablet 15 mg PO DAILY #30 tabs 01/04/24 05/28/24 Rx metoprolol succinate 25 mg 25 mg PO QAM #90 tabs 03/25/24 05/28/24 Rx tablet,extended release 24 hr tizanidine 4 mg tablet 4 mg PO BID PRN muscle spasticity 03/29/24 05/28/24 Rx #30 tabs clopidogrel 75 mg tablet (Plavix) 75 mg PO QAM #90 tabs 05/09/24 05/28/24 Rx lisinopril 10 mg tablet (Zestril) 10 mg PO QAM 05/28/24 05/28/24 History Patient History Medical History Depression pt denies Cervical spinal stenosis Prediabetes Patient denies HGBA1C 04/27/22 6.2% COPD (chronic obstructive pulmonary disease) CAD (coronary artery disease) Anterior STEMI 2015- PCI, SALBADOR to ostial LAD and Cx Repeat cath 2018- showed 40-50% ostial Cx in stent restenosis, 40-50% diffuse mid circumflex, 50-60% latemid RCA (IFR 0.96). Widely patent proximal LAD stent, distal LAD with CHRISTINE II flow potentially suggestive of microvascular dysfunction Poor historian Alcohol use disorder HTN (hypertension) Chronic back pain GERD (gastroesophageal reflux disease) Hearing deficit No hearing aids Anxiety pt denies Hyperlipidemia Ischemic cardiomyopathy Follows with [facility] cardio Myocardial infarction 02/2016 - Dr Negro Surgical History History of carpal tunnel surgery of right wrist (06/13/22) History of reverse total replacement of right shoulder joint (06/13/22) Right reverse TSA, Right CTR (06/13/22): LMA#5 igel + regional at [facility] History of arthroscopy of left shoulder x2 History of esophagogastroduodenoscopy (EGD) (2018) History of fusion of cervical spine x2 History of lumbar discectomy History of right inguinal hernia repair History of left inguinal hernia repair History of tooth extraction all teeth removed - Dentures History of surgical procedure on eye proper using laser left History of heart artery stent 2017 > stents x2 History of cardiac cath 2017 > stents x2 2019 > no stents Family History Mother Family history of diabetes mellitus Family hx of colon cancer Brother Family history of esophageal cancer twin brother Other No family history of adverse response to anesthesia Social History Smoking Status: Current every day smoker Tobacco Type: Cigarettes Cigarettes Per Day: < 1/2 PPD; Second Hand Exposure: No; Do You Dip or Chew Tobacco: No; Tobacco Cessation Education Requested by Patient: No Hx Alcohol Use: Yes Alcohol type: beer Hx Substance Use: No Preferred Language: Arabic Communication Ability: Effective Manager Mba Required: No Beliefs That Will Affect Care: None Current Living Situation: Alone Current Living Situation Comment: [facility] Other Information That Helps Us Care for You: No Feels Safe at Home: Yes Safety Concerns: Feels Safe At This Time Seatbelt Use: always Assistive Devices: Denture - Upper, Denture - Lower and Glasses Physical Exam 2 Physical Exam: General: 68yo male sitting up in bed, cervical dressing in place, c/d/i, VINH drain w/ bloody drainage HEENT: dressing as above, trachea midline without stridor, tolerating secretions without issue, mm slightly dry Resp: even/unlabored, slightly diminished in the bases but no wheezing/rales, 3L NC post-op CV: RRR, no significant m/r/g, no pitting edema GI: +BS, soft/NT no boggs MSK/Neuro: ka[place] kura kaupapa maori strength equal bilaterally, not confused, answering questions appropriatley Psych: AOx3, cooperative with exam Results & Data Results & Data Vital Signs (Past 12 Hours) Vital Signs Temp Pulse Pulse Resp BP Pulse Ox O2 Del Method 05/28/24 17:06 Nasal Cannula 05/28/24 16:51 36.5 C 69 18 158/80 H 92 Nasal Cannula 05/28/24 16:40 74 18 147/77 H 96 Nasal Cannula 05/28/24 16:20 73 18 164/87 H 96 Nasal Cannula 05/28/24 16:05 69 18 154/81 H 93 Nasal Cannula 05/28/24 15:50 75 20 151/82 H 93 Nasal Cannula 05/28/24 15:35 36.7 C 68 20 150/88 H 94 Nasal Cannula 05/28/24 15:20 70 18 141/72 H 94 Nasal Cannula 05/28/24 15:10 67 18 137/74 93 Nasal Cannula 05/28/24 15:00 69 16 139/72 93 Nasal Cannula 05/28/24 14:50 67 20 137/74 91 Nasal Cannula 05/28/24 14:40 72 18 141/74 H 93 Nasal Cannula 05/28/24 14:30 66 18 137/67 93 Nasal Cannula 05/28/24 14:20 73 20 141/73 H 93 Nasal Cannula 05/28/24 14:10 60 12 132/75 93 Nasal Cannula 05/28/24 14:00 70 17 132/70 92 Nasal Cannula 05/28/24 13:50 63 16 145/70 H 92 Nasal Cannula 05/28/24 13:40 70 17 149/79 H 92 Nasal Cannula 05/28/24 13:30 69 20 149/77 H 93 Nasal Cannula 05/28/24 13:20 66 16 133/85 93 Nasal Cannula 05/28/24 13:10 65 20 138/75 93 Nasal Cannula 05/28/24 13:00 68 20 150/74 H 96 Oxymask 05/28/24 12:50 68 17 144/77 H 95 Oxymask 05/28/24 12:48 36.0 C L 78 18 134/88 96 Oxymask 05/28/24 06:16 36.7 C 54 L 20 128/73 97 Room Air O2 Flow Rate 05/28/24 17:06 3 05/28/24 16:51 3 05/28/24 16:40 3 05/28/24 16:20 3 05/28/24 16:05 3 05/28/24 15:50 3 05/28/24 15:35 3 05/28/24 15:20 3 05/28/24 15:10 3 05/28/24 15:00 3 05/28/24 14:50 2 05/28/24 14:40 2 05/28/24 14:30 2 05/28/24 14:20 2 05/28/24 14:10 2 05/28/24 14:00 2 05/28/24 13:50 2 05/28/24 13:40 2 05/28/24 13:30 2 05/28/24 13:20 2 05/28/24 13:10 2 05/28/24 13:00 3 05/28/24 12:50 6 05/28/24 12:48 6 05/28/24 06:16 Laboratory Results 05/28/24 13:11 Diagnostic Findings Cervical Spine X-Ray 05/28/24 07:30 FL cervical 2-3V CLINICAL HISTORY: ACDF C3-C4 C4-C7 PLATE REMOVAL COMPARISON STUDY: Cervical spine MRI February 08, 2024. Cervical spine radiographs May 09, 2024. FLUOROSCOPY TIME: 9 9.4 seconds. Ka,r: 9.21 mGy FLUOROSCOPIC IMAGES: 11 FINDINGS: Fluoroscopy was provided during hardware removal and subsequent C3-C4 anterior discectomy and fusion. Previous C4 through C7 anterior discectomy and fusion is noted. Endotracheal tube is partially imaged. IMPRESSION: Fluoroscopy provided during hardware removal and subsequent C3-C4 anterior discectomy and fusion. ACT 112: Negative or not required by law. Electronically signed by: Juve Patel M.D. 05/28/2024 1:38 PM PG Care Time/CCT Total # of Minutes Spent Total Time Spent with Patient: Total time spent is greater than 50% in coordination of care (as documented) at patient's floor/unit and/or counseling patient: Coding Level of Care Code 36891 IN/OBS CONSULT LVL 3,45M Diagnoses Cervical spinal stenosis due to adjacent segment disease after fusion procedure M48.02; M50.30 CAD (coronary artery disease) I25.10 Alcohol use disorder F19.90 Prediabetes R73.03 COPD (chronic obstructive pulmonary disease) J44.9 Hyperlipidemia E78.5
[2024-05-28] MEDS: oxyCODONE/ACETAMINOPHEN 5mg/325mg TAB PO PRN (18:08)
[2024-05-28] MEDS: DOCUSATE SODIUM/SENNA 50/8.6MG TAB PO SCH (20:57)
[2024-05-28] MEDS: HYDROmorphone INJ 0.5 MG/0.5 ML SYR IV PRN (20:58)
[2024-05-28] MEDS: INSULIN ASPART PER UNIT CHARGE SC SCH (20:58)
[2024-05-29 05:09] VITALS: BP 137/52; TEMP 97.5
[2024-05-29] MEDS: POLYETHYLENE (MIRALAX) 17 GM PACK PO SCH (05:22)
[2024-05-29 07:00] LABS: Hematocrit (blood only) 35.4 % (42.0-52.0); Hemoglobin 12.9 g/dl (14.0-18.0); Mean Corpuscular Hemoglobin 39.3 pg (25.0-34.0); Mean Corpuscular Hgb Conc 36.4 g/dL (32.0-36.0); Mean Corpuscular Volume 107.9 fL (80.0-100.0); Mean Platelet Volume 9.7 fL (9.4-12.4); Platelet Count 153 K/uL (130-400); RDW Standard Deviation 63.6 fL (36.4-46.3); Red Blood Count 3.28 M/uL (4.70-6.10); White Blood Count 10.33 K/ul (4.8-10.8)
[2024-05-29 07:17] LABS: BUN Creatinine Ratio 13.5 (10-20); Calcium 8.9 mg/dl (8.6-10.3); Creatinine Clr Calc Pharmacy 77.2 ml/min; Magnesium 1.8 mg/dl (1.7-2.4); Potassium 4.4 mmol/L (3.5-5.1)
[2024-05-29 07:33] LABS: Thyroid Stimulating Hormone 0.444 uIu/ml (0.300-4.500)
[2024-05-29 07:44] LABS: Folate (Folic Acid),Ser orPlas 9.83 ng/ml (>5.38)
[2024-05-29] MEDS: THIAMINE HCL 100 MG TAB PO SCH (08:16)
[2024-05-29] MEDS: ISOSORBIDE MONO EXTENDED REL 30 MG TABCR PO SCH (08:17)
[2024-05-29] MEDS: METOPROLOL SUCC 25MG EXT REL TAB PO SCH (08:17)
[2024-05-29] MEDS: ATORVASTATIN 20 MG TAB PO SCH (08:18)
--- NOTE | 2024-05-29 08:29 | Hospitalist Progress Note ---
Date of Service May 29, 2024 Assessment & Plan (1) Cervical spinal stenosis due to adjacent segment disease after fusion procedure: Plan: s/p C3-C4 Anterior Cervical Discectomy and Fusion with Dr Amos 05/28 EBL 30cc however do note he had some bleeding post-op, likely due to Plavix use (last dose 05/27), was given TXA post op for bleeding Post-op management per primary service WBC wnl 10.3, notable did get dose of dexamethasone with surgery. Hgb 15.2--> 12.9 --> acute blood loss anemia from surgery along with some aspect of dilution but notable did have significant bleeding post-operatively on plavix through 05/27 which is likely culprit. B12 low normal (checked w/ alcohol use/MCV >100) Tolerating soft diet Plavix to resume monday per patient, no CP/SOB reported Remains on 2L NC --> repeat CXR for eval NO ACUTE FINDING Rec to continue incentive spirometer at dc Na 132, appears stable compared to baseline. TSH checked/wnl. Can resume lisinopril for today if no lightheaded/dizziness given stable BP/renal function Rec titrating off O2 but if able/no issues can plan for dc. Hospitalist service will follow along if remains inpatient. Please call with any questions/concerns. (2) CAD (coronary artery disease): Plan: Follows w/ [facility], recent note 05/09/24 Hx Anterior STEMI 2016- PCI, SALBADOR to ostial LAD and CxRepeat cath 2018- showed 40-50% ostial Cx in stent restenosis, 40-50% diffuse mid circumflex, 50-60% latemid RCA (IFR 0.96). Widely patent proximal LAD stent, distal LAD with CHRISTINE II flow potentially suggestive of microvascular dysfunction On Lipitor 20mg, ISMN 30mg daily, metoprolol 25mg daily PLAVIX ON HOLD FOR NOW ABOVE Held lisinopril until AM BMP/BP assessed --> can resume 05/30 No CP/SOB reported (3) Alcohol use disorder: Plan: 2-3 beers daily, no hx withdrawal reported AWSS ordered for precaution Notable MCV 108 on recent CBC, will add B12/Folate to AM labs and suspect one if not both will be low and likely benefit from supplementation at dc B12 low normal at 237 --> IM ordered while inpatient, would recommend patient continue daily PO at dc. Folate 1mg PO daily while inpatient but stores replete do not need to continue at dc Continue thiamine PO empirically while inpatient. Notable TSH wnl 0.444 for completeness (4) Prediabetes: Plan: last A1c 6.2 BSG AC/HS, SSI added while inpatient. Monitor BSG/adjustment as needed (5) COPD (chronic obstructive pulmonary disease): Plan: not on any medications at home, supplemental o2 as needed post op rec outpt PFT if not already done smoking cessation encouraged, nicotine patch if needed (6) Hyperlipidemia: Plan: can continue lipitor 20mg daily Plan Dispo: continued inpatient stay Thank you for allowing hospitalist service to participate in the care of Mr De La Cruz. Will follow if remains inpatient, message sent to primary. Otherwise can sign off. Please call with any questions/concerns. Admission and Anticipated Discharge Date Admission Date: May 28, 2024 Supervising Physician Co-Signing Physician Notes The patient was not seen by me. The chart was reviewed. Case discussed with DOT [place]. Agree with assessment and plan Subjective Eval this morning, sitting up in recliner chair. Titrated to 2L, CXR negative for acute finding. Advanced to easy to chew diet. Reports no SOB, occasional cough at times. No fever/chills. Encouraged smoking cessation. Continue to wear collar. Continue incentive spirometer. Plans for dc this afternoon if no issues, rec at least til after lunch/titrate off oxygen. 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, not confused, answering questions appropriately Psych: AOx3, cooperative with exam Results & Data Results & Data Vital Signs (Past 12 Hours) Vital Signs Temp Pulse Resp BP Pulse Ox O2 Del Method O2 Flow Rate 05/29/24 07:05 Nasal Cannula 2 05/29/24 05:06 36.4 C L 60 15 137/52 L 96 Nasal Cannula 2 05/29/24 04:00 66 16 94 Nasal Cannula 3 05/29/24 02:57 36.6 C 65 15 144/76 H 95 Nasal Cannula 2 05/29/24 01:16 36.5 C 61 16 159/80 H 92 Nasal Cannula 05/28/24 23:08 36.5 C 65 16 154/81 H 94 Nasal Cannula 2 05/28/24 22:38 67 16 94 Nasal Cannula 3 05/28/24 21:09 36.5 C 66 15 138/66 93 Nasal Cannula 2 05/28/24 20:29 64 16 98 Nasal Cannula 2 Laboratory Results 05/29/24 06:09 05/29/24 06:09 Mag 1.8 B12 237 Folate 9.83 TSH 0.444 Diagnostic Findings Cervical Spine X-Ray 05/28/24 07:30 FL cervical 2-3V CLINICAL HISTORY: ACDF C3-C4 C4-C7 PLATE REMOVAL COMPARISON STUDY: Cervical spine MRI February 08, 2024. Cervical spine radiographs May 09, 2024. FLUOROSCOPY TIME: 9 9.4 seconds. Ka,r: 9.21 mGy FLUOROSCOPIC IMAGES: 11 FINDINGS: Fluoroscopy was provided during hardware removal and subsequent C3-C4 anterior discectomy and fusion. Previous C4 through C7 anterior discectomy and fusion is noted. Endotracheal tube is partially imaged. IMPRESSION: Fluoroscopy provided during hardware removal and subsequent C3-C4 anterior discectomy and fusion. ACT 112: Negative or not required by law. Electronically signed by: Juve Patel M.D. 05/28/2024 1:38 PM Chest X-Ray 05/29/24 08:24 XR chest 1V portable CLINICAL HISTORY: f/u hypoxia, s/p acdf COMPARISON STUDY: 06/06/2022 FINDINGS: Heart size and pulmonary vasculature are normal. No effusion, consolidation, or pneumothorax. IMPRESSION: No acute findings. ACT 112: Negative or not required by law. Electronically signed by: Guillermo Bejarano M.D. 05/29/2024 9:03 AM PG Care Time/CCT Total # of Minutes Spent Total Time Spent with Patient: Total time spent is greater than 50% in coordination of care (as documented) at patient's floor/unit and/or counseling patient: Coding Level of Care Code 67909 SUB INP/OBS CARE 2/35MIN Diagnoses Cervical spinal stenosis due to adjacent segment disease after fusion procedure M48.02; M50.30 CAD (coronary artery disease) I25.10 Alcohol use disorder F19.90 Prediabetes R73.03 COPD (chronic obstructive pulmonary disease) J44.9 Hyperlipidemia E78.5
--- NOTE | 2024-05-29 09:05 | XRay Report ---
XR chest 1V portable CLINICAL HISTORY: f/u hypoxia, s/p acdf COMPARISON STUDY: 06/06/2022 FINDINGS: Heart size and pulmonary vasculature are normal. No effusion, consolidation, or pneumothora x. IMPRESSION: No acute findings. ACT 112: Negative or not required by law. Electronically signed by: Guillermo Bejarano M.D. 05/29/2024 9:03 AM
[2024-05-29] MEDS: CYANOCOBALAMIN 1000 MCG/ML VIAL IM SCH (09:51)
[2024-05-29] MEDS: FOLIC ACID 1 MG TAB PO SCH (09:51)
--- NOTE | 2024-05-29 10:47 | Orthopedic Progress Note ---
Date of Service May 29, 2024 Assessment & Plan (1) Pseudoarthrosis of cervical spine: (2) Cervical spinal stenosis due to adjacent segment disease after fusion procedure: (3) S/P cervical discectomy: (4) S/P cervical spinal fusion: Plan 68-year-old male POD#1 s/p removal of cervical hardware with C3-4 ACDF, doing well overall. Pain is controlled. Medically stable. He is neurologically intact. Previous upper extremity pain and paresthesia have greatly improved, as well as has his perceived strength. Plan: 1. DVT prophylaxis w/ regular ambulation/mobilization; hold Plavix until 05/31/2024. 2. PT/OT at home as taught while inpatient. Continue cervical collar until seen back in the office. 3. Rx for Percocet sent to pharmacy; may also utilize OTC acetaminophen. 4. Daily dressing changes to check for drainage. Showering per discharge instructions section. 5. Disposition - D/C back to [facility] once cleared by PT/OT. 6. F/u as scheduled w/ Dr. Amos for first post-op visit. Subjective Patient is POD#1 s/p cervical hardware removal and ACDF at C3-[address] Amos on 05/28/24. Patient says his pain is well-controlled; he has been using the ordered pain regimen as needed. Denies CP, SOB, N/V, B/L UE pain/paresthesia. He perceives that his strength has improved in the arms. Numbness and tingling paresthesias have also improved. Throat/swallowing soreness continues to improve. He has been compliant with wear of the hard cervical collar. Review of Systems All systems reviewed & are unremarkable except as noted in HPI & below. Physical Exam GENERAL: Speech and cognition is intact. Mood and affect is appropriate. Does not appear in acute distress. Sitting upright in bed and appears comfortable. HEAD: Normocephalic; atraumatic. NECK: Trachea is midline; no cervical lymphadenopathy. Dressing intact to left anterior lateral neck; no evidence of active drainage or dressing saturation. Hard cervical collar donned and well-fitting. CHEST: Regular chest respiration and excursion. NEURO: CN II-XII grossly intact with no focal deficits noted. C5 - C8 w/ intact sensation bilaterally. Upper extremity resisted strength testin/5 strength C5-T1 myotomes; No deficits noted. Results & Data Results & Data Laboratory Results Laboratory Results - last 24 hr 05/28/24 05/28/24 05/29/24 20:48 23:58 06:08 WBC RBC Hgb Hct MCV MCH MCHC RDW Std Deviation RDW Coeff of Beronica Plt Count MPV Sodium Potassium Chloride Carbon Dioxide Anion Gap BUN Creatinine Est Cr Clr Drug Dosing eGFR BUN/Creatinine Ratio Glucose POC Glucose 162 H 172 H 126 H Estimat Average Glucose Hemoglobin A1c Calcium Magnesium Vitamin B12 Folate TSH 05/29/24 05/29/24 06:09 11:24 WBC 10.33 RBC 3.28 L Hgb 12.9 L Hct 35.4 L MCV 107.9 H MCH 39.3 H MCHC 36.4 H RDW Std Deviation 63.6 H RDW Coeff of Beronica 16.0 H Plt Count 153 MPV 9.7 Sodium 132 L Potassium 4.4 Chloride 99 Carbon Dioxide 27 Anion Gap 6 BUN 12 Creatinine 0.89 Est Cr Clr Drug Dosing 77.2 eGFR 92.19 BUN/Creatinine Ratio 13.5 Glucose 122 H POC Glucose 94 Estimat Average Glucose Pending Hemoglobin A1c Pending Calcium 8.9 Magnesium 1.8 Vitamin B12 237 Folate 9.83 TSH 0.444 Diagnostic Findings Cervical Spine X-Ray 05/28/24 07:30 FL cervical 2-3V CLINICAL HISTORY: ACDF C3-C4 C4-C7 PLATE REMOVAL COMPARISON STUDY: Cervical spine MRI February 08, 2024. Cervical spine radiographs May 09, 2024. FLUOROSCOPY TIME: 9 9.4 seconds. Ka,r: 9.21 mGy FLUOROSCOPIC IMAGES: 11 FINDINGS: Fluoroscopy was provided during hardware removal and subsequent C3-C4 anterior discectomy and fusion. Previous C4 through C7 anterior discectomy and fusion is noted. Endotracheal tube is partially imaged. IMPRESSION: Fluoroscopy provided during hardware removal and subsequent C3-C4 anterior discectomy and fusion. ACT 112: Negative or not required by law. Electronically signed by: Juve Patel M.D. 05/28/2024 1:38 PM PG Care Time/CCT Total # of Minutes Spent Total Time Spent with Patient: Total time spent is greater than 50% in coordination of care (as documented) at patient's floor/unit and/or counseling patient: Coding [place] [address] SUB INP/OBS CARE 2/35MIN Patient Type Established Medical Decision Making Moderate Complexity Diagnoses Pseudoarthrosis of cervical spine S12.9XXA Cervical spinal stenosis due to adjacent segment disease after fusion procedure M48.02; M50.30 S/P cervical discectomy Z98.890 S/P cervical spinal fusion Z98.1
[2024-05-29 10:51] VITALS: PULSE 67; RESP 16; O2SAT 98
--- NOTE | 2024-05-29 16:20 | Discharge Summary ---
Date of Service May 29, 2024 Admission HPI (Per Admitting) 05/09/24 office visit: "Patient returns for follow-up, he is upcoming surgery in May, specifically anterior approach to the C3-4 level with decompression, cage placement and arthrodesis, possible removal of anterior cervical spine plate if necessary. He has a pseudoarthrosis at C4-5 from the prior surgery. No change in exam, pain with range of motion of cervical spine. 4 views of the cervical spine AP lateral flexion-extension views reveal the instrumentation as noted from C4-C7, there is subtle amount of motion present at C4-5 indicating a pseudoarthrosis and the retrolisthesis at C3-4. Impression: Cervical stenosis with myelomalacia, pseudoarthrosis. Plan: Today I reviewed the radiographs with the patient and also the previous studies we discussed once again the overall surgical plan. This includes the anterior approach to the C3-4 level, anterior decompression and arthrodesis with cage placement. I reiterated that the posterior approach is still potential as a second part to this procedure with instrumentation and fusion which would address the C4-5 level also. He is working on smoking cessation A-CYS down to a few cigarettes a week, we will have him utilize a bone stimulator postoperatively, he is in agreement with this plan." Admission Exam (Per Admitting) 01/04/24 office visit: "Exam reveals the patient to have reasonably appropriate cervical range of motio n that was decreased [id number] bending for Spurling's maneuver but only axial symptoms at endpoints. He had what I would consider 1/4 biceps brachioradialis and triceps reflexes roughly symmetric. All motor groups are 5/5 in testing in the upper extremities, he did have a mild Tinel's at the right wrist and elbow, questionable positive on the left side." Principal Diagnosis Same as "Discharge Diagnosis" noted below under Discharge Instructions. Discharge Exam GENERAL: Speech and cognition is intact. Mood and affect is appropriate. Does not appear in acute distress. Sitting upright in bed and appears comfortable. HEAD: Normocephalic; atraumatic. NECK: Trachea is midline; no cervical lymphadenopathy. Dressing intact to left anterior lateral neck; no evidence of active drainage or dressing saturation. Hard cervical collar donned and well-fitting. CHEST: Regular chest respiration and excursion. NEURO: CN II-XII grossly intact with no focal deficits noted. C5 - C8 w/ intact sensation bilaterally. Upper extremity resisted strength testin/5 strength C5-T1 myotomes; No d eficits noted. 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 Patient had general anesthesia for the procedure. Patient was admitted to the general orthopedic floor in stable condition postoperatively for pain control and mobilization with physical therapy; they safely and properly performed the ADL tasks demonstrated by PT/OT and met all goals. Pain was controlled with IV pain medication, with a transition to oral medications. Normal return of bowel and bladder function. They worked with therapy, vital signs were acceptable, no need for transfusion, deemed safe for discharge. Patient was then discharged back to [facility] in stable condition. Patient will follow-up with Dr. Amos in the orthospine clinic in approximately 2 weeks, as scheduled, for postoperative care. PG Care Time/CCT Total # of Minutes Spent Total Time Spent with Patient: Total time spent is greater than 50% in coordination of care (as documented) at patient's floor/unit and/or counseling patient: Discharge Plan Discharge Items Patient Disposition: Personal Long Term Reason For Visit: Pseudoarthrosis of Cervical Spine, Neck Pain with Discharge Diagnosis: s/p hardware removal due to pseudoarthrosis with C3-C4 Anterior Cervical Discectomy and Fusion Activity: As commented below Lifting: No more than 5 pounds Bathing: May shower/bathe in 3 days Weightbearing: Full weightbearing Non-emergency contact: Surgeon Call non-emergency contact if: your pain is worsening and your wound has increased drainage Follow-up/Referrals: Nohemi Patel MD [Primary Care Provider] - 06/05/24 11:00 am Duane Amos MD [Surgeon] - Diet: Regular Addtl Attending Provider Instructions: May shower on 3rd day after surgery. You can wash the incision and surgical site with soap and water briefly and then blot dry with a clean towel/cloth. Cover with a new, sterile dry dressing. If unable to change your dressing, then leave hospital dressing intact and cover the area for showering. Do NOT soak incision. No strenuous activity, lifting, or exercise until further instructed. Use the prescribed pain medication, or [id number] Tylenol, as needed for pain relief -- follow directions on the bottle; limit Tylenol to 4,000 mg maximum in a 24-hour period. No use of NSAIDs (i.e ibuprofen/Advil/Motrin, naproxen/Aleve, etc.) for at least 2 months after surgery. Pending Studies at Discharge: No Stand-Alone Forms: My [employer], Smoking Cessation Skilled Items Patient informed of condition?: Yes DNR: No Discharge Level of Care: Other Communicable Disease: No Discharge Prognosis: Improving Lines: None Urinary Catheter: No Medications and DC Order Prescriptions: New cyanocobalamin (vitamin B-12) 1,000 mcg capsule 1,000 mcg PO DAILY Qty: 30 0RF oxycodone-acetaminophen [Percocet] 5-325 mg Tablet 1 tab PO Q4H PRN (Reason: pain) Qty: 30 0RF Continued isosorbide mononitrate 30 mg tablet extended release 24 hr 30 mg PO QAM Qty: 90 3RF metoprolol succinate 25 mg tablet extended release 24 hr 25 mg PO QAM Qty: 90 3RF tizanidine 4 mg tablet 4 mg PO BID PRN (Reason: muscle spasticity) Qty: 30 1RF Patient Comments: "I am not taking any of that any more" nitroglycerin 0.4 mg Tablet, Sublingual 0.4 mg sublingual UD PRN (Reason: Chest Pain) atorvastatin [Lipitor] 20 mg Tablet 20 mg PO DAILY lisinopril [Zestril] 10 mg tablet 10 mg PO QAM Held clopidogrel [Plavix] 75 mg tablet 75 mg PO QAM Qty: 90 3RF Hold Instructions: Resume on 05/31/24. Discontinued meloxicam 15 mg tablet 15 mg PO DAILY Qty: 30 1RF Rx Instructions: with meal. Discharge Orders: Discharge Order (Routine); Ordered 05/29/24 Ordered By: Virgilio Aguirre/Other Patient Handouts: Cervical Fusion Dc Admission Data Admit Date/Time: 05/28/24 12:59 Attending Provider: Duane Amos Admit Provider: Duane Amos Primary Care Provider: Nohemi Patel Other Providers: Peter Dai Other Interventions: Discharge Summary Assessment (RN) Last Done: 05/29/24 11:52
[2024-05-30 11:31] LABS: Estimated Average Glucose 117 mg/dl; Hemoglobin A1C 5.7 % (4.5-5.6)
--- NOTE | 2024-05-31 15:42 | Operative Report ---
PG Post Operative Report Pre & Post Diagnosis Operation Date: 05/28/24 07:30 Pre-Op Diagnosis: Pseudoarthrosis of Cervical Spine, Neck Pain with Post-Op Diagnosis: Pseudoarthrosis of Cervical Spine, Neck Pain with I identified the patient and participated in the time-out.: Yes Procedure Operation Date: 05/28/24 07:30 Actual Procedures p C3-C4 Anterior Cervical Discectomy and Fusion, Spinal Cord Monitoring(Not Applicable) - Duane Amos MD s Hardware Removal,(Not Applicable) - Duane Amos MD Surgeon Duane Amos MD Ux Design Manager none Estimated Blood Loss 30 Findings Consistent with Post-Op Diagnosis Specimens none Description of Procedure 1. C3-4 anterior cervical decompression/arthrodesis. (62403) 2. Insertion of interbody cage with fixation, R0 IC 14 x 17 x 7. (10344) 3. Removal of deep implant, plate fixation screws C4. (25140) 4. Products of decompression for fusion purposes. (44117) Patient was taken operating room and after adequate anesthesia was carefully positioned supine on the OSI table, carefully checked for positioning. After doing so a preprepped was performed the cervical region followed by bringing in fluoroscopy where I marked for the approximate location for the incision on the patient's left side. Prep and drape was performed, began with a transverse incision along the medial border the sternocleidomastoid and advanced down in the routine fashion and to the anterior aspect of the cervical spine. Scar tissue was encountered approaching the anterior aspect I was able to palpate the superior end of the anterior locking plate from C4 down to C7. Once confirming the approximate location relative to the plate using fluoroscopy, I moved ahead with mobilizing the soft tissue over this region, confirmed the location fluoroscopically. Tissue was then mobilized, exposing the superior end of the plate, this included the screw heads into the C4 and the locking screw. This included removal of bone overlying the superior end of the plate and over the interspace region, this was removed with a combination of osteotomes. This bone was collected and then used and the fusion material later in the interbody cage. Once the screw heads were exposed, I used 2.5 mm hex to remove the 2 setscrews for the plate at C4. 16mm pin was then inserted at C3 midline inserted under fl uoroscopic control and also into the right C4 plate screw hole. Retractors were then set, and I then began the procedure with removal of the overlying soft tissue at the C3-4 interspace. I used a combination of osteotomes and then dilators to mobilize this disc space level under fluoroscopic control, and continued this process until is able to elevate it. Curettes were then utilized under visualization with the microscope, to remove the disc material with cartilage from the endplates moving posteriorly. I used the disc base retail specialist to continue to mobilizesin a cephalad manner exposing the posterior spondylosis. High-speed bur was then utilized to remove the overhanging spondylosis and I then completed a decompression using combination of curettes and Kerrison punches to decompress the segment in this region across the interspace out to the uncinates bilaterally. With this completed, I then obtained trials and selected a size cage as noted, fusion materials were then packed within the cage and then I tapped it into excellent position on AP and lateral views. The fixation fins were then inserted and tapped down to proper position without issue. Distractor pins were then removed, combination of Floseal and bone wax was applied. Vancomycin powder was placed, final inspection revealed no issues in the operative area, operative site was closed using interrupted 3-0 Vicryl s utures followed by benzoin and Steri-Strips and sterile dressing, the patient tolerated procedure well was taken recovery room satisfied condition. I attest to the content of the Intraoperative Record and any orders documented therein. Any exceptions are noted below.
== END 2024-05-29 12:08 | disposition home or self-care (01) | DRG 472 ==
LOC: ASU 05:50 → 3E 12:59